=== PATIENT | female | born 1965 | race African-American/Black ===

== ENCOUNTER 2016-10-25 22:16 | Inpatient (IN) | payer MEDICARE, OTHER ==
[2016-10-25] MEDS ORDERED: ASPIRIN 81 MG TABLET, CHEWABLE PO ONE (23:22)
[2016-10-26 01:11] LABS: ABSOLUTE EOSINOPHILS # (AUTO) 0.3 10^3/uL (0.0-0.6); ABSOLUTE LYMPHOCYTES (AUTO) 0.7 10^3/uL (0.5-4.7); ABSOLUTE MONOCYTES (AUTO) 0.3 10^3/uL (0.1-1.4); ABSOLUTE NEUT (AUTO) 3.9 10^3/uL (1.7-8.2); BASOPHILS % (AUTO) 0.9 % (0-2); EOSINOPHILS % (AUTO) 5.1 % (0-6); HEMATOCRIT 27.2 % (36.0-47.0); HEMOGLOBIN 8.3 g/dL (12.0-15.5); HGB HCT DIFFERENCE -2.3; LYMPHOCYTES % (AUTO) 13.1 % (13-45); MEAN CORPUSCULAR HEMOGLOBIN 26.4 pg (27.0-33.4); MEAN CORPUSCULAR HGB CONC 30.6 g/dL (32.0-36.0); MEAN CORPUSCULAR VOLUME 86 fl (80-97); MONOCYTES % (AUTO) 6.3 % (3-13); RED BLOOD COUNT 3.15 10^6/uL (3.72-5.28); RED CELL DISTRIBUTION WIDTH 17.5 % (11.5-14.0); SEGMENTED NEUTROPHILS % (AUTO) 74.6 % (42-78); WHITE BLOOD COUNT 5.2 10^3/uL (4.0-10.5)
[2016-10-26 01:25] LABS: ALANINE AMINOTRANSFERASE 37 U/L (9-52); ALBUMIN 4.2 g/dL (3.5-5.0); ALKALINE PHOSPHATASE 204 U/L (38-126); ASPARTATE AMINO TRANSFERASE 33 U/L (14-36); BILIRUBIN,TOTAL 1.7 mg/dL (0.2-1.3); BLOOD UREA NITROGEN 118 mg/dL (7-20); CALCIUM 7.1 mg/dL (8.4-10.2); CHLORIDE 109 mmol/L (98-107); CREATINE KINASE 107 U/L (30-135); CREATININE RESULT 12.55 mg/dL (0.52-1.25); GLUCOSE 102 mg/dL (75-110); TOTAL PROTEIN 7.5 g/dL (6.3-8.2)
[2016-10-26 01:34] LABS: CARBON DIOXIDE 16 mmol/L (22-30); SODIUM 147.1 mmol/L (137-145)
[2016-10-26 01:38] LABS: ANION GAP 22 (5-19); POTASSIUM 7.2 mmol/L (3.6-5.0)
[2016-10-26] MEDS ORDERED: HEPARIN SOD (PORCINE) 1,000 UNIT/ML 10 ML VIAL IV ONE (03:20)
[2016-10-26] MEDS ORDERED: HEPARIN SODIUM,PORCINE/D5W 250 ML IV PRN (03:20)
[2016-10-26] MEDS ORDERED: SODIUM BICARBONATE 8.4% INJ 50 MEQ/50 ML DISP.SYRIN IV ONE (03:22)
[2016-10-26] MEDS ORDERED: DEXTROSE 50%-WATER 25 GM/50 ML DISP.SYRIN IV ONE (03:23)
[2016-10-26] MEDS ORDERED: INSULIN REG, HUMAN 100 UNIT/ML 3 ML VIAL (PYX) IV ONE (03:23)
[2016-10-26] MEDS ORDERED: HYDROMORPHONE HCL INJ/PF 2 MG/ML AMPULE IV ONE (03:24)
--- NOTE | 2016-10-26 03:25 | ER Document Report ---
ED General - General Chief Complaint: Leg Swelling Stated Complaint: LEFT LEG SWELLING Notes: Patient is 50-year-old female presents with complaint of left leg swelling and need for dialysis. Patient has been to ER several times with complaints of needing dialysis. [facility] She will just show up on Monday and hope to get dialysis. She does not actually go to dialysis clinic. She does not have an actual maintenance craftsman. She is been here several times as well for similar requests. She does have family in this area and therefore does visit this very frequently. She came down today because her [id number] had surgery. Patient also complains that her left leg has become swollen over last 2 days. She's never had this problem before. No history of DVT or PE. No chest pain. No shortness of breath. No fevers. No other complaints at this time. TRAVEL OUTSIDE OF THE [place] IN LAST 30 DAYS: No - Related Data Allergies/Adverse Reactions: acetaminophen [From Percocet] Allergy (Verified 04/16/15 02:18) oxycodone HCl [From Percocet] Allergy (Verified 04/16/15 02:18) alprazolam [From Xanax] Adverse Reaction (Verified 10/25/16 23:16) Hallucinations Past Medical History - Social History Smoking Status: Unknown if Ever Smoked Frequency of alcohol use: None Drug Abuse: Other Family History: Reviewed & Not Pertinent - Past Medical History Cardiac Medical History: Reports: Hx Coronary Artery Disease, Hx Hypertension Endocrine Medical History: Reports: Hx Diabetes Mellitus Type 1 Renal/ Medical History: Reports: Hx End Stage Renal Disease, Hx Peritoneal Dialysis - MWF Past Surgical History: Reports: Hx Coronary Stent, Hx Hysterectomy - Immunizations Immunizations up to date: No Hx Diphtheria, Pertussis, Tetanus Vaccination: No Review of Systems - Review of Systems Notes: My Normal Review Basic REVIEW OF SYSTEMS: CONSTITUTIONAL : Denies fever, chills, or sweats. Denies recent illness. EENT: Denies eye, ear, throat, or mouth pain or symptoms. Denies nasal or sinus congestion. CARDIOVASCULAR: Denies chest pain. RESPIRATORY: Some shortness of breath GASTROINTESTINAL: Denies abdominal pain. Denies nausea, vomiting, or diarrhea. Denies constipation. Last BM: MUSCULOSKELETAL: Body aches. left leg pain and swelling. SKIN: Denies rash or skin lesions. NEUROLOGICAL: Denies altered mental status or loss of consciousness. Denies headache. Denies weakness or paralysis or loss of use of either side. Denies problems with gait or speech. Denies sensory or motor loss. ALL OTHER SYSTEMS REVIEWED AND NEGATIVE. Physical Exam - Vital signs Vitals: Temp Pulse Resp BP Pulse Ox 98.1 F 90 17 184/86 H 99 10/25/16 22:57 10/25/16 22:57 10/25/16 22:57 10/25/16 22:57 10/25/16 22:57 - Notes Notes: General Appearance: Well nourished, alert, cooperative, no acute distress, mild obvious discomfort. Vitals: reviewed, See vital signs table. Head: no swelling or tenderness to the head Eyes: PERRL, EOMI, Conjuctiva clear Mouth: No decreasd moisture Neck: Supple, no neck tenderness, No thyromegaly Chest: Port in right anterior chest wall. Lungs: No wheezing, mild rales, No rhonci, No accessory muscle use, good air exchange bilaterally. Heart: Normal rate, Regular rythm, No murmur, no rub Abdomen: Normal BS, soft, No rigidity, No abdominal tenderness, No guarding, no rebound, no abdominal masses, no organomegaly Extremities: strength 5/5 in all extremities, good pulses in all extremities, left lower leg is extremely swollen. Very edematous. Bedside ultrasound shows that the proximal left femoral vein is noncompressible. Skin: warm, dry, appropriate color, no rash Neuro: speech clear, oriented x 3, normal affect, responds appropriately to questions. Course - Vital Signs Vital signs: Temp Pulse Resp BP Pulse Ox 98.1 F 90 17 184/89 H 99 10/25/16 23:18 10/25/16 23:18 10/25/16 23:18 10/25/16 23:18 10/25/16 23:18 - Laboratory Result Diagrams: 10/26/16 00:56 10/26/16 00:56 Laboratory results interpreted by me: 10/26/16 10/26/16 10/26/16 00:56 00:56 00:56 RBC 3.15 L Hgb 8.3 L Hct 27.2 L MCH 26.4 L MCHC 30.6 L RDW 17.5 H Plt Count 112 L PT 15.9 H APTT 38.8 H Sodium 147.1 H Potassium 7.2 H* Chloride 109 H Carbon Dioxide 16 L Anion Gap 22 H BUN 118 H Creatinine 12.55 H Est GFR ( Amer) 4 L Est GFR (Non-Af Amer) 3 L Calcium 7.1 L Total Bilirubin 1.7 H Alkaline Phosphatase 204 H - EKG Interpretation by Me Additional EKG results interpreted by me: 10/26/16 03:24 EKG is reviewed and interpreted by me. EKG shows normal sinus rhythm with rate of [address] segment elevation or depression. No ischemic T wave inversions. WV interval, QRS duration are within normal range. QTc interval is slightly prolonged. - Transfer of Care Notes: 10/26/16 03:43 I did perform a bedside ultrasound the patient's left leg being that we do not have venous ultrasound at night at this facility. Her left proximal femoral vein was completely noncompressible suggesting that she does have a DVT in the left leg. I will place her on a heparin drip. I did treat her for potassium. We'll do a recheck BMP in 2 hours. Her EKG shows no concerning changes for hyperkalemia. I did speak with the nursing supervisor stone and we do have availability for dialysis today. I did speak with the hospitalist who agrees to admit the patient for dialysis and treatment of what I suspect will be DVT of the left lower extremity. Patient clinically looks well. She is not working hard to breathe. Her lung charles just show mild rales. She does have some fluid on the lungs on chest x-ray. She has no fever no leukocytosis. I do not suspect pneumonia. Dictation of this chart was performed using voice recognition software; therefore, there may be some unintended grammatical errors. Discharge - Discharge Clinical Impression: leg swelling, Hyperkalemia, End stage renal disease Condition: Stable Disposition: ADMITTED INPATIENT Admitting Provider: Hospitalist Unit Admitted: [facility]
[2016-10-26 03:34] LABS: PROTHROMBIN TIME 15.9 SEC (11.4-15.4)
[2016-10-26 03:35] LABS: PARTIAL THROMBOPLASTIN TIME 38.8 SEC (23.5-35.8)
[2016-10-26 04:27] LABS: ABSOLUTE EOSINOPHILS # (AUTO) 0.2 10^3/uL (0.0-0.6); ABSOLUTE LYMPHOCYTES (AUTO) 0.6 10^3/uL (0.5-4.7); ABSOLUTE MONOCYTES (AUTO) 0.1 10^3/uL (0.1-1.4); ABSOLUTE NEUT (AUTO) 3.5 10^3/uL (1.7-8.2); BASOPHILS % (AUTO) 0.8 % (0-2); EOSINOPHILS % (AUTO) 4.5 % (0-6); HGB HCT DIFFERENCE -1.3; LYMPHOCYTES % (AUTO) 13.2 % (13-45); MEAN CORPUSCULAR HEMOGLOBIN 26.7 pg (27.0-33.4); MEAN CORPUSCULAR HGB CONC 31.5 g/dL (32.0-36.0); MEAN CORPUSCULAR VOLUME 85 fl (80-97); MONOCYTES % (AUTO) 1.5 % (3-13); RED BLOOD COUNT 2.95 10^6/uL (3.72-5.28); RED CELL DISTRIBUTION WIDTH 17.3 % (11.5-14.0); WHITE BLOOD COUNT 4.3 10^3/uL (4.0-10.5)
[2016-10-26 04:29] LABS: HEMOGLOBIN 7.9 g/dL (12.0-15.5)
[2016-10-26 04:40] LABS: CHLORIDE 107 mmol/L (98-107); GLUCOSE 313 mg/dL (75-110)
[2016-10-26 04:52] LABS: BLOOD UREA NITROGEN 122 mg/dL (7-20)
[2016-10-26 05:03] LABS: CARBON DIOXIDE 16 mmol/L (22-30)
[2016-10-26 05:06] LABS: ANION GAP 24 (5-19)
[2016-10-26 05:07] LABS: CALCIUM 6.6 mg/dL (8.4-10.2)
[2016-10-26] MEDS ORDERED: IPRATROPIUM/ALBUTEROL 0.5-2.5 MG/3 ML AMPUL NEB PRN (08:33)
[2016-10-26] MEDS ORDERED: CALCIUM GLUCONATE 1000 MG/10 ML INJ IV ONE ×2 (08:57→09:02)
--- NOTE | 2016-10-26 08:58 | PDOC H&P ---
History of Present Illness Admission Date/PCP: 10/26/16 03:51 None Nephro [place], [place] Patient complains of: LLE swelling History of Present Illness: HARVINDER LUZ is a 50 year old female with known end-stage renal disease, by her account on every Monday hemodialysis, but with her last hemodialysis session Monday of last week. According to emergency room physician, with whom I discussed the patient, patient has a known history of noncompliance with her hemodialysis. She lives in [place] , and goes to a dialysis clinic there but is currently in our area visiting family. Please refer to emergency room physician's notes for further discussion of same. Presents to the emergency room for evaluation of a 2 day history of slowly progressive left lower extremity swelling. No prior such episodes. Denies any history of DVT or pulmonary embolus. Mild associated shortness of breath and nausea but no vomiting fever or chills. No chest pain. Occasional dry cough, but nothing out of the ordinary, according to the patient. With formal Doppler study not available in the redrying machine operator hours at our facility, the emergency room physician performed a bedside ultrasound, which revealed a completely noncompressible proximal left femoral vein, suggesting DVT. He has since started her on heparin drip for same. Systemic anticoagulation discussed with patient. Patient understands the risks of systemic anti-coagulation to include but not be limited to internal bleeding , which can take the form of GI tract and/or intracranial hemorrhage, the latter of which can result in or stroke with permanent paralysis. Patient has no absolute contraindication to systemic anticoagulation. Above discussed in lay person's terms. Patient agrees to undergo systemic anticoagulation. Patient has been discussed with emergency room physician who evaluated the patient. . Laboratory results are listed in [facility] and are reviewed. X-ray summary results are listed below, with full report(s) reviewed. . EKG reviewed. And compared to prior tracing from 02/24/2016. Social history/personal habits: . 3 children. On disability. No use of alcohol tobacco or illicit drugs. Allergies/adverse reactions are listed in [facility] and are reviewed. Home medications Home medications initially autopopulated into [facility] may not accurately reflect patient's true medications, dosages, and/or frequencies. Unfortunately, patient uncertain of medications/dosages/frequencies. Order has been entered for staff to contact family, outpatient physician, and/or pharmacy to more accurately determine medications, dosages, and frequencies and to contact physician when that has been accomplished. REVIEW OF SYSTEMS: Constitutional: No fever or chills. Eyes: No current vision complaints. ENT: No swallowing problems or complaints. Partial hearing loss. Pulmonary: See history and present illness. Cardiovascular: No current complaints, including chest pain. Gastrointestinal: See history and present illness. Skin: No current complaints, including rashes. Hematologic: No unusual easy bruising or bleeding. Neurologic: Difficulty ambulating, due to prior stroke; patient currently undergoing rehabilitation for same. Currently uses a walker. Musculoskeletal: See history and present illness. Psychiatric: Mild Anxiety Endocrine: No current complaints, including polyuria. Genitourinary: No current complaints, including dysuria. PHYSICAL EXAMINATION: Feet 1 inches tall. 65.5 kg. KATIE 27.3 kg/m. Blood pressure 147/84. Pulse 79 and regular. 100% saturation on room air. Respirations are 18 and unlabored. Temperature 98.1. Slightly overweight otherwise well nourished though somewhat chronically ill- appearing -[place] female, initially asleep. Awakens relatively easily. Pleasant alert and cooperative. No obvious distress other than perhaps mildly anxious. Female steward/stewardess lounge Gemini is present. Skin is warm and dry. No grossly obvious evidence of rash in areas of skin examined. No subcutaneous nodules palpated. ENT: Hearing grossly normal to normal conversation. Tongue midline on protrusion pink and slightly moist. Eyes: No scleral icterus. Pupils equal and reactive to light at 4 mm. [place] conjunctivae. Neck is supple and nontender to gentle active range of motion and palpation. Midline trachea. No palpable thyroid nodule mass enlargement or tenderness. Lymphatic: No palpable cervical or clavicular nodes. Neck and lymphatic exams limited by patient body habitus. Psychiatric: Fair to reasonable insight into acute and chronic medical issues. Oriented to time location and why here. Lungs: Auscultation reveals clear and equal breath sounds bilaterally. No use of accessory respiratory muscles. Cardiovascular: Heart regular rate and rhythm, without murmur or rub. Possible subtle gallop auscultated. No carotid or abdominal aortic bruits. Bilateral slightly pitting calf ankle and pedal edema, more prominent on the left. Faintly palpable dorsalis pedis pulses. Abdomen: soft, somewhat obese, nontender with positive bowel sounds. Unable to adequately evaluate abdomen for masses or organomegaly due to body habitus. Extremities: Feet are warm and dry. No right calf tenderness to compression; mild left calf tenderness to compression. Gentle manipulation of lower extremities fails to reveal any obvious evidence of injury or instability to knees hips or ankles. There is slightly restricted range of motion of left knee due to calf swelling. Neurologic: Moves upper extremities grossly normally. Patellar reflexes absent. Absent Babinski. Light touch is intact at feet. Dorsiflexion and plantarflexion of feet 5 / 5 and symmetric. Past Medical History Cardiac Medical History: Reports: Coronary Artery Disease, Myocardial Infarction , Hypertension Denies: DVT, Hyperlipidema, Pulmonary Embolism Pulmonary Medical History: Reports: Asthma EENT Medical History: Reports: Ears - Partial hearing loss Denies: Eyes, Throat Neurological Medical History: Reports: Ischemic CVA - Subsequent ambulatory difficulty, currently undergoing rehabilitation for same., Seizures - Last episode in 2014. Endocrine Medical History: Denies: Diabetes Mellitus Type 1, Diabetes Mellitus Type 2, Hyperthyroidism, Hypothyroidism Renal/ Medical History: Reports: End Stage Renal Disease GI Medical History: Reports: Gastroesophageal Reflux Disease Denies: Cirrhosis, Hepatitis, Peptic Ulcer Disease Musculoskeltal Medical History: Denies: Arthritis Skin Medical History: Denies: Eczema, Psoriasis, Other Psychiatric Medical History: Reports: General Anxiety Disorder Denies: Alcohol Dependency, Depression, Substance Abuse, Tobacco Dependency Hematology: Reports: Anemia - Chronic Infectious Medical History: Denies: Hepatitis B, Hepatitis C Past Surgical History Past Surgical History: Reports: Coronary Stent, Hysterectomy, Other - Hemodialysis catheter insertion. Social History Information Source: Patient, Emergency Med Personnel, [facility] Records Lives with: Spouse/Significant other Smoking Status: Unknown if Ever Smoked Frequency of Alcohol Use: None Hx Recreational Drug Use: No Drugs: None Hx Prescription Drug Abuse: No - Advance Directive Resuscitation Status: Full Code Surrogate healthcare decision maker:: Family History Family History: Reviewed & Not Pertinent Parental Family History Reviewed: Yes Children Family History Reviewed: Yes Sibling(s) Family History Reviewed.: Yes Medication/Allergy Home Medications: B Complex & C No.20/Folic Acid [Triphrocaps Softgel] 1 mg PO DAILY 10/26/16 Calcitriol [Rocaltrol 0.5 mcg Capsule] 0.5 mcg PO DAILY 10/26/16 Clonazepam [Klonopin 2 mg Tablet] 2 mg PO BID 10/26/16 Efavirenz [Sustiva 600 mg Tablet] 600 mg PO DAILY 10/26/16 Furosemide [Lasix 80 mg Tablet] 80 mg PO DAILY 10/26/16 Gabapentin [Neurontin 300 mg Capsule] 300 mg PO Q8 10/26/16 Hydromorphone HCl [Dilaudid 2 mg Tablet] 2 mg PO BID 10/26/16 Ipratropium/Albuterol Sulfate [Iprat-Albut 0.5-3(2.5) mg/3 ml] 3 ml IH Q6HP PRN 10/26/16 Labetalol HCl [Trandate] 200 mg PO Q8 10/26/16 Lamivudine [Epivir Hbv] 25 mg PO DAILY 10/26/16 Levetiracetam [Keppra] 500 mg PO Q12 10/26/16 Minoxidil [Loniten 2.5 Mg Tablet] 2.5 mg PO BID PRN 10/26/16 Allergies/Adverse Reactions: acetaminophen [From Percocet] Allergy (Verified 10/26/16 08:46) rash oxycodone HCl [From Percocet] Allergy (Verified 04/16/15 02:18) sulfamethoxazole [From Bactrim] Allergy (Verified 10/26/16 09:59) trimethoprim [From Bactrim] Allergy (Verified 10/26/16 09:59) alprazolam [From Xanax] Adverse Reaction (Verified 10/26/16 08:46) Hallucinations Physical Exam Vital Signs: Temp Pulse Resp BP Pulse Ox 98.1 F 90 13 128/78 H 100 10/25/16 23:18 10/25/16 23:18 10/26/16 08:01 10/26/16 08:01 10/26/16 08:01 Results Laboratory Results: 10/26/16 04:15 10/26/16 10/26/16 10/26/16 04:15 04:15 07:12 WBC 4.3 RBC 2.95 L Hgb 7.9 L Hct 25.0 L MCV 85 MCH 26.7 L MCHC 31.5 L RDW 17.3 H Plt Count 108 L Seg Neutrophils % 80.0 H Lymphocytes % 13.2 Monocytes % 1.5 L Eosinophils % 4.5 Basophils % 0.8 Absolute Neutrophils 3.5 Absolute Lymphocytes 0.6 Absolute Monocytes 0.1 Absolute Eosinophils 0.2 Absolute Basophils 0.0 Sodium 147.0 H Cancelled Potassium 7.0 H* Cancelled Chloride 107 Cancelled Carbon Dioxide 16 L Cancelled Anion Gap 24 H Cancelled BUN 122 H Cancelled Creatinine 12.40 H Cancelled Est GFR ( Amer) 4 L Cancelled Est GFR (Non-Af Amer) 3 L Cancelled Glucose 313 H Cancelled Calcium 6.6 L* Cancelled Total Bilirubin Cancelled AST Cancelled ALT Cancelled Alkaline Phosphatase Cancelled Total Protein Cancelled Albumin Cancelled 10/26/16 07:12 WBC RBC Hgb Hct MCV MCH MCHC RDW Plt Count Seg Neutrophils % Lymphocytes % Monocytes % Eosinophils % Basophils % Absolute Neutrophils Absolute Lymphocytes Absolute Monocytes Absolute Eosinophils Absolute Basophils Sodium Potassium Cancelled Chloride Carbon Dioxide Anion Gap BUN Creatinine Est GFR ( Amer) Est GFR (Non-Af Amer) Glucose Calcium Total Bilirubin AST ALT Alkaline Phosphatase Total Protein Albumin Impressions: Chest X-Ray 10/25/16 23:22 IMPRESSION: Moderate airspace opacities of both lung charles ; differential diagnosis includes pulmonary edema, CHF, and/ or pneumonia. Assessment & Plan - Diagnosis (1) Abnormal CXR Plan: Report reviewed. Consultation with Dr. Gorge Salomon for possible adjustment of the dialysis catheter. (2) Anticoagulated Is this a current diagnosis for this admission?: Yes (3) Hyperkalemia Is this a current diagnosis for this admission?: YesPlan: Discussed with Dr. Moody, instructional design consultant nephrology. Patient currently being dialyzed. (4) Swelling of left lower extremity Is this a current diagnosis for this admission?: Yes (5) End stage renal disease Is this a current diagnosis for this admission?: YesPlan: Nephrology consult. (6) Deep vein thrombosis (DVT) of left lower extremity Qualifiers: Affected thrombotic vein of extremity: unspecified vein of extremity Chronicity: acute Qualified Code(s): I82.402 - Acute embolism and thrombosis of unspecified deep veins of left lower extremity Is this a current diagnosis for this admission?: YesPlan: Formal Bilateral lower extremity venous Doppler study. I have strongly encouraged patient not to get out of bed without notifying staff , to avoid a fall with injury. Knee high SCDs for DVT prophylaxis. Impression and plans were discussed with patient, who concurs. Time spent in evaluation and management of patient: 55 minutes. - Inpatient Certification Based on my medical assessment, after consideration of the patient's comorbidities, presenting symptoms, or acuity I expect that the services needed warrant INPATIENT care.: Yes I certify that my determination is in accordance with my understanding of Medicare's requirements for reasonable and necessary INPATIENT services [42 CFR 412.3e].: Yes Medical Necessity: Significant Comorbidiites Make Outpatient Treatment Too Risky , Need Close Monitoring Due to Risk of Patient Decompensation, Need For Continuous Telemetry Monitoring, Risk of Complication if Not Cared For in Hospital Post Hospital Care: D/C or Transfer Summary
[2016-10-26 09:38] LABS: ALANINE AMINOTRANSFERASE 32 U/L (9-52); ALBUMIN 3.7 g/dL (3.5-5.0); ALKALINE PHOSPHATASE 191 U/L (38-126); ASPARTATE AMINO TRANSFERASE 32 U/L (14-36); BILIRUBIN,TOTAL 1.6 mg/dL (0.2-1.3); CARBON DIOXIDE 17 mmol/L (22-30); CHLORIDE 107 mmol/L (98-107); CREATININE RESULT 12.89 mg/dL (0.52-1.25); GLUCOSE 84 mg/dL (75-110); SODIUM 147.3 mmol/L (137-145); TOTAL PROTEIN 7.1 g/dL (6.3-8.2)
[2016-10-26 09:46] LABS: BLOOD UREA NITROGEN 126 mg/dL (7-20)
--- NOTE | 2016-10-26 09:51 | PDOC CONSULTATION ---
Consultation Consult Date: 10/26/16 Consult reason:: Congestive heart failure and severe hyperkalemia in the setting of ESRD on hemodialysis with noncompliance. History of Present Illness Admission Date/PCP: 10/26/16 08:33 History of Present Illness: Mrs. García is a 50 years old -[place] lady with a past medical history of ESRD on hemodialysis for many years through a right IJ catheter from [place] who is here visiting family and comes in to the ER with complaints of pain and swelling of left leg and some shortness of breath. She is ESRD patient on dialysis in [place] and is unsure of dump grader. She has had a history of severe noncompliance on many fronts. He states her last dialysis was Monday. She had a similar presentation with severe hyperkalemia early of last year and was dialyzed here. Besides that she has had presentations to the ER for various issues down the road. Patient denies any worsening of her shortness of breath no estimate chest pain no history of any coughing spells fever chills. She has had no clotting disorders in the past. During evaluations in the ER by the ER doctor she was found to have left DVT on initial Doppler study. A confirmatory Doppler studies pending but she has been begun on IV heparin. The notes that the swelling is somewhat better since she has been on the IV heparin. Other studies revealed that she had a potassium of 7.2. She has been administered D50/insulin and IV bicarbonate. Incidentally I also noted that her calcium was also low.. Unfortunately that has not been addressed. Presently the patient is undergoing dialysis as per orders placed by me and discussed with the treating nurse. She has no issues on dialysis. Vital signs show that her blood pressures is in the high 180 systolic. Past Medical History Cardiac Medical History: Reports: Coronary Artery Disease, Hypertension-primary Renal/ Medical History: Reports: End Stage Renal Disease Hematology Medical History: Reports Anemia of Chronic Kidney Disease Past Surgical History Past Surgical History: Reports: Coronary Stent, Hysterectomy Social History Smoking Status: Unknown if Ever Smoked Frequency of Alcohol Use: None Hx Recreational Drug Use: No Drugs: None Hx Prescription Drug Abuse: No Family History Parental Family History Reviewed: No Children Family History Reviewed: No Sibling(s) Family History Reviewed.: No Medication/Allergy Home Medications: Calcitriol 1 cap PO DAILY 10/26/16 Clonazepam 2 tab PO BID 10/26/16 Ergocalciferol (Vitamin D2) [Vitamin D] 2.5 tab PO BID 10/26/16 Gabapentin 1 cap PO BID 10/26/16 Lactobacillus Combination No.4 [Probiotic] 1 cap PO DAILY 10/26/16 Levetiracetam [Keppra 500 mg Tablet] 1 tab PO BID 10/26/16 Allergies/Adverse Reactions: acetaminophen [From Percocet] Allergy (Verified 10/26/16 08:46) rash oxycodone HCl [From Percocet] Allergy (Verified 04/16/15 02:18) alprazolam [From Xanax] Adverse Reaction (Verified 10/26/16 08:46) Hallucinations Review of Systems Review of Systems: Constitutional: [PRESENT: as per HPI. ABSENT: chills, fever(s), headache(s), weight gain, weight loss] Eyes: [ABSENT: visual disturbances] Ears: [ABSENT: hearing changes] Cardiovascular: [ABSENT: chest pain, edema, orthropnea, palpitations] Respiratory: [ABSENT: cough, hemoptysis] Gastrointestinal: [ABSENT: abdominal pain, constipation, diarrhea, hematemesis, hematochezia, nausea, vomiting] Genitourinary: [ABSENT: dysuria, hematuria] Musculoskeletal: [ABSENT: joint swelling] Integumentary: [ABSENT: rash, wounds] Neurological: [ABSENT: abnormal gait, abnormal speech, confusion, dizziness, focal weakness, syncope] Psychiatric: [ABSENT: anxiety, depression, homicidal ideation, suicidal ideation ] Endocrine: [ABSENT: cold intolerance, heat intolerance, menstrual abnormalities , polydipsia, polyuria] Hematologic/Lymphatic: [ABSENT: easy bleeding, easy bruising, lymphadenopathy] Constitutional: ABSENT: headache(s) Physical Exam Vital Signs: Temp Pulse Resp BP Pulse Ox 98.1 F 90 13 128/78 H 100 10/25/16 23:18 10/25/16 23:18 10/26/16 08:01 10/26/16 08:01 10/26/16 08:01 General appearance: PRESENT: no acute distress Eye exam: PRESENT: conjunctiva pink, EOMI, PERRLA. ABSENT: nystagmus, periorbital swelling Mouth exam: PRESENT: moist. ABSENT: neck supple Neck exam: ABSENT: lymphadenopathy, meningismus, tenderness, thyromegaly, tracheal deviation Respiratory exam: PRESENT: clear to auscultation dee, decreased breath sounds. ABSENT: crackles, rhonchi Cardiovascular exam: PRESENT: +S1, +S2, systolic murmur GI/Abdominal exam: PRESENT: soft. ABSENT: ascites, distended, firm, guarding, tenderness Extremities exam: PRESENT: +1 edema - However her left leg has got 1-2+ edema with tenderness around the cuff muscles. Neurological exam: PRESENT: alert, awake, oriented to person, oriented to place , oriented to time Psychiatric exam: PRESENT: flat affect Skin exam: PRESENT: pallor. ABSENT: dry, erythema, mottled, rash, vesicles Results Impressions: Chest X-Ray 10/25/16 23:22 IMPRESSION: Moderate airspace opacities of both lung charles ; differential diagnosis includes pulmonary edema, CHF, and/ or pneumonia. Assessment & Plan - Diagnosis (1) Hypocalcemia Plan: Her corrected calcium is low. Will place orders for stat IV calcium which has been discussed with the treating nurse in the ED. Especially so because of her hyperkalemia. We will also follow this with p.o. calcium and calcitriol which I doubt she has been taking because of issues with noncompliance. Discuss issues with the patient and her . (2) Hyperkalemia Is this a current diagnosis for this admission?: YesPlan: Severe. However no EKG changes. She is on dialysis now which should rectify her problems. Orders placed for 1 K into 2 hours followed by 2 k for 1 hour. We will also give her IV calcium for stabilizing myocardium. (3) End stage renal disease Is this a current diagnosis for this admission?: YesPlan: Patient undergoing dialysis at the moment. No issues seen on dialysis. Vital signs shows high blood pressure in the 180s systolics. See how she responds to ultrafiltration. Aim to remove at least 3 L of fluid. Patient's is electing to not do more than that of the moment because apparently she goes into hypotensive episodes. Discussed with the patient about the fact that she is in heart failure and she would tolerate more fluid removal but patient's is adamant of the moment. Continue to monitor. Discuss issues at length with the treating nurse. (4) Deep vein thrombosis (DVT) of left lower extremity Qualifiers: Affected thrombotic vein of extremity: unspecified vein of extremity Chronicity: acute Qualified Code(s): I82.402 - Acute embolism and thrombosis of unspecified deep veins of left lower extremity Is this a current diagnosis for this admission?: YesPlan: As per hospitalist/ED physician. Patient on IV heparin. (5) Anemia Qualifiers: Other causes of anemia: chronic disease, kidney Qualified Code(s): D64.9 - Anemia, unspecified Plan: Was planning to give erythropoietin but because of his severe hypertension we will hold off. We will check iron studies and see if she needs iron replacements in the meanwhile. (6) CHF (congestive heart failure) Plan: See how she responds to dialysis and ultrafiltration. Advised on compliance with diet and dialysis.
[2016-10-26 09:59] LABS: ANION GAP 23 (5-19)
[2016-10-26 10:01] LABS: CALCIUM 6.4 mg/dL (8.4-10.2)
[2016-10-26 10:02] LABS: POTASSIUM 6.8 mmol/L (3.6-5.0)
[2016-10-26] MEDS: CALCIUM CARBONATE 500 MG TAB.CHEW PO SCH ×2 (10:45→17:22)
[2016-10-26] MEDS: DOCUSATE SODIUM 100 MG CAPSULE PO SCH ×2 (10:45→17:23)
[2016-10-26] MEDS: CALCITRIOL 0.25 MCG CAPSULE PO SCH ×2 (10:45→17:22)
[2016-10-26] MEDS ORDERED: HEPARIN SOD (PORCINE) 1,000 UNIT/ML 10 ML VIAL IV PRN (11:07)
--- NOTE | 2016-10-26 12:14 | XCELERA REPORT ---
[address] [address] Lower Extremity Venous Evaluation Name: HARVINDER LUZ Age: 50 yrs Gender: Female : 1965 Patient Status: Inpatient Patient Location: \S\[id number]\S\A Study Date: 10/26/2016 10:10 AM Procedure: Color flow and duplex imaging of the veins of the left lower extremity as well as the right Common Femoral vein. Reason For Study: LLE swelling; DVT on ER MD U/S Ordering Physician: JOLENE LUX Performed By: Saud Browning Right Sided Venous Evaluation The right common femoral vein is fully compressible. Spontaneous and phasic flow is present in the right common femoral vein. Left Sided Venous Evaluation Normal vessel filling wall to wall, compression and augmentation as well as Colour flow down to the infrageniculate veins. Interpretation Summary No duplex evidence of DVT or obstruction in the left lower extremity nor in the right Common Femoral vein. : JOLENE LUX [place]
--- NOTE | 2016-10-26 14:56 | EKG REPORT ---
SEVERITY:- ABNORMAL ECG - SINUS RHYTHM ABNRM R PROG, CONSIDER ASMI OR LEAD PLACEMENT : Confirmed by: Lizzy Santana MD 26-Oct-2016 14:55:24
--- NOTE | 2016-10-26 16:08 | PDOC PROGRESS REPORT ---
Subjective Progress Note for:: 10/26/16 Subjective:: The patient was seen earlier today on rounds. The patient complains of left leg pain. Doppler is negative. The patient denies any nausea, vomiting, diarrhea, shortness of breath, dizziness, chest pain, heart palpitations, fevers , or chills. The patient has remained afebrile. Blood pressures have been in a good range. When prompted the patient voices no other concerns at this time. Review of systems: The rest of the review of systems is negative. Physical Exam Vital Signs: Temp Pulse Resp BP Pulse Ox 97.5 F 85 20 107/61 100 10/26/16 14:01 10/26/16 14:01 10/26/16 14:01 10/26/16 14:01 10/26/16 14:01 Intake & Output 10/24/16 10/25/16 10/26/16 23:59 23:59 23:59 Output Total 3200 Balance -3200 General appearance: PRESENT: no acute distress, well-developed, well-nourished Head exam: PRESENT: atraumatic, normocephalic Eye exam: PRESENT: conjunctiva pink, EOMI, PERRLA. ABSENT: scleral icterus Ear exam: PRESENT: normal external ear exam Mouth exam: PRESENT: moist, tongue midline Neck exam: ABSENT: carotid bruit, JVD, lymphadenopathy, thyromegaly Respiratory exam: PRESENT: clear to auscultation dee. ABSENT: rales, rhonchi, wheezes Cardiovascular exam: PRESENT: RRR. ABSENT: diastolic murmur, rubs, systolic murmur Pulses: PRESENT: normal dorsalis pedis pul Vascular exam: PRESENT: normal capillary refill GI/Abdominal exam: PRESENT: normal bowel sounds, soft. ABSENT: distended, guarding, mass, organolmegaly, rebound, tenderness Rectal exam: PRESENT: deferred Extremities exam: PRESENT: full ROM, other - Feet are warm and dry. No right calf tenderness to compression; mild left calf tenderness to compression. Gentle manipulation of lower extremities fails to reveal any obvious evidence of injury or instability to knees hips or ankles.. ABSENT: calf tenderness, clubbing, pedal edema Neurological exam: PRESENT: alert, awake, oriented to person, oriented to place , oriented to time, oriented to situation, CN II-XII grossly intact. ABSENT: motor sensory deficit Psychiatric exam: PRESENT: appropriate affect, normal mood. ABSENT: homicidal ideation, suicidal ideation Skin exam: PRESENT: dry, intact, warm. ABSENT: cyanosis, rash Results Laboratory Results: Labs- Last Values WBC 4.3 10^3/uL (4.0-10.5) 10/26/16 04:15 RBC 2.95 10^6/uL (3.72-5.28) L 10/26/16 04:15 Hgb 7.9 g/dL (12.0-15.5) L 10/26/16 04:15 Hct 25.0 % (36.0-47.0) L 10/26/16 04:15 MCV 85 fl (80-97) 10/26/16 04:15 MCH 26.7 pg (27.0-33.4) L 10/26/16 04:15 MCHC 31.5 g/dL (32.0-36.0) L 10/26/16 04:15 RDW 17.3 % (11.5-14.0) H 10/26/16 04:15 Plt Count 108 10^3/uL (150-450) L 10/26/16 04:15 Seg Neutrophils % 80.0 % (42-78) H 10/26/16 04:15 Lymphocytes % 13.2 % (13-45) 10/26/16 04:15 Monocytes % 1.5 % (3-13) L 10/26/16 04:15 Eosinophils % 4.5 % (0-6) 10/26/16 04:15 Basophils % 0.8 % (0-2) 10/26/16 04:15 Absolute Neutrophils 3.5 10^3/uL (1.7-8.2) 10/26/16 04:15 Absolute Lymphocytes 0.6 10^3/uL (0.5-4.7) 10/26/16 04:15 Absolute Monocytes 0.1 10^3/uL (0.1-1.4) 10/26/16 04:15 Absolute Eosinophils 0.2 10^3/uL (0.0-0.6) 10/26/16 04:15 Absolute Basophils 0.0 10^3/uL (0.0-0.2) 10/26/16 04:15 PT 15.9 SEC (11.4-15.4) H 10/26/16 00:56 INR 1.23 10/26/16 00:56 APTT 40.6 SEC (23.5-35.8) H 10/26/16 11:43 Sodium 147.3 mmol/L (137-145) H 10/26/16 08:26 Potassium 6.8 mmol/L (3.6-5.0) H* 10/26/16 08:26 Chloride 107 mmol/L (98-107) 10/26/16 08:26 Carbon Dioxide 17 mmol/L (22-30) L 10/26/16 08:26 Anion Gap 23 (5-19) H 10/26/16 08:26 BUN 126 mg/dL (7-20) H 10/26/16 08:26 Creatinine 12.89 mg/dL (0.52-1.25) H 10/26/16 08:26 Est GFR ( Amer) 4 (>60) L 10/26/16 08:26 Est GFR (Non-Af Amer) 3 (>60) L 10/26/16 08:26 Glucose 84 mg/dL (75-110) 10/26/16 08:26 Calcium 6.4 mg/dL (8.4-10.2) L* 10/26/16 08:26 Total Bilirubin 1.6 mg/dL (0.2-1.3) H 10/26/16 08:26 Direct Bilirubin 0.0 mg/dL (0.0-0.3) 10/26/16 08:26 AST 32 U/L (14-36) 10/26/16 08:26 ALT 32 U/L (9-52) 10/26/16 08:26 Alkaline Phosphatase 191 U/L (38-126) H 10/26/16 08:26 Creatine Kinase 107 U/L (30-135) 10/26/16 00:56 CK-MB (CK-2) 1.44 ng/mL (<4.55) 10/26/16 00:56 Total Protein 7.1 g/dL (6.3-8.2) 10/26/16 08:26 Albumin 3.7 g/dL (3.5-5.0) 10/26/16 08:26 Impressions: Chest X-Ray 10/25/16 23:22 IMPRESSION: Moderate airspace opacities of both lung charles ; differential diagnosis includes pulmonary edema, CHF, and/ or pneumonia. Assessment & Plan - Diagnosis (1) Hyperkalemia Is this a current diagnosis for this admission?: YesPlan: Secondary to noncompliance. The patient has been dialyzed will repeat potassium and follow. (2) Hypocalcemia Is this a current diagnosis for this admission?: YesPlan: Management as per nephrology will repeat and follow. (3) End stage renal disease Is this a current diagnosis for this admission?: YesPlan: Patient has been dialyzed. (4) Anemia in chronic kidney disease Is this a current diagnosis for this admission?: YesPlan: Will repeat CBC in the a.m. and follow. (5) Benzodiazepine dependence, continuous Is this a current diagnosis for this admission?: YesPlan: Resume home medications when necessary (6) Opiate dependence, continuous Is this a current diagnosis for this admission?: YesPlan: Resume home medications. - Time Time Spent with patient: on this visit including assessment, plan, physical examination, family meeting, and specialty collaboration, and patient education is 35 minutes. Time Spent with patient: 35 or more minutes Medications reviewed and adjusted accordingly: Yes Anticipated discharge: Home Within: within 48 hours Disposition: The patient is a full code. Pending patient's symptomatology and diagnostic findings will reevaluate in the a.m.
[2016-10-26] MEDS ORDERED: EFAVIRENZ 600 MG TABLET PO ONE (17:00)
[2016-10-26] MEDS: HYDROMORPHONE HCL 2 MG TABLET PO PRN (17:22)
[2016-10-26 17:29] LABS: CALCIUM 7.3 mg/dL (8.4-10.2); CHLORIDE 98 mmol/L (98-107); CREATININE RESULT 7.53 mg/dL (0.52-1.25); GLUCOSE 119 mg/dL (75-110); SODIUM 141.5 mmol/L (137-145)
[2016-10-26 17:39] LABS: ANION GAP 17 (5-19)
[2016-10-26 17:40] LABS: BLOOD UREA NITROGEN 63 mg/dL (7-20); CARBON DIOXIDE 27 mmol/L (22-30); POTASSIUM 4.8 mmol/L (3.6-5.0)
[2016-10-26] MEDS: CLONAZEPAM 1 MG TABLET PO PRN (17:48)
[2016-10-26] MEDS: GABAPENTIN 300 MG CAPSULE PO SCH (21:34)
[2016-10-26] MEDS: LEVETIRACETAM 500 MG TABLET PO SCH (21:35)
[2016-10-26] MEDS ORDERED: LABETALOL HCL 200 MG PO SCH (22:00)
[2016-10-26] MEDS: LABETALOL HCL 200 MG TABLET PO SCH (22:54)
[2016-10-27] MEDS: GABAPENTIN 300 MG CAPSULE PO SCH ×3 (05:21→21:28)
[2016-10-27] MEDS: LABETALOL HCL 200 MG TABLET PO SCH ×3 (05:21→21:28)
[2016-10-27 05:56] LABS: HEMATOCRIT 26.3 % (36.0-47.0); HEMOGLOBIN 8.3 g/dL (12.0-15.5); HGB HCT DIFFERENCE -1.4; MEAN CORPUSCULAR HEMOGLOBIN 26.7 pg (27.0-33.4); MEAN CORPUSCULAR HGB CONC 31.7 g/dL (32.0-36.0); MEAN CORPUSCULAR VOLUME 84 fl (80-97); RED BLOOD COUNT 3.12 10^6/uL (3.72-5.28); RED CELL DISTRIBUTION WIDTH 17.4 % (11.5-14.0); WHITE BLOOD COUNT 5.3 10^3/uL (4.0-10.5)
[2016-10-27] MEDS: CLONAZEPAM 1 MG TABLET PO PRN ×2 (06:06→18:26)
[2016-10-27] MEDS: HYDROMORPHONE HCL 2 MG TABLET PO PRN ×2 (06:11→18:26)
[2016-10-27 06:21] LABS: ANION GAP 17 (5-19); BLOOD UREA NITROGEN 78 mg/dL (7-20); CARBON DIOXIDE 25 mmol/L (22-30); CHLORIDE 100 mmol/L (98-107); CREATININE RESULT 8.64 mg/dL (0.52-1.25); GLUCOSE 91 mg/dL (75-110); PHOSPHORUS 8.5 mg/dL (2.5-4.5); SODIUM 142.4 mmol/L (137-145)
[2016-10-27 06:44] LABS: POTASSIUM 5.8 mmol/L (3.6-5.0)
[2016-10-27 06:58] LABS: ADD ON TESTING BLD IN LAB ACKNOWLEDGE
[2016-10-27 07:10] LABS: ALBUMIN 3.3 g/dL (3.5-5.0)
[2016-10-27] MEDS: CALCIUM CARBONATE 500 MG TAB.CHEW PO SCH ×2 (09:17→17:54)
[2016-10-27] MEDS: FOLIC ACID/VITAMIN B COMP W-C CAPSULE PO SCH (09:18)
[2016-10-27] MEDS: DOCUSATE SODIUM 100 MG CAPSULE PO SCH ×2 (09:18→17:58)
[2016-10-27] MEDS: CALCITRIOL 0.25 MCG CAPSULE PO SCH ×2 (09:18→17:58)
[2016-10-27] MEDS: LEVETIRACETAM 500 MG TABLET PO SCH ×2 (09:19→21:28)
[2016-10-27] MEDS: EFAVIRENZ 600 MG TABLET PO SCH (09:21)
[2016-10-27] MEDS ORDERED: LAMIVUDINE PO SCH (10:00)
[2016-10-27] MEDS ORDERED: CALCITRIOL 0.25 MCG CAPSULE PO SCH (10:00)
[2016-10-27] MEDS ORDERED: (PENDING PHARMACY ID) (Calcitriol [Rocaltrol 0.5 Mcg Capsule] 0.5 MCG) PO SCH (10:00)
[2016-10-27] MEDS ORDERED: CALCIUM GLUCONATE 1,000 MG in DEXTROSE 5%-WATER 50 ML IV ONE (10:07)
[2016-10-27] MEDS ORDERED: CALCIUM GLUCONATE 1000 MG/10 ML INJ IV ONE (11:00)
[2016-10-27] MEDS ORDERED: MINOXIDIL 2.5 MG TABLET PO ONE (13:30)
--- NOTE | 2016-10-27 15:54 | PDOC PROGRESS REPORT ---
Subjective Progress Note for:: 10/27/16 Subjective:: The patient was seen earlier today on rounds. The patient states that her symptoms overall have improved but she still feels very weak. Edema in her legs has improved. The patient denies any nausea, vomiting, diarrhea, shortness of breath, dizziness, chest pain, heart palpitations, fevers, or chills. The patient has remained afebrile. Blood pressures have been in a good range. When prompted the patient voices no other concerns at this time. Review of systems: The rest of the review of systems is negative. Physical Exam Vital Signs: Temp Pulse Resp BP Pulse Ox 98.2 F 82 16 159/77 H 100 10/27/16 15:11 10/27/16 15:11 10/27/16 15:11 10/27/16 15:11 10/27/16 15:11 Intake & Output 10/25/16 10/26/16 10/27/16 23:59 23:59 23:59 Intake Total 5 1349 Output Total 3200 Balance -3195 1349 Weight 66.5 kg General appearance: PRESENT: no acute distress, well-developed, well-nourished Head exam: PRESENT: atraumatic, normocephalic Eye exam: PRESENT: conjunctiva pink, EOMI, PERRLA. ABSENT: scleral icterus Ear exam: PRESENT: normal external ear exam Mouth exam: PRESENT: moist, tongue midline Neck exam: ABSENT: carotid bruit, JVD, lymphadenopathy, thyromegaly Respiratory exam: PRESENT: clear to auscultation dee. ABSENT: rales, rhonchi, wheezes Cardiovascular exam: PRESENT: RRR. ABSENT: diastolic murmur, rubs, systolic murmur Pulses: PRESENT: normal dorsalis pedis pul Vascular exam: PRESENT: normal capillary refill GI/Abdominal exam: PRESENT: normal bowel sounds, soft. ABSENT: distended, guarding, mass, organolmegaly, rebound, tenderness Rectal exam: PRESENT: deferred Extremities exam: PRESENT: full ROM, other - Feet are warm and dry. No right calf tenderness to compression; mild left calf tenderness to compression. Gentle manipulation of lower extremities fails to reveal any obvious evidence of injury or instability to knees hips or ankles.. ABSENT: calf tenderness, clubbing, pedal edema Neurological exam: PRESENT: alert, awake, oriented to person, oriented to place , oriented to time, oriented to situation, CN II-XII grossly intact. ABSENT: motor sensory deficit Psychiatric exam: PRESENT: appropriate affect, normal mood. ABSENT: homicidal ideation, suicidal ideation Skin exam: PRESENT: dry, intact, warm. ABSENT: cyanosis, rash Results Laboratory Results: 10/27/16 05:39 10/27/16 05:39 10/26/16 10/27/16 10/27/16 16:50 05:39 05:39 WBC 5.3 RBC 3.12 L Hgb 8.3 L Hct 26.3 L MCV 84 MCH 26.7 L MCHC 31.7 L RDW 17.4 H Plt Count 133 L Sodium 141.5 142.4 Potassium 4.8 D 5.8 H D Chloride 98 100 Carbon Dioxide 27 D 25 Anion Gap 17 17 BUN 63 H D 78 H Creatinine 7.53 H 8.64 H Est GFR ( Amer) 7 L 6 L Est GFR (Non-Af Amer) 6 L 5 L Glucose 119 H 91 Calcium 7.3 L 7.0 L* Phosphorus 8.5 H Albumin Stool Occult Blood 10/27/16 10/27/16 05:39 10:52 WBC RBC Hgb Hct MCV MCH MCHC RDW Plt Count Sodium Potassium Chloride Carbon Dioxide Anion Gap BUN Creatinine Est GFR ( Amer) Est GFR (Non-Af Amer) Glucose Calcium Phosphorus Albumin 3.3 L Stool Occult Blood NEGATIVE Impressions: Chest X-Ray 10/25/16 23:22 IMPRESSION: Moderate airspace opacities of both lung charles ; differential diagnosis includes pulmonary edema, CHF, and/ or pneumonia. Assessment & Plan - Diagnosis (1) Hyperkalemia Is this a current diagnosis for this admission?: YesPlan: Secondary to noncompliance. The patient has been dialyzed. Repeat labs in the a.m. and follow. (2) Hypocalcemia Is this a current diagnosis for this admission?: YesPlan: Have given a dose of calcium gluconate today. Discussed the case with nephrology and will transition to every 12 hours 48 hours. (3) End stage renal disease Is this a current diagnosis for this admission?: YesPlan: Patient has been dialyzed. Will dialyze in the a.m. (4) Anemia in chronic kidney disease Is this a current diagnosis for this admission?: YesPlan: Will repeat CBC in the a.m. and follow. (5) Benzodiazepine dependence, continuous Is this a current diagnosis for this admission?: YesPlan: Resume home medications when necessary (6) Opiate dependence, continuous Is this a current diagnosis for this admission?: YesPlan: Resume home medications. (7) HIV (human immunodeficiency virus infection) Is this a current diagnosis for this admission?: YesPlan: The patient is treated by Dr. Godfrey at [facility]. The patient was diagnosed in 2015. According to the patient she is compliant with her medications and follow-up. - Time Time Spent with patient: on this visit including assessment, plan, physical examination, family meeting, and specialty collaboration, and patient education is 35 minutes. Time Spent with patient: 35 or more minutes Medications reviewed and adjusted accordingly: Yes Anticipated discharge: Home Within: within 48 hours
[2016-10-27] MEDS: TRAMADOL HCL 50 MG TABLET PO PRN (16:05)
[2016-10-27] MEDS: SEVELAMER HCL 400 MG TABLET PO SCH (16:05)
[2016-10-27] MEDS: MINOXIDIL 2.5 MG TABLET PO SCH (17:54)
[2016-10-27] MEDS: CALCIUM GLUCONATE 1000 MG/10 ML INJ IV SCH (21:28)
[2016-10-28] MEDS: GABAPENTIN 300 MG CAPSULE PO SCH ×3 (05:36→21:09)
[2016-10-28] MEDS: LABETALOL HCL 200 MG TABLET PO SCH ×3 (05:36→21:09)
[2016-10-28] MEDS: TRAMADOL HCL 50 MG TABLET PO PRN (05:38)
[2016-10-28] MEDS: CLONAZEPAM 1 MG TABLET PO PRN ×2 (06:30→18:03)
[2016-10-28 06:42] LABS: HEMATOCRIT 25.7 % (36.0-47.0); HEMOGLOBIN 8.1 g/dL (12.0-15.5); HGB HCT DIFFERENCE -1.4; MEAN CORPUSCULAR HEMOGLOBIN 26.7 pg (27.0-33.4); MEAN CORPUSCULAR HGB CONC 31.6 g/dL (32.0-36.0); MEAN CORPUSCULAR VOLUME 85 fl (80-97); RED BLOOD COUNT 3.03 10^6/uL (3.72-5.28); RED CELL DISTRIBUTION WIDTH 17.5 % (11.5-14.0); WHITE BLOOD COUNT 4.1 10^3/uL (4.0-10.5)
[2016-10-28 06:57] LABS: ANION GAP 18 (5-19); BLOOD UREA NITROGEN 97 mg/dL (7-20); CALCIUM 7.2 mg/dL (8.4-10.2); CARBON DIOXIDE 22 mmol/L (22-30); CHLORIDE 101 mmol/L (98-107); CREATININE RESULT 10.58 mg/dL (0.52-1.25); GLUCOSE 88 mg/dL (75-110); PHOSPHORUS 10.1 mg/dL (2.5-4.5); SODIUM 141.4 mmol/L (137-145)
[2016-10-28 07:15] LABS: POTASSIUM 6.6 mmol/L (3.6-5.0)
[2016-10-28] MEDS ORDERED: HEPARIN SOD (PORCINE) 1,000 UNIT/ML 10 ML VIAL IV PRN (09:49)
[2016-10-28 09:53] LABS: RBC FOR MANUAL RETICS 3.09 10^6/uL (3.72-5.28); RETICULOCYTE COUNT MANUAL 2.29 % (0.66-2.85)
[2016-10-28] MEDS ORDERED: EPOETIN ALFA INJ 20000 UNIT/1 ML VIAL (RENAL) IV PRN (09:54)
[2016-10-28 11:46] LABS: FOLATE > 20.00 ng/mL (>2.76)
[2016-10-28] MEDS: SEVELAMER HCL 400 MG TABLET PO SCH ×2 (12:25→18:03)
[2016-10-28] MEDS: EFAVIRENZ 600 MG TABLET PO SCH (12:28)
[2016-10-28] MEDS: MINOXIDIL 2.5 MG TABLET PO SCH ×2 (12:28→18:04)
[2016-10-28] MEDS: CALCITRIOL 0.25 MCG CAPSULE PO SCH ×2 (12:31→18:01)
[2016-10-28] MEDS: LEVETIRACETAM 500 MG TABLET PO SCH ×2 (12:31→21:09)
[2016-10-28] MEDS: CALCIUM CARBONATE 500 MG TAB.CHEW PO SCH ×2 (12:31→18:05)
[2016-10-28] MEDS: FOLIC ACID/VITAMIN B COMP W-C CAPSULE PO SCH (12:32)
[2016-10-28] MEDS: DOCUSATE SODIUM 100 MG CAPSULE PO SCH ×2 (12:32→18:06)
[2016-10-28] MEDS: CALCIUM GLUCONATE 1000 MG/10 ML INJ IV SCH ×2 (12:32→21:07)
--- NOTE | 2016-10-28 13:48 | PDOC PROGRESS REPORT ---
Subjective Progress Note for:: 10/28/16 Subjective:: The patient was seen earlier today on rounds while in hemodialysis. Overall the patient states that her symptoms have improved. The patient denies any nausea, vomiting, diarrhea, shortness of breath, dizziness, chest pain, heart palpitations, fevers, or chills. The patient has remained afebrile. Blood pressures have been in a good range. When prompted the patient voices no other concerns at this time. Patient's calcium remains depleted as well as her potassium is elevated. Review of systems: The rest of the review of systems is negative. Physical Exam Vital Signs: Temp Pulse Resp BP Pulse Ox 97.8 F 77 16 157/75 H 100 10/28/16 07:00 10/28/16 07:00 10/28/16 07:00 10/28/16 07:00 10/28/16 07:00 Intake & Output 10/26/16 10/27/16 10/28/16 23:59 23:59 23:59 Intake Total 5 1793 465 Output Total 3200 Balance -3195 1793 465 Weight 66.5 kg 70.1 kg General appearance: PRESENT: no acute distress, well-developed, well-nourished Head exam: PRESENT: atraumatic, normocephalic Eye exam: PRESENT: conjunctiva pink, EOMI, PERRLA. ABSENT: scleral icterus Ear exam: PRESENT: normal external ear exam Mouth exam: PRESENT: moist, tongue midline Neck exam: ABSENT: carotid bruit, JVD, lymphadenopathy, thyromegaly Respiratory exam: PRESENT: clear to auscultation dee. ABSENT: rales, rhonchi, wheezes Cardiovascular exam: PRESENT: RRR. ABSENT: diastolic murmur, rubs, systolic murmur Pulses: PRESENT: normal dorsalis pedis pul Vascular exam: PRESENT: normal capillary refill GI/Abdominal exam: PRESENT: normal bowel sounds, soft. ABSENT: distended, guarding, mass, organolmegaly, rebound, tenderness Rectal exam: PRESENT: deferred Extremities exam: PRESENT: full ROM, other - Feet are warm and dry. No right calf tenderness to compression; mild left calf tenderness to compression. Gentle manipulation of lower extremities fails to reveal any obvious evidence of injury or instability to knees hips or ankles.. ABSENT: calf tenderness, clubbing, pedal edema Neurological exam: PRESENT: alert, awake, oriented to person, oriented to place , oriented to time, oriented to situation, CN II-XII grossly intact. ABSENT: motor sensory deficit Psychiatric exam: PRESENT: appropriate affect, normal mood. ABSENT: homicidal ideation, suicidal ideation Skin exam: PRESENT: dry, intact, warm. ABSENT: cyanosis, rash Results Laboratory Results: 10/28/16 06:06 10/28/16 06:06 10/28/16 10/28/16 10/28/16 06:06 06:06 06:06 WBC 4.1 RBC 3.03 L Hgb 8.1 L Hct 25.7 L MCV 85 MCH 26.7 L MCHC 31.6 L RDW 17.5 H Plt Count 115 L Retic Count (auto) 2.29 Absolute Retic 0.071 Sodium 141.4 Potassium 6.6 H* Chloride 101 Carbon Dioxide 22 Anion Gap 18 BUN 97 H Creatinine 10.58 H Est GFR ( Amer) 5 L Est GFR (Non-Af Amer) 4 L Glucose 88 Calcium 7.2 L Phosphorus 10.1 H Magnesium 2.0 Iron TIBC % Saturation Ferritin Vitamin B12 Folate 10/28/16 06:06 WBC RBC Hgb Hct MCV MCH MCHC RDW Plt Count Retic Count (auto) Absolute Retic Sodium Potassium Chloride Carbon Dioxide Anion Gap BUN Creatinine Est GFR ( Amer) Est GFR (Non-Af Amer) Glucose Calcium Phosphorus Magnesium Iron 116 TIBC 147 L % Saturation 79 Ferritin 962.00 H Vitamin B12 520.0 Folate > 20.00 Impressions: Chest X-Ray 10/25/16 23:22 IMPRESSION: Moderate airspace opacities of both lung charles ; differential diagnosis includes pulmonary edema, CHF, and/ or pneumonia. Assessment & Plan - Diagnosis (1) Hyperkalemia Is this a current diagnosis for this admission?: YesPlan: This trended up again overnight. Adjustment has been made to the patient's potassium bath and dialysis. Will repeat chemistries after dialysis and follow. (2) Hypocalcemia Is this a current diagnosis for this admission?: YesPlan: Patient has been receiving 1 gram every 12 hours but still remains low but has made some improvement. Once again repeat chemistries after dialysis. (3) End stage renal disease Is this a current diagnosis for this admission?: YesPlan: The patient was dialyzed today. Do appreciate Dr. Moody is input with this. (4) Anemia in chronic kidney disease Is this a current diagnosis for this admission?: YesPlan: The patient's hemoglobin overall stable. (5) Benzodiazepine dependence, continuous Is this a current diagnosis for this admission?: YesPlan: Will continue home medications (6) Opiate dependence, continuous Is this a current diagnosis for this admission?: YesPlan: Resume home medications. (7) HIV (human immunodeficiency virus infection) Is this a current diagnosis for this admission?: YesPlan: The patient is treated by Dr. Godfrey at [facility]. The patient was diagnosed in 2016. According to the patient she is compliant with her medications and follow-up. Continue current medications. (8) Hypertension Qualifiers: Hypertension type: essential hypertension Qualified Code(s): I10 - Essential (primary) hypertension Is this a current diagnosis for this admission?: YesPlan: Will continue the patient's current medications. - Time Time Spent with patient: on this visit including assessment, plan, physical examination, and patient education is 25 minutes. Time Spent with patient: 25-34 minutes Medications reviewed and adjusted accordingly: Yes Anticipated discharge: Home Within: within 24 hours Disposition: The patient is a full code. Pending patient's symptomatology and diagnostic findings will reevaluate in the a.m.
[2016-10-28 14:22] LABS: ALBUMIN 3.7 g/dL (3.5-5.0); ANION GAP 14 (5-19); CALCIUM 7.9 mg/dL (8.4-10.2); CARBON DIOXIDE 29 mmol/L (22-30); CHLORIDE 97 mmol/L (98-107); CREATININE RESULT 5.88 mg/dL (0.52-1.25); GLUCOSE 129 mg/dL (75-110); SODIUM 140.4 mmol/L (137-145)
[2016-10-28 14:39] LABS: BLOOD UREA NITROGEN 45 mg/dL (7-20); POTASSIUM 4.4 mmol/L (3.6-5.0)
[2016-10-28] MEDS: HYDRALAZINE HCL 50 MG TABLET PO SCH (18:01)
[2016-10-28] MEDS: HYDROMORPHONE HCL 2 MG TABLET PO PRN (18:55)
--- NOTE | 2016-10-28 19:59 | EKG REPORT ---
SEVERITY:- BORDERLINE ECG - SINUS RHYTHM BORDERLINE PROLONGED QT INTERVAL : Confirmed by: Lizzy Santana MD 28-Oct-2016 19:58:58
[2016-10-29] MEDS: GABAPENTIN 300 MG CAPSULE PO SCH (06:15)
[2016-10-29] MEDS: CLONAZEPAM 1 MG TABLET PO PRN (06:16)
[2016-10-29 06:35] LABS: ANION GAP 15 (5-19); BLOOD UREA NITROGEN 61 mg/dL (7-20); CARBON DIOXIDE 29 mmol/L (22-30); CHLORIDE 97 mmol/L (98-107); CREATINE KINASE 52 U/L (30-135); CREATININE RESULT 7.19 mg/dL (0.52-1.25); GLUCOSE 120 mg/dL (75-110); LDH 570 U/L (313-618); POTASSIUM 5.2 mmol/L (3.6-5.0); SODIUM 140.9 mmol/L (137-145)
[2016-10-29] MEDS: HYDROMORPHONE HCL 2 MG TABLET PO PRN (07:00)
[2016-10-29] MEDS: HYDRALAZINE HCL 50 MG TABLET PO SCH (09:15)
[2016-10-29] MEDS: CALCITRIOL 0.25 MCG CAPSULE PO SCH (09:15)
[2016-10-29] MEDS: MINOXIDIL 2.5 MG TABLET PO SCH (09:16)
[2016-10-29] MEDS: LABETALOL HCL 200 MG TABLET PO SCH (09:16)
[2016-10-29] MEDS: FOLIC ACID/VITAMIN B COMP W-C CAPSULE PO SCH (09:16)
[2016-10-29] MEDS: SEVELAMER HCL 400 MG TABLET PO SCH (09:16)
[2016-10-29] MEDS: CALCIUM CARBONATE 500 MG TAB.CHEW PO SCH (09:18)
[2016-10-29] MEDS: EFAVIRENZ 600 MG TABLET PO SCH (09:18)
[2016-10-29] MEDS: LEVETIRACETAM 500 MG TABLET PO SCH (09:18)
[2016-10-29] MEDS: DOCUSATE SODIUM 100 MG CAPSULE PO SCH (09:19)
[2016-10-29] MEDS: CALCIUM GLUCONATE 1000 MG/10 ML INJ IV SCH (09:19)
[2016-10-29] MEDS ORDERED: [UNRECOGNIZED DRUG - OTHER] PO SCH (10:00)
[2016-10-29] MEDS ORDERED: LAMIVUDINE PO SCH (10:00)
[2016-10-29 10:11] VITALS: BP 133/68
[2016-10-29] MEDS ORDERED: EPIVIR 10 MG/ML PO SCH (22:00)
--- NOTE | 2016-10-30 16:49 | PDOC DISCHARGE SUMMARY ---
General - Admit/Disc Date/PCP Admission Date/Primary Care Provider: 10/26/16 08:33 Discharge Date: 10/29/16 - Discharge Diagnosis (1) Hyperkalemia Is this a current diagnosis for this admission?: Yes (2) Hypocalcemia Is this a current diagnosis for this admission?: Yes (3) End stage renal disease Is this a current diagnosis for this admission?: Yes (4) Anemia in chronic kidney disease Is this a current diagnosis for this admission?: Yes (5) Benzodiazepine dependence, continuous Is this a current diagnosis for this admission?: Yes (6) Opiate dependence, continuous Is this a current diagnosis for this admission?: Yes (7) HIV (human immunodeficiency virus infection) Is this a current diagnosis for this admission?: Yes (8) Hypertension Is this a current diagnosis for this admission?: Yes - Additional Information Resuscitation Status: Full Code Discharge Diet: Other (Comments) - Low potassium Discharge Activity: Activity As Tolerated Home Medications: B Complex & C No.20/Folic Acid [Triphrocaps Softgel] 1 mg PO DAILY 10/26/16 Clonazepam [Klonopin 2 mg Tablet] 2 mg PO BID 10/26/16 Efavirenz [Sustiva 600 mg Tablet] 600 mg PO DAILY 10/26/16 Furosemide [Lasix 80 mg Tablet] 80 mg PO DAILY 10/26/16 Hydromorphone HCl [Dilaudid 2 mg Tablet] 2 mg PO BID 10/26/16 Ipratropium/Albuterol Sulfate [Iprat-Albut 0.5-3(2.5) mg/3 ml] 3 ml IH Q6HP PRN 10/26/16 Labetalol HCl [Trandate] 300 mg PO BID 10/26/16 Lamivudine [Epivir Hbv] 25 mg PO DAILY 10/26/16 Levetiracetam [Keppra] 500 mg PO Q12 10/26/16 Minoxidil [Loniten 2.5 mg Tablet] 2.5 mg PO BID PRN 10/26/16 Hydralazine HCl 100 mg PO BID 10/28/16 Calcitriol [Rocaltrol 0.25 mcg Capsule] 0.5 mcg PO BID #60 capsule 10/29/16 Calcium Carbonate [Tums Chewable 500 mg Tab.chew] 1,000 mg PO BID #40 tab.chew 10/29/16 Gabapentin [Neurontin 300 mg Capsule] 300 mg PO Q8H #90 capsule 10/29/16 Pantoprazole Sodium [Protonix] 40 mg PO DAILY #30 tablet. 10/29/16 Sevelamer HCl [Renagel 400 mg Tablet] 800 mg PO MEALS #90 tablet 10/29/16 History of Present Illness Patient complains of: Left lower extremity edema History of Present Illness: HARVINDER LUZ is a 50 year old female with known end-stage renal disease, by her account on every Monday hemodialysis, but with her last hemodialysis session Monday of last week. The patient goes to hemodialysis at [facility] as she does not have an outpatient dialysis unit that has accepted her for routine hemodialysis. The patient is uncertain if it is the dialysis unit stay will not accept her or if there is not a brakes inspector that will accept her. The patient has a clinical social worker associated with the Hospital in [place] to help with displacement however the patient states that she has not heard from him in about a month. According to emergency room physician patient has a known history of noncompliance with her hemodialysis. Presents to the emergency room for evaluation of a 2 day history of slowly progressive left lower extremity swelling. No prior such episodes. Denies any history of DVT or pulmonary embolus. Mild associated shortness of breath and nausea but no vomiting fever or chills. No chest pain. Occasional dry cough, but nothing out of the ordinary, according to the patient. With formal Doppler study not available in the bi data modeler hours at our facility, the emergency room physician performed a bedside ultrasound, which revealed a completely noncompressible proximal left femoral vein, suggesting DVT and therefore the patient was started on heparin drip. The patient was referred the hospitalist remission and management. Hospital Course Hospital Course: The patient was admitted to [facility]. Dr. Moody with nephrology was consult and the patient underwent hemodialysis on Monday and Monday. The first day the patient had 3.3 liters removed and the patient's lower extremity edema did improve significantly after dialysis treatment. According to the patient she presents to [facility] on Monday and Monday to be evaluated for dialysis. The patient states on each of these days her labs were drawn and she is dialyzed accordingly. At times the patient is only dialyzed twice a week. According to the patient she has been unable to have successful placement in outpatient dialysis center. The patient stated that she did have a bed at [facility] however it was a hourly shift manager treatment and she was not interested in it. The patient states that her clinical social worker at the hospital has been working on getting her bed placement at a dialysis unit there however she is concerned that she has not heard from the clinical social worker and about a month. The patient agreed to return to [facility] for dialysis on Monday. A formal Doppler of bilateral lower extremities was unremarkable for evidence of DVT or SVT. The patient's anticoagulation was stopped. During the patient's stay was significant trouble with electrolyte derangement. The patient had significant hyperkalemia and dialysis past were adjusted accordingly. Patient also had persistent hypocalcemia which required multiple IV infusions. The patient's HIV medication was resumed during her stay. The patient is treated by Dr. Godfrey at [facility]. The patient was diagnosed in 2016. According to the patient she is compliant with her medications and follow-up. The patient and family are quite eager for discharge. Addendum: I was notified the day after discharge that the patient had not received her medications. I retrieve the information from right a bit indeed the patient's medications have been electronically sent to the pharmacy and the patient requested. Patient further went on to state that she did not have her Keppra and that should have been sent over. I still have the sheet of paper in which the patient's wrote the only medications that she needed refills on were protonix and gabapentin. Physical Exam Vital Signs: Temp Pulse Resp BP Pulse Ox 98.4 F 88 18 133/68 H 97 10/29/16 10:08 10/29/16 10:08 10/29/16 10:08 10/29/16 10:08 10/29/16 10:08 Intake & Output 10/28/16 10/29/16 10/30/16 23:59 23:59 23:59 Intake Total 1441 543 Output Total 3600 Balance -2159 543 Weight 70.1 kg 68.3 kg General appearance: PRESENT: no acute distress, well-developed, well-nourished Head exam: PRESENT: atraumatic, normocephalic Eye exam: PRESENT: conjunctiva pink, EOMI, PERRLA. ABSENT: scleral icterus Ear exam: PRESENT: normal external ear exam Mouth exam: PRESENT: moist, tongue midline Neck exam: ABSENT: carotid bruit, JVD, lymphadenopathy, thyromegaly Respiratory exam: PRESENT: clear to auscultation dee. ABSENT: rales, rhonchi, wheezes Cardiovascular exam: PRESENT: RRR. ABSENT: diastolic murmur, rubs, systolic murmur Pulses: PRESENT: normal dorsalis pedis pul Vascular exam: PRESENT: normal capillary refill GI/Abdominal exam: PRESENT: normal bowel sounds, soft. ABSENT: distended, guarding, mass, organolmegaly, rebound, tenderness Rectal exam: PRESENT: deferred Extremities exam: PRESENT: full ROM, other - Feet are warm and dry. No right calf tenderness to compression; mild left calf tenderness to compression. Gentle manipulation of lower extremities fails to reveal any obvious evidence of injury or instability to knees hips or ankles.. ABSENT: calf tenderness, clubbing, pedal edema Neurological exam: PRESENT: alert, awake, oriented to person, oriented to place , oriented to time, oriented to situation, CN II-XII grossly intact. ABSENT: motor sensory deficit Psychiatric exam: PRESENT: appropriate affect, normal mood. ABSENT: homicidal ideation, suicidal ideation Skin exam: PRESENT: dry, intact, warm. ABSENT: cyanosis, rash Results Laboratory Results: Labs- Last Values WBC 4.1 10^3/uL (4.0-10.5) 10/28/16 06:06 RBC 3.03 10^6/uL (3.72-5.28) L 10/28/16 06:06 Hgb 8.1 g/dL (12.0-15.5) L 10/28/16 06:06 Hct 25.7 % (36.0-47.0) L 10/28/16 06:06 MCV 85 fl (80-97) 10/28/16 06:06 MCH 26.7 pg (27.0-33.4) L 10/28/16 06:06 MCHC 31.6 g/dL (32.0-36.0) L 10/28/16 06:06 RDW 17.5 % (11.5-14.0) H 10/28/16 06:06 Plt Count 115 10^3/uL (150-450) L 10/28/16 06:06 Seg Neutrophils % 80.0 % (42-78) H 10/26/16 04:15 Lymphocytes % 13.2 % (13-45) 10/26/16 04:15 Monocytes % 1.5 % (3-13) L 10/26/16 04:15 Eosinophils % 4.5 % (0-6) 10/26/16 04:15 Basophils % 0.8 % (0-2) 10/26/16 04:15 Absolute Neutrophils 3.5 10^3/uL (1.7-8.2) 10/26/16 04:15 Absolute Lymphocytes 0.6 10^3/uL (0.5-4.7) 10/26/16 04:15 Absolute Monocytes 0.1 10^3/uL (0.1-1.4) 10/26/16 04:15 Absolute Eosinophils 0.2 10^3/uL (0.0-0.6) 10/26/16 04:15 Absolute Basophils 0.0 10^3/uL (0.0-0.2) 10/26/16 04:15 Retic Count (manual) 2.29 % (0.66-2.85) 10/28/16 06:06 Retic Count (auto) 2.29 % (0.66-2.85) 10/28/16 06:06 Absolute Retic 0.071 10^6/uL (0.028-0.122) 10/28/16 06:06 PT 15.9 SEC (11.4-15.4) H 10/26/16 00:56 INR 1.23 10/26/16 00:56 APTT 40.6 SEC (23.5-35.8) H 10/26/16 11:43 Sodium 140.9 mmol/L (137-145) 10/29/16 06:00 Potassium 5.2 mmol/L (3.6-5.0) H 10/29/16 06:00 Chloride 97 mmol/L (98-107) L 10/29/16 06:00 Carbon Dioxide 29 mmol/L (22-30) 10/29/16 06:00 Anion Gap 15 (5-19) 10/29/16 06:00 BUN 61 mg/dL (7-20) H 10/29/16 06:00 Creatinine 7.19 mg/dL (0.52-1.25) H 10/29/16 06:00 Est GFR ( Amer) 7 (>60) L 10/29/16 06:00 Est GFR (Non-Af Amer) 6 (>60) L 10/29/16 06:00 Glucose 120 mg/dL (75-110) H 10/29/16 06:00 Calcium 8.0 mg/dL (8.4-10.2) L 10/29/16 06:00 Phosphorus 10.1 mg/dL (2.5-4.5) H 10/28/16 06:06 Magnesium 2.0 mg/dL (1.6-2.3) 10/28/16 06:06 Iron 116 ug/dL (37-170) 10/28/16 06:06 TIBC 147 ug/dL (250-450) L 10/28/16 06:06 % Saturation 79 % 10/28/16 06:06 Transferrin 98 mg/dL (200-370) L 10/28/16 06:06 Ferritin 962.00 ng/mL (11.1-264.0) H 10/28/16 06:06 Total Bilirubin 1.6 mg/dL (0.2-1.3) H 10/26/16 08:26 Direct Bilirubin 0.0 mg/dL (0.0-0.3) 10/26/16 08:26 AST 32 U/L (14-36) 10/26/16 08:26 ALT 32 U/L (9-52) 10/26/16 08:26 Alkaline Phosphatase 191 U/L (38-126) H 10/26/16 08:26 Lactate Dehydrogenase 570 U/L (313-618) 10/29/16 06:00 Creatine Kinase 52 U/L (30-135) 10/29/16 06:00 CK-MB (CK-2) 1.44 ng/mL (<4.55) 10/26/16 00:56 Total Protein 7.1 g/dL (6.3-8.2) 10/26/16 08:26 Albumin 3.7 g/dL (3.5-5.0) 10/28/16 13:56 Vitamin B12 520.0 pg/mL (239-931) 10/28/16 06:06 Folate > 20.00 ng/mL (>2.76) 10/28/16 06:06 Stool Occult Blood NEGATIVE (NEGATIVE) 10/27/16 10:52 Hepatitis A IgM Ab Negative (Negative) 10/26/16 08:26 Hep Bs Antigen Negative (Negative) 10/26/16 08:26 Hep B Core IgM Ab Negative (Negative) 10/26/16 08:26 Hepatitis C Antibody <0.1 s/co ratio (0.0-0.9) 10/26/16 08:26 Impressions: Chest X-Ray 10/25/16 23:22 IMPRESSION: Moderate airspace opacities of both lung charles ; differential diagnosis includes pulmonary edema, CHF, and/ or pneumonia. Qualifiers PATEINT BEING DISCHARGED WITH ANY OF THE FOLLOWING DIAGNOSIS?: No Plan Discharge Plan: Patient will follow-up with dialysis at [facility] Monday morning. I expressed the patient that she needs repeat BMP, mag, phosphorus. I have placed an order for social work to help navigate this process. Time Spent: Greater than 30 Minutes
== END 2016-10-29 10:28 | disposition home or self-care (01) | DRG 699 ==
LOC: ER 22:16 → EH 10-26 03:51 → UNDOADMIN 10-26 03:51 → EH 10-26 08:33 → 3S 10-26 14:58
PROVIDERS: ADMIT Family Medicine; ATTEND Family Medicine
PROC: 5A1D60Z (ICD-10-PCS; principal; 2016-10-26)
PROC: 3E0F73Z Introduction of Anti-inflammatory into Respiratory Tract, Via Natural or Artificial Opening (ICD-10-PCS; 2016-10-26)
DX: E10.22 Type 1 diabetes mellitus with diabetic chronic kidney disease (principal); I12.0 Hypertensive chronic kidney disease with stage 5 chronic kidney disease or end stage renal disease; F11.20 Opioid dependence, uncomplicated; F13.20 Sedative, hypnotic or anxiolytic dependence, uncomplicated; E87.5 Hyperkalemia; N18.6 End stage renal disease; E83.51 Hypocalcemia; D63.1 Anemia in chronic kidney disease; I25.10 Atherosclerotic heart disease of native coronary artery without angina pectoris; F41.1 Generalized anxiety disorder; I25.2 Old myocardial infarction; I69.398 Other sequelae of cerebral infarction; J45.909 Unspecified asthma, uncomplicated; K21.9 Gastro-esophageal reflux disease without esophagitis; Z99.2 Dependence on renal dialysis; Z21 Asymptomatic human immunodeficiency virus [HIV] infection status; Z91.15 Patient's noncompliance with renal dialysis; Z95.5 Presence of coronary angioplasty implant and graft; Z90.710 Acquired absence of both cervix and uterus; Z88.6 Allergy status to analgesic agent; Z88.8 Allergy status to other drugs, medicaments and biological substances
CPT/HCPCS: 36415; 71010; 80048; 80053; 80074; 82040; 82272; 82550; 82553; 82607; 82728; 82746; 83540; 83550; 83615; 83735; 84100; 84466; 85025; 85027; 85045; 85610; 85730; 87340; 93005; 93010; 93971; 99285; G0257; J0610; J1170; J1644; J1815; J3490; Q4081

== ENCOUNTER 2016-11-07 08:30 | Emergency (ER) | payer MEDICARE, OTHER ==
--- NOTE | 2016-11-07 09:43 | ER Document Report ---
ED General - General Mode of Arrival: Ambulatory Information source: Patient TRAVEL OUTSIDE OF THE [place] IN LAST 30 DAYS: No - HPI Patient complains to provider of: Bilateral arm and leg pain Onset: This morning Associated symptoms: Other - see above <AURELIA COOK - Last Filed: 11/07/16 09:37> <LORRAINE STALEY - Last Filed: 11/07/16 16:09> - General Chief Complaint: Other Stated Complaint: WEAKNESS Notes: 50 year old female with history of renal failure presents to the ED complaining of bilateral arm and leg pain that started earlier this morning. Patient states that she is dialyzed on MWF in [place], but has been in [place] since Monday to visit her father. Patient was last dialyzed on Monday and states that she sometimes produces urine. Patient states that she is here to get her potassium checked. Patient denies being on any diuretics, but had some shortness of breath this morning. Patient was last seen in the ED on 10/26/2016 for lower extremity edema secondary to fluid accumulation. Patient was dialyzed and discharged during this visit. Currently, the patient states that her lower extremity swelling has significantly been reduced. (AURELIA COOK) - Related Data Allergies/Adverse Reactions: acetaminophen [From Percocet] Allergy (Verified 11/07/16 08:43) rash oxycodone HCl [From Percocet] Allergy (Verified 11/07/16 08:43) sulfamethoxazole [From Bactrim] Allergy (Verified 11/07/16 08:43) trimethoprim [From Bactrim] Allergy (Verified 11/07/16 08:43) alprazolam [From Xanax] Adverse Reaction (Verified 11/07/16 08:43) Hallucinations Past Medical History - General Information source: Patient - Social History Smoking Status: Never Smoker Chew tobacco use (# tins/day): No Frequency of alcohol use: None Drug Abuse: None Family History: Reviewed & Not Pertinent Patient has suicidal ideation: No Patient has homicidal ideation: No - Past Medical History Cardiac Medical History: Reports: Hx Coronary Artery Disease, Hx Heart Attack, Hx Hypertension Pulmonary Medical History: Reports: Hx Asthma Neurological Medical History: Reports: Hx Seizures - Last episode in 2014. Renal/ Medical History: Reports: Hx End Stage Renal Disease. Denies: Hx Peritoneal Dialysis GI Medical History: Reports: Hx Gastroesophageal Reflux Disease Infectious Medical History: Reports: Hx HIV Past Surgical History: Reports: Hx Coronary Stent, Hx Hysterectomy, Other - Hemodialysis catheter insertion. - Immunizations Immunizations up to date: No Hx Diphtheria, Pertussis, Tetanus Vaccination: No <AURELIA COOK - Last Filed: 11/07/16 09:37> Review of Systems - Review of Systems Constitutional: See HPI, Malaise EENT: No symptoms reported Cardiovascular: No symptoms reported Respiratory: See HPI, Short of breath Gastrointestinal: No symptoms reported Genitourinary: No symptoms reported Female Genitourinary: No symptoms reported Musculoskeletal: See HPI, Other - bilateral arm and leg pain Skin: No symptoms reported Hematologic/Lymphatic: No symptoms reported Neurological/Psychological: No symptoms reported -: Yes All other systems reviewed and negative <AURELIA COOK - Last Filed: 11/07/16 09:37> Physical Exam - General General appearance: Alert In distress: None - HEENT Head: Normocephalic, Atraumatic Eyes: Normal Extraocular movements intact: Yes Pupils: PERRL - Respiratory Respiratory status: No respiratory distress Breath sounds: Normal - Cardiovascular Rhythm: Regular Murmur: Yes - loud systolic murmur - Abdominal Inspection: Normal - Back Back: Normal - Extremities General upper extremity: Normal inspection, Normal ROM General lower extremity: Normal inspection, Edema - bilateral trace edema, Normal ROM - Neurological Neuro grossly intact: Yes - Psychological Associated symptoms: Normal affect, Normal mood - Skin Skin Temperature: Warm Skin Moisture: Dry Skin Color: Normal <AURELIA COOK - Last Filed: 11/07/16 09:37> <LORRAINE STALEY - Last Filed: 11/07/16 16:09> - Vital signs Vitals: Temp Pulse Resp BP Pulse Ox 97.8 F 87 20 145/59 H 98 11/07/16 08:37 11/07/16 08:37 11/07/16 08:37 11/07/16 08:37 11/07/16 08:37 (AURELIA COOK) (LORRAINE STALEY) Course - Laboratory Result Diagrams: 11/07/16 09:58 11/07/16 09:58 - EKG Interpretation by Nm EKG shows normal: Sinus rhythm, [place], Intervals, QRS Complexes. abnormal: ST-T Waves - T waves are little tall and peaked compared to 10/28/2016 Rate: Normal - 77 Rhythm: NSR P Waves: LAE <LORRAINE STALEY - Last Filed: 11/07/16 16:09> - Vital Signs Vital signs: Temp Pulse Resp BP Pulse Ox 97.8 F 87 20 145/59 H 98 11/07/16 08:37 11/07/16 08:37 11/07/16 08:37 11/07/16 08:37 11/07/16 08:37 (AURELIA COOK) (LORRAINE STALEY) - Laboratory Laboratory results interpreted by me: 11/07/16 11/07/16 09:58 09:58 WBC 3.2 L RBC 3.13 L Hgb 8.4 L Hct 26.7 L MCH 26.7 L MCHC 31.4 L RDW 18.4 H Plt Count 129 L Eosinophils % 7.7 H Potassium 7.1 H* Carbon Dioxide 19 L BUN 85 H Creatinine 12.80 H Est GFR ( Amer) 4 L Est GFR (Non-Af Amer) 3 L Calcium 7.2 L Phosphorus 11.3 H Alkaline Phosphatase 149 H (LORRAINE STALEY) Critical Care Note - Critical Care Note Total time excluding time spent on procedures (mins): 30 <LORRAINE STALEY - Last Filed: 11/07/16 16:09> Discharge <AURELIA COOK - Last Filed: 11/07/16 09:37> <LORRAINE STALEY - Last Filed: 11/07/16 16:09> - Discharge Clinical Impression: Hyperkalemia, Chronic renal failure, stage 5, Non-compliance Condition: Stable Disposition: HOME, SELF-CARE Additional Instructions: PLEASE RETURN TO YOUR HOME TOWN SO YOU DO NOT MISS DIALYSIS AGAIN. RETURN TO THE EMERGENCY ROOM IF ANY NEW OR WORSENING SYMPTOMS. Scribe Attestation: 11/07/16 12:46 I personally performed the services described in the documentation, reviewed and edited the documentation which was dictated to the scribe in my presence, and it accurately records my words and actions. (LORRAINE STALEY) Scribe Documentation - Scribe Written by [place]:: Dakota Farfan, 11/07/2016 0946 acting as scribe for :: Bakari <AURELIA COOK - Last Filed: 11/07/16 09:37>
[2016-11-07 10:14] LABS: ABSOLUTE EOSINOPHILS # (AUTO) 0.2 10^3/uL (0.0-0.6); ABSOLUTE LYMPHOCYTES (AUTO) 0.5 10^3/uL (0.5-4.7); ABSOLUTE MONOCYTES (AUTO) 0.3 10^3/uL (0.1-1.4); ABSOLUTE NEUT (AUTO) 2.1 10^3/uL (1.7-8.2); BASOPHILS % (AUTO) 1.6 % (0-2); EOSINOPHILS % (AUTO) 7.7 % (0-6); HEMATOCRIT 26.7 % (36.0-47.0); HEMOGLOBIN 8.4 g/dL (12.0-15.5); HGB HCT DIFFERENCE -1.5; LYMPHOCYTES % (AUTO) 15.8 % (13-45); MEAN CORPUSCULAR HEMOGLOBIN 26.7 pg (27.0-33.4); MEAN CORPUSCULAR HGB CONC 31.4 g/dL (32.0-36.0); MEAN CORPUSCULAR VOLUME 85 fl (80-97); MONOCYTES % (AUTO) 8.2 % (3-13); RED BLOOD COUNT 3.13 10^6/uL (3.72-5.28); RED CELL DISTRIBUTION WIDTH 18.4 % (11.5-14.0); SEGMENTED NEUTROPHILS % (AUTO) 66.7 % (42-78); WHITE BLOOD COUNT 3.2 10^3/uL (4.0-10.5)
[2016-11-07 10:33] LABS: ALANINE AMINOTRANSFERASE 21 U/L (9-52); ALBUMIN 3.7 g/dL (3.5-5.0); ALKALINE PHOSPHATASE 149 U/L (38-126); ANION GAP 19 (5-19); ASPARTATE AMINO TRANSFERASE 20 U/L (14-36); BILIRUBIN,TOTAL 0.5 mg/dL (0.2-1.3); BLOOD UREA NITROGEN 85 mg/dL (7-20); CALCIUM 7.2 mg/dL (8.4-10.2); CARBON DIOXIDE 19 mmol/L (22-30); CHLORIDE 105 mmol/L (98-107); GLUCOSE 98 mg/dL (75-110); MAGNESIUM 2.3 mg/dL (1.6-2.3); PHOSPHORUS 11.3 mg/dL (2.5-4.5); SODIUM 143.4 mmol/L (137-145); TOTAL PROTEIN 7.4 g/dL (6.3-8.2)
[2016-11-07 10:48] LABS: POTASSIUM 7.1 mmol/L (3.6-5.0)
[2016-11-07] MEDS ORDERED: CALCIUM GLUCONATE 1000 MG/10 ML INJ IV ONE (10:51)
[2016-11-07] MEDS ORDERED: ALBUTEROL SULFATE 0.083% NEB 2.5 MG/3 ML AMPUL NEB ONE (10:51)
[2016-11-07] MEDS ORDERED: SODIUM POLYSTYRENE SULFONATE 15 GM/60 ML PO ONE (10:52)
[2016-11-07] MEDS ORDERED: FUROSEMIDE INJ/PF 100 MG/10 ML SDV IV ONE (10:52)
[2016-11-07] MEDS ORDERED: HYDROMORPHONE HCL INJ/PF 2 MG/ML AMPULE IV ONE ×2 (12:47→18:35)
[2016-11-07] MEDS ORDERED: EPOETIN ALFA INJ 20000 UNIT/1 ML VIAL (RENAL) IV PRN (15:20)
[2016-11-07] MEDS ORDERED: HEPARIN SOD (PORCINE) 1,000 UNIT/ML 1 ML VIAL IV PRN (15:56)
[2016-11-07] MEDS ORDERED: HEPARIN SOD (PORCINE) 1,000 UNIT/ML 10 ML VIAL IV PRN (17:11)
--- NOTE | 2016-11-07 18:13 | EKG REPORT ---
SEVERITY:- ABNORMAL ECG - SINUS RHYTHM PROBABLE LEFT ATRIAL ABNORMALITY CONSIDER ANTEROSEPTAL INFARCT : Confirmed by: Ney Mireles MD 07-Nov-2016 18:12:38
[2016-11-07 18:56] VITALS: BP 127/88
--- NOTE | 2016-11-07 20:25 | PDOC CONSULTATION ---
Consultation Consult Date: 11/07/16 Attending physician:: LORRAINE VILLEGAS Consult reason:: I was asked by Dr. Cherry from the emergency room to see this patient for emergency dialysis due to severe hyperkalemia. History of Present Illness Patient complains of: Not feeling well and achy legs, arms and lower back. History of Present Illness: HARVINDER LUZ is a 50 year old female with history of end-stage renal disease on maintenance hemodialysis, coronary artery disease, hypertension, and anemia who presented to the emergency room with complaint of weakness. Patient said that she is having pain on her legs and bilateral arms as well as her lower back area. She said she is just not feeling well, has some short of breath and with slight chest pains. She has some nausea but no vomiting. She denies any fever nor chills. Patient tells us that she dialyzes at [facility] but could not tell as the dialysis center name. We could not get any records from her home dialysis unit. She said she dialyzes at [facility] on Mondays, Wednesdays and Fridays and her last dialysis was last Monday. She said she is here in [place] to visit her father. However when I talked to her she tells me that her is from here that's why she is here. She seems to be giving different stories to different staff including the nurses when I talked to them. She's been coming here for emergency dialysis periodically recently. When she came in today initial evaluation showed hyperkalemia with potassium of 7.1. Does I was called to supervise emergency dialysis treatment for this patient. I saw this patient earlier at around 12:50 PM during initiation of hemodialysis treatment. She has a PermCath for hemodialysis. She seems to be comfortable and tolerating dialysis at the start of the treatment. Past Medical History Cardiac Medical History: Reports: Coronary Artery Disease, Hypertension-primary , Myocardial Infarction Pulmonary Medical History: Reports: Asthma Neurological Medical History: Reports: Seizures - Last episode in 2014. Renal/ Medical History: Reports: End Stage Renal Disease GI Medical History: Reports: Gastroesophageal Reflux Disease Infectious Medical History: Reports: HIV Past Surgical History Past Surgical History: Reports: Coronary Stent, Hysterectomy, Other - Hemodialysis catheter insertion. Social History Information Source: Patient Lives with: Family Smoking Status: Never Smoker Frequency of Alcohol Use: None Hx Recreational Drug Use: No Drugs: None Hx Prescription Drug Abuse: No Family History Family History: Reviewed & Not Pertinent Parental Family History Reviewed: Yes Children Family History Reviewed: NA Sibling(s) Family History Reviewed.: NA Medication/Allergy Home Medications: B Complex & C No.20/Folic Acid [Triphrocaps Softgel] 1 mg PO DAILY 10/26/16 Clonazepam [Klonopin 2 mg Tablet] 2 mg PO BID 10/26/16 Efavirenz [Sustiva 600 mg Tablet] 600 mg PO DAILY 10/26/16 Furosemide [Lasix 80 mg Tablet] 80 mg PO DAILY 10/26/16 Hydromorphone HCl [Dilaudid 2 mg Tablet] 2 mg PO BID 10/26/16 Ipratropium/Albuterol Sulfate [Iprat-Albut 0.5-3(2.5) mg/3 ml] 3 ml IH Q6HP PRN 10/26/16 Labetalol HCl [Trandate] 300 mg PO BID 10/26/16 Lamivudine [Epivir Hbv] 25 mg PO DAILY 10/26/16 Minoxidil [Loniten 2.5 mg Tablet] 2.5 mg PO BID PRN 10/26/16 Hydralazine HCl 100 mg PO BID 10/28/16 Calcitriol [Rocaltrol 0.25 mcg Capsule] 0.5 mcg PO BID #60 capsule 10/29/16 Calcium Carbonate [Tums Chewable 500 mg Tab.chew] 1,000 mg PO BID #40 tab.chew 10/29/16 Gabapentin [Neurontin 300 mg Capsule] 300 mg PO Q8H #90 capsule 10/29/16 Pantoprazole Sodium [Protonix] 40 mg PO DAILY #30 tablet. 10/29/16 Sevelamer HCl [Renagel 400 mg Tablet] 800 mg PO MEALS #90 tablet 10/29/16 Levetiracetam [Keppra] 500 mg PO Q12 #60 tablet 10/30/16 Allergies/Adverse Reactions: acetaminophen [From Percocet] Allergy (Verified 11/07/16 08:43) rash oxycodone HCl [From Percocet] Allergy (Verified 11/07/16 08:43) sulfamethoxazole [From Bactrim] Allergy (Verified 11/07/16 08:43) trimethoprim [From Bactrim] Allergy (Verified 11/07/16 08:43) alprazolam [From Xanax] Adverse Reaction (Verified 11/07/16 08:43) Hallucinations Review of Systems All systems: reviewed and no additional remarkable complaints except as stated Review of Systems: Constitutional: ABSENT: chills, fatigue, fever(s), headache(s), weight gain, weight loss Eyes: ABSENT: visual disturbances Ears: ABSENT: hearing changes Cardiovascular: ABSENT: chest pain, edema, orthropnea, palpitations, admits shortness of breath Respiratory: ABSENT: cough, dyspnea, hemoptysis Gastrointestinal: ABSENT: abdominal pain, constipation, diarrhea, hematemesis, hematochezia; admits nausea, but no vomiting Genitourinary: ABSENT: dysuria, hematuria Musculoskeletal: ABSENT: joint swelling; admits pain over her legs, lower back and arms Integumentary: ABSENT: rash, wounds Neurological: ABSENT: abnormal gait, abnormal speech, confusion, dizziness, focal weakness, numbness, syncope Psychiatric: ABSENT: anxiety, depression Endocrine: ABSENT: cold intolerance, heat intolerance, polydipsia, polyuria Hematologic/Lymphatic: ABSENT: easy bleeding, easy bruising, lymphadenopathy Physical Exam Vital Signs: Temp Pulse Resp BP Pulse Ox 98.1 F 87 11 L 127/88 H 92 11/07/16 18:34 11/07/16 08:37 11/07/16 18:34 11/07/16 18:34 11/07/16 18:00 Intake & Output 11/06/16 11/07/16 11/08/16 06:59 06:59 06:59 Weight 61.5 kg Exam: General appearance: no acute distress, cooperative, well-developed, well- nourished Head exam: PRESENT: atraumatic, normocephalic Eye exam: PRESENT: Conjunctiva [place], EOMI, PERRLA. ABSENT: conjunctival injection, scleral icterus Mouth exam: PRESENT: moist, neck supple, tongue midline Neck exam: PRESENT: full ROM. ABSENT: carotid bruit, JVD, lymphadenopathy, thyromegaly Respiratory exam: PRESENT: clear to auscultation bilaterally. ABSENT: rales, rhonchi, stridor, wheezes Cardiovascular exam: PRESENT: RRR, +S1, +S2. Grade 2/6 systolic murmur Pulses: PRESENT: normal radial pulses, normal dorsalis pedis pulses GI/Abdominal exam: PRESENT: normal bowel sounds, soft. ABSENT: guarding, mass, tenderness Rectal exam: deferred Extremities exam: PRESENT: full ROM. She has mild bilateral PPD edema ABSENT: calf tenderness Musculoskeletal: PRESENT: full ROM. ABSENT: deformity Neurological exam: PRESENT: alert, Awake, Oriented to person, Oriented to place , Oriented to time, reflexes normal, CN II-XII grossly intact. ABSENT: motor sensory deficit Psychiatric exam: PRESENT: appropriate affect, normal mood. ABSENT: homicidal ideation, suicidal ideation Skin exam: PRESENT: intact, dry, warm. ABSENT: rash Results Laboratory Results: 11/07/16 09:58 11/07/16 09:58 11/07/16 11/07/16 09:58 09:58 WBC 3.2 L RBC 3.13 L Hgb 8.4 L Hct 26.7 L MCV 85 MCH 26.7 L MCHC 31.4 L RDW 18.4 H Plt Count 129 L Seg Neutrophils % 66.7 Lymphocytes % 15.8 Monocytes % 8.2 Eosinophils % 7.7 H Basophils % 1.6 Absolute Neutrophils 2.1 Absolute Lymphocytes 0.5 Absolute Monocytes 0.3 Absolute Eosinophils 0.2 Absolute Basophils 0.0 Sodium 143.4 Potassium 7.1 H* Chloride 105 Carbon Dioxide 19 L Anion Gap 19 BUN 85 H Creatinine 12.80 H Est GFR ( Amer) 4 L Est GFR (Non-Af Amer) 3 L Glucose 98 Calcium 7.2 L Phosphorus 11.3 H Magnesium 2.3 Total Bilirubin 0.5 AST 20 ALT 21 Alkaline Phosphatase 149 H Total Protein 7.4 Albumin 3.7 Assessment & Plan - Diagnosis (1) End stage renal disease Is this a current diagnosis for this admission?: YesPlan: We dialyzed the patient today in the emergency room on an emergency basis.We did dialysis today for 3 hours, using the patient's PermCath, with 0 potassium bath during the first hour followed by 1 potassium bath and the second hour and finally 2 potassium bath for the last hour, blood flow rate of 350 mL per minute , dialysate flow rate of 600 mL per minute, ultrafiltration at least 3 L or more as tolerated, no heparin and Procrit with 20,000 units during dialysis intravenously. Patient tolerated dialysis well without any problems or complications. The patient gets discharge, patient needs to go to her home dialysis unit to continue maintenance hemodialysis. (2) Anemia in chronic kidney disease Is this a current diagnosis for this admission?: YesPlan: Procrit given today. (3) Hyperkalemia Is this a current diagnosis for this admission?: YesPlan: Dialysis today as above. (4) Hypertension Qualifiers: Hypertension type: essential hypertension Qualified Code(s): I10 - Essential (primary) hypertension Is this a current diagnosis for this admission?: Yes - Notes Notes: Thank you for this consultation. Plan was discussed with Dr. Villegas earlier - Time Time Spent: Greater than 70 Minutes
== END 2016-11-07 18:53 | disposition home or self-care (01) ==
LOC: ER 08:30
DX: I12.0 Hypertensive chronic kidney disease with stage 5 chronic kidney disease or end stage renal disease (principal); N18.6 End stage renal disease; Z99.2 Dependence on renal dialysis; E87.5 Hyperkalemia; Z91.14 Patient's other noncompliance with medication regimen; R53.1 Weakness; M79.602 Pain in left arm; M79.601 Pain in right arm; M79.604 Pain in right leg; M79.605 Pain in left leg; R06.02 Shortness of breath; Z79.899 Other long term (current) drug therapy
CPT/HCPCS: 93005; 94640; 99291; 96374; 96375; 36415; 83735; 84100; 85025; 80053; 93010; G0257; J0610; J1940; J1644; Q4081; A9270

== ENCOUNTER 2017-02-01 19:54 | Emergency (ER) | payer MEDICARE, OTHER ==
[2017-02-01 20:15] VITALS: BP 193/95
--- NOTE | 2017-02-01 20:45 | ER Document Report ---
ED Fall - General Chief Complaint: Fall Injury Stated Complaint: FALL/RIGHT KNEE PAIN Time seen by provider: 20:44 Mode of Arrival: Wheelchair Information source: Patient Notes: 51-year-old female presents to ED for pain in her right knee. 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 She states she also fell on Monday and has been the abrasion that is on her right knee occurred. She is a dialysis patient and has dialysis tomorrow. TRAVEL OUTSIDE OF THE [place] IN LAST 30 DAYS: No - HPI Occurred: Other - Monday and today Where: Indoors Context: Tripped, Fell from standing Associated symptoms: None Location of injury/pain: Knee - Right knee Quality of pain: Sharp Severity: Severe Pain Level: 5 - Related data Allergies/Adverse Reactions: acetaminophen [From Percocet] Allergy (Verified 11/07/16 08:43) rash oxycodone HCl [From Percocet] Allergy (Verified 11/07/16 08:43) sulfamethoxazole [From Bactrim] Allergy (Verified 11/07/16 08:43) trimethoprim [From Bactrim] Allergy (Verified 11/07/16 08:43) alprazolam [From Xanax] Adverse Reaction (Verified 11/07/16 08:43) Hallucinations Past Medical History - General Information source: Patient - Social History Smoking Status: Never Smoker Cigarette use (# per day): No Chew tobacco use (# tins/day): No Smoking Education Provided: No Frequency of alcohol use: None Drug Abuse: None Lives with: Family Family History: Reviewed & Not Pertinent Patient has suicidal ideation: No Patient has homicidal ideation: No - Past Medical History Cardiac Medical History: Reports: Hx Hypertension Pulmonary Medical History: Reports: Hx Asthma Neurological Medical History: Reports: Hx Cerebrovascular Accident, Hx Seizures - Last episode in 2014. Endocrine Medical History: Reports: None Renal/ Medical History: Reports: Hx End Stage Renal Disease Malignancy Medical History: Reports: None GI Medical History: Reports: Hx Gastroesophageal Reflux Disease Musculoskeltal Medical History: Reports Hx Arthritis, Reports Hx Musculoskeletal Deformity Skin Medical History: Reports None Psychiatric Medical History: Reports: None Traumatic Medical History: Reports: None Infectious Medical History: Reports: Hx HIV Past Surgical History: Reports: Hx Cardiac Catheterization, Hx Hysterectomy, Hx Valve Replacement - Dialysis catheter - Immunizations Immunizations up to date: No Hx Diphtheria, Pertussis, Tetanus Vaccination: No Review of Systems - Review of Systems Constitutional: No symptoms reported EENT: No symptoms reported Cardiovascular: No symptoms reported Respiratory: No symptoms reported Gastrointestinal: No symptoms reported Genitourinary: No symptoms reported Female Genitourinary: No symptoms reported Musculoskeletal: Other - Right knee pain and swelling Skin: Other - Abrasion to the right knee Hematologic/Lymphatic: No symptoms reported Neurological/Psychological: No symptoms reported -: Yes All other systems reviewed and negative Physical Exam - Vital signs Vitals: Temp Pulse Resp BP Pulse Ox 98.4 F 81 18 193/95 H 95 02/01/17 20:10 02/01/17 20:10 02/01/17 20:10 02/01/17 20:10 02/01/17 20:10 Interpretation: Normal - General General appearance: Appears well, Alert - HEENT Head: Normocephalic, Atraumatic Eyes: Normal Pupils: PERRL - Respiratory Respiratory status: No respiratory distress Chest status: Nontender Breath sounds: Normal Chest palpation: Normal - Cardiovascular Rhythm: Regular Heart sounds: Normal auscultation Murmur: No - Abdominal Inspection: Normal Distension: No distension Bowel sounds: Normal Tenderness: Nontender Organomegaly: No organomegaly - Back Back: Normal, Nontender - Extremities General upper extremity: Normal inspection, Nontender, Normal color, Normal ROM , Normal temperature General lower extremity: Normal inspection, Nontender, Normal color, Normal ROM , Normal temperature, Normal weight bearing. No: Philomena's sign Knee: Tender, Abrasion - Right knee, Ecchymosis, Pain with ROM, Other - Soft tissue swelling to the right knee. No: Deformity, Dislocation, Drawer's test instability, Instability, Joint effusion, Laceration, Laxity with valgus stress , Laxity with varus stress, Patellar tendon intact, Popliteal fossa tender - Neurological Neuro grossly intact: Yes Cognition: Normal Orientation: AAOx4 Celestino Coma Scale Eye Opening: Spontaneous Celestino Coma Scale Verbal: Oriented Celestino Coma Scale Motor: Obeys Commands Celestino Coma Scale Total: 15 Speech: Normal Motor strength normal: LUE, RUE, LLE, RLE Sensory: Normal - Psychological Associated symptoms: Normal affect, Normal mood - Skin Skin Temperature: Warm Skin Moisture: Dry Skin Color: Normal Location of irregularity: Extremities - Abrasion to the right knee Course - Re-evaluation Re-evalutation: 02/01/17 22:05 X-rays and CD of x-ray to the right knee given to patient to follow-up with her doctor in [place]. Ice and Tulio wrap applied to the right knee and a knee immobilizer and patient instructed in use of crutches. Patient to follow-up with her primary doctor when she goes home tomorrow. She lives in [place] she states. - Vital Signs Vital signs: Temp Pulse Resp BP Pulse Ox 98.4 F 81 18 193/95 H 95 02/01/17 20:10 02/01/17 20:10 02/01/17 20:10 02/01/17 20:10 02/01/17 20:10 - Diagnostic Test Radiology reviewed: Image reviewed, Reports reviewed Procedures - Immobilization Right Knee Time completed: 22:06 Pre-Proc Neuro Vasc Exam: Normal Immobilizer type: Tulio wrap, Crutches, Knee immobilizer Performed by: PCT Post-Proc Neuro Vasc Exam: Normal Alignment checked and good: Yes Discharge - Discharge Clinical Impression: Abrasion, right knee, initial encounter Qualifiers: Encounter type: initial encounter Qualified Code(s): S80.211A - Abrasion, right knee, initial encounter Right knee injury Qualifiers: Encounter type: initial encounter Qualified Code(s): S89.91XA - Unspecified injury of right lower leg, initial encounter Condition: Good Disposition: HOME, SELF-CARE Additional Instructions: SUSPECTED INTERNAL KNEE INJURY: The examiner of your injured knee suspects an internal injury to the cartilage or internal ligaments. This must be further investigated by an orthopedic nurse. The knee should be protected, ice packed, and elevated while awaiting your follow-up exam by the orthopedist. If there is severe swelling, severe pain, or any new symptoms while awaiting your exam, you should call the orthopedist. (If he/she is unavailable, call us or return for re-examination.) KNEE IMMOBILIZING SPLINT: The knee immobilizing splint will protect the injury while healing begins. This type of splint does not allow the knee to bend at all. No running or sports will be possible. If the splint allows painfree walking, it's giving adequate protection. If there is still significant pain, crutches may be needed as well. Don't do anything that hurts. Adjusted the splint, if necessary. The stiffeners on the sides are attached with Velcro, so they can be easily moved to adjust for thigh and calf size. If you need help with these adjustments, come back. You will lose muscle strength in the thigh while using this splint. The doctor will advise you if it's safe to do isometric knee exercises while you use it. TULIO WRAP: A compression dressing (tulio wrap) has been placed. This helps hold the area still. It limits swelling and internal bleeding. The wrap should be comfortably snug -- not tight. You should feel a sense of pressure, but not severe pain under the wrap. Unless the physician tells you otherwise, you can adjust the wrap for comfort. If the wrap causes symptoms suggesting it's too tight -- uncomfortable pressure, swelling or discoloration beyond the wrap, numbness, or severe pain - - you must loosen the wrap. If these symptoms don't resolve promptly, return for re-evaluation. USE OF CRUTCHES: The doctor has recommended that you not bear weight at this time. You will need to use crutches. Adjust the crutches so the tops come to about two inches under the armpit while you are standing upright. Use your hands -- not your armpits -- to support your weight. To get into a chair, support yourself with one crutch on the injured side. Hold the chair with the other hand, then lower yourself while putting all your weight on the good leg. Going up stairs is `good leg up, step up, then bring up crutches and bad leg.' Down stairs is `bad leg and crutches down, then bring good leg down.' If you develop numbness or swelling in an arm or hand, you are using the crutches incorrectly. Return if you are having any problems with the crutches. ICE & ELEVATION: Apply ice packs frequently against the painful area. Many different schedules are recommended, such as "20 minutes on, 20 minutes off" or "one hour ice, two hours rest." If you need to work, you may need to go longer between ice treatments. You should plan to have the area ice packed AT LEAST one- fourth of the time. The ice should be applied over the wrap, tape, or splint, or over a layer of cloth -- not directly against the skin. Some ice bags have a built-in cloth and can be put directly on the skin. Your injured part should be elevated as much as possible over the next 48 hours. Try to keep the injury above the level of the heart. Avoid use of the injured area. Elevation and rest will decrease the swelling. Oral Narcotic Medication You have been given a dilaudid for pain control. This medication is a narcotic. It's best taken with food, as nausea can result if taken on an empty stomach. Don't operate machinery or drive within six hours of taking this medication. Do not combine this medicine with alcohol, or with any medication which can cause sedation (such as cold tablets or sleeping pills) unless you get permission from the physician. Narcotics tend to cause constipation. If possible, drink plenty of fluids and eat a diet high in fiber and fruits. FOLLOW-UP CARE: If you have been referred to a physician for follow-up care, call the physician s office for an appointment as you were instructed or within the next two days. If you experience worsening or a significant change in your symptoms, notify the physician immediately or return to the Emergency Department at any time for re-evaluation. Please call your pain control doctor in the morning to schedule a follow-up appointment as you state you're out of your Dilaudid. I will give you one Dilaudid while you're here in the emergency room but you need to follow up with your pain management to get more. Forms: Elevated Blood Pressure
[2017-02-01] MEDS ORDERED: HYDROMORPHONE HCL 2 MG TABLET PO ONE (22:10)
== END 2017-02-01 22:20 | disposition home or self-care (01) ==
LOC: ER 19:54
DX: S80.01XA Contusion of right knee, initial encounter (principal); W01.0XXA Fall on same level from slipping, tripping and stumbling without subsequent striking against object, initial encounter; J45.909 Unspecified asthma, uncomplicated; I12.0 Hypertensive chronic kidney disease with stage 5 chronic kidney disease or end stage renal disease; N18.6 End stage renal disease; Z99.2 Dependence on renal dialysis; Z88.5 Allergy status to narcotic agent; Z88.1 Allergy status to other antibiotic agents; Z86.73 Personal history of transient ischemic attack (TIA), and cerebral infarction without residual deficits; Z21 Asymptomatic human immunodeficiency virus [HIV] infection status
CPT/HCPCS: 99283; 73564; L1830

== ENCOUNTER 2017-06-11 14:57 | Emergency (ER) | payer MEDICARE, OTHER ==
--- NOTE | 2017-06-11 15:20 | ER Document Report ---
ED Medical Screen (RME) - General Chief Complaint: Fall Stated Complaint: HEAD INJURY Time Seen by Provider: 06/11/17 15:07 Notes: 51-year-old female dialysis patient who lives in [place] but visits [place] regularly so she is a patient in this ER regularly. She dialyzed on Monday. She reports being in the kitchen this morning when she lost her balance and fell backwards striking the back of her head. She complains of pain to the back of her head, her upper back and lower back, and her legs. There was no loss of consciousness. She has significant amount of we have added to her hair so there is a lot of padding over her occipital area. She also reports she thinks she is anemic because she has been shaking for 4 days and feels like her hemoglobin is low. She states they do not check her blood levels at dialysis very often. She is requesting Dilaudid which is what she states she usually gets when she has pain. I have greeted and performed a rapid initial assessment of this patient. A comprehensive ED assessment and evaluation of the patient, analysis of test results and completion of the medical decision making process will be conducted by additional ED providers. TRAVEL OUTSIDE OF THE [place] IN LAST 30 DAYS: No - Related Data Allergies/Adverse Reactions: acetaminophen [From Percocet] Allergy (Verified 06/11/17 15:04) rash oxycodone HCl [From Percocet] Allergy (Verified 06/11/17 15:04) sulfamethoxazole [From Bactrim] Allergy (Verified 06/11/17 15:04) trimethoprim [From Bactrim] Allergy (Verified 06/11/17 15:04) alprazolam [From Xanax] Adverse Reaction (Verified 06/11/17 15:04) Hallucinations Past Medical History - Social History Chew tobacco use (# tins/day): Yes Frequency of alcohol use: None Drug Abuse: None - Past Medical History Cardiac Medical History: Reports: Hx Coronary Artery Disease, Hx Heart Attack, Hx Hypertension Denies: Hx DVT, Hx Hypercholesterolemia, Hx Pulmonary Embolism Pulmonary Medical History: Reports: Hx Asthma Neurological Medical History: Reports: Hx Cerebrovascular Accident, Hx Seizures - Last episode in 2014. Endocrine Medical History: Denies: Hx Diabetes Mellitus Type 1, Hx Diabetes Mellitus Type 2, Hx Hyperthyroidism, Hx Hypothyroidism Renal/ Medical History: Reports: Hx End Stage Renal Disease. Denies: Hx Peritoneal Dialysis GI Medical History: Reports: Hx Gastroesophageal Reflux Disease. Denies: Hx Cirrhosis, Hx Hepatitis Musculoskeltal Medical History: Reports Hx Arthritis, Reports Hx Musculoskeletal Deformity Skin Medical History: Denies Hx Eczema, Denies Hx Psoriasis Psychiatric Medical History: Denies: Hx Depression Infectious Medical History: Reports: Hx HIV. Denies: Hx Hepatitis Past Surgical History: Reports: Hx Cardiac Catheterization, Hx Coronary Stent, Hx Hysterectomy, Hx Valve Replacement - Dialysis catheter, Other - Hemodialysis catheter insertion. - Immunizations Immunizations up to date: No Hx Diphtheria, Pertussis, Tetanus Vaccination: Yes Physical Exam - Vital signs Vitals: Temp Pulse Resp BP Pulse Ox 98.4 F 83 20 168/83 H 97 06/11/17 15:05 06/11/17 15:05 06/11/17 15:05 06/11/17 15:05 06/11/17 15:05 Course - Vital Signs Vital signs: Temp Pulse Resp BP Pulse Ox 98.4 F 83 20 168/83 H 97 06/11/17 15:05 06/11/17 15:05 06/11/17 15:05 06/11/17 15:05 06/11/17 15:05
--- NOTE | 2017-06-11 15:46 | ER Document Report ---
ED General - General Chief Complaint: Fall Stated Complaint: HEAD INJURY Time Seen by Provider: 06/11/17 15:07 Mode of Arrival: Wheelchair Information source: Patient Notes: This is a 51-year-old female with a history of end-stage renal disease (on hemodialysis: Tuesdays, , Saturdays), last dialyzed yesterday. Patient has a history of falls and does have any unsteady gait and ambulates with a Rollator. Patient is brought in to the emergency room by family today because of pain to the back after falling. The patient's family member states that patient was at the sink washing dishes and grabbed for a towel and lost her footing fell back. Patient does state she hit her head. She denies loss of consciousness. TRAVEL OUTSIDE OF THE [place] IN LAST 30 DAYS: No - HPI Onset: Just prior to arrival Onset/Duration: Sudden Quality of pain: Dull Severity: Moderate Pain Level: 2 Associated symptoms: denies: Chest pain, Fever, Shortness of breath Exacerbated by: Movement Relieved by: Denies Similar symptoms previously: Yes Recently seen / treated by doctor: Yes - Related Data Allergies/Adverse Reactions: acetaminophen [From Percocet] Allergy (Verified 06/11/17 15:04) rash oxycodone HCl [From Percocet] Allergy (Verified 06/11/17 15:04) sulfamethoxazole [From Bactrim] Allergy (Verified 06/11/17 15:04) trimethoprim [From Bactrim] Allergy (Verified 06/11/17 15:04) alprazolam [From Xanax] Adverse Reaction (Verified 06/11/17 15:04) Hallucinations Past Medical History - General Information source: Patient - Social History Smoking Status: Never Smoker Cigarette use (# per day): No Chew tobacco use (# tins/day): Yes Frequency of alcohol use: None Drug Abuse: None Lives with: Family Family History: Reviewed & Not Pertinent Patient has suicidal ideation: No Patient has homicidal ideation: No - Past Medical History Cardiac Medical History: Reports: Hx Coronary Artery Disease, Hx Heart Attack, Hx Hypertension Denies: Hx DVT, Hx Hypercholesterolemia, Hx Pulmonary Embolism Pulmonary Medical History: Reports: Hx Asthma Neurological Medical History: Reports: Hx Cerebrovascular Accident, Hx Seizures - Last episode in 2014. Endocrine Medical History: Denies: Hx Diabetes Mellitus Type 1, Hx Diabetes Mellitus Type 2, Hx Hyperthyroidism, Hx Hypothyroidism Renal/ Medical History: Reports: Hx End Stage Renal Disease. Denies: Hx Peritoneal Dialysis GI Medical History: Reports: Hx Gastroesophageal Reflux Disease. Denies: Hx Cirrhosis, Hx Hepatitis Musculoskeltal Medical History: Reports Hx Arthritis, Reports Hx Musculoskeletal Deformity Skin Medical History: Denies Hx Eczema, Denies Hx Psoriasis Psychiatric Medical History: Denies: Hx Depression Infectious Medical History: Reports: Hx HIV. Denies: Hx Hepatitis Past Surgical History: Reports: Hx Cardiac Catheterization, Hx Coronary Stent, Hx Hysterectomy, Hx Valve Replacement - Dialysis catheter, Other - Hemodialysis catheter insertion. - Immunizations Immunizations up to date: No Hx Diphtheria, Pertussis, Tetanus Vaccination: Yes Review of Systems - Review of Systems Constitutional: denies: Chills, Fever EENT: No symptoms reported Cardiovascular: No symptoms reported Respiratory: No symptoms reported Gastrointestinal: No symptoms reported Genitourinary: No symptoms reported Female Genitourinary: No symptoms reported Musculoskeletal: See HPI Skin: No symptoms reported Hematologic/Lymphatic: No symptoms reported Neurological/Psychological: See HPI Physical Exam - Vital signs Vitals: Temp Pulse Resp BP Pulse Ox 98.4 F 83 20 168/83 H 97 06/11/17 15:05 06/11/17 15:05 06/11/17 15:05 06/11/17 15:05 06/11/17 15:05 Notes: Physical exam: GENERAL: 51-year-old female, alert and oriented 3, no acute distress HEAD: Atraumatic, normocephalic. EYES: Pupils equal round and reactive to light, extraocular movements intact, sclera anicteric, conjunctiva are normal. ENT: nares patent, oropharynx clear without exudates. Moist mucous membranes. NECK: Normal range of motion, supple without obvious mass LUNGS: Breath sounds clear to auscultation bilaterally and equal. No wheezes rales or rhonchi. HEART: Regular rate and rhythm . Patient does have a 2/6 systolic murmur at the left lateral sternal border. ABDOMEN: Soft, normoactive bowel sounds. No tenderness to palpation. No guarding, no rebound. No masses appreciated. EXTREMITIES: Normal range of motion, no pitting or edema. No clubbing or cyanosis. NEUROLOGICAL: Cranial nerves II through XII grossly intact. She does answer questions, moving all extremities. PSYCH: Normal mood, normal affect. SKIN: Warm, Dry, normal turgor, no rashes or lesions noted. Course - Vital Signs Vital signs: Temp Pulse Resp BP Pulse Ox 97.9 F 86 16 180/88 H 100 06/11/17 17:45 06/11/17 17:45 06/11/17 17:45 06/11/17 17:45 06/11/17 17:45 - Laboratory Result Diagrams: 06/11/17 15:25 06/11/17 15:25 Laboratory results interpreted by me: 06/11/17 06/11/17 15:25 15:25 WBC 3.0 L Hgb 11.9 L MCV 79 L MCH 25.6 L RDW 23.6 H Plt Count 129 L Monocytes % (Manual) 14 H Eosinophils % (Manual) 11 H Abs Neuts (Manual) 1.5 L Chloride 97 L BUN 40 H Creatinine 6.09 H Est GFR ( Amer) 9 L Est GFR (Non-Af Amer) 7 L Glucose 111 H Calcium 10.4 H Direct Bilirubin 0.5 H - Diagnostic Test Radiology reviewed: Image reviewed, Reports reviewed - CT of the head shows no acute intracranial bleed or fracture. T-spine series shows no acute fracture Discharge - Discharge Clinical Impression: Contusion head status post fall, Back pain status post fall Condition: Stable Disposition: HOME, SELF-CARE Additional Instructions: [facility]. The examination and treatment you have received in the Emergency Department today has been rendered on an emergency basis only and is not intended to be a substitute for complete medical care. You should contact your follow-up physician as it is important that he or she examine you for any new or remaining problems. If given a copy of any lab tests or radiology reports, please bring them with you when you see your physician. If your problem worsens or new symptoms appear and you are unable to arrange prompt follow-up care, return to the Emergency Department. Specific signs to look out for: Worsening pain, worsening confusion Any other instructions: Take the pain medicine as prescribed. Take Zofran for nausea. Follow-up with your doctor in [place]: I recommend you get a referral for physical therapy evaluation. The pain medicine you're taking prescribed as a narcotic. There are several important things you should know about this medicine: 1. Taking narcotics for too long can lead to physical and mental dependence. Take this medicine only if really needed and in the lowest quantity to achieve pain relief. 2. Do not drink alcohol while on this medicine. Alcohol interacts with narcotics and the combination can be dangerous. 3. Do not drive or operate machinery while on this medicine. 4. Narcotics do cause constipation, so drink plenty of fluids and daily stool softeners. Prescriptions: Hydromorphone HCl [Dilaudid 2 Mg Tablet] 2 mg PO Q6H PRN #20 tablet PRN Reason: for pain Ondansetron HCl [Zofran 4 mg Tablet] 1 - 2 tab PO Q4H PRN #10 tablet PRN Reason:
[2017-06-11 16:08] LABS: ALANINE AMINOTRANSFERASE 19 U/L (9-52); ALKALINE PHOSPHATASE 88 U/L (38-126); ANION GAP 14 (5-19); ASPARTATE AMINO TRANSFERASE 24 U/L (14-36); BILIRUBIN,DIRECT 0.5 mg/dL (0.0-0.4); BILIRUBIN,TOTAL 0.5 mg/dL (0.2-1.3); BLOOD UREA NITROGEN 40 mg/dL (7-20); CALCIUM 10.4 mg/dL (8.4-10.2); CARBON DIOXIDE 26 mmol/L (22-30); CHLORIDE 97 mmol/L (98-107); CREATININE RESULT 6.09 mg/dL (0.52-1.25); GLUCOSE 111 mg/dL (75-110); POTASSIUM 4.4 mmol/L (3.6-5.0); TOTAL PROTEIN 7.4 g/dL (6.3-8.2)
[2017-06-11 16:10] LABS: HEMATOCRIT 36.6 % (36.0-47.0); HEMOGLOBIN 11.9 g/dL (12.0-15.5); HGB HCT DIFFERENCE -0.9; MEAN CORPUSCULAR HEMOGLOBIN 25.6 pg (27.0-33.4); MEAN CORPUSCULAR HGB CONC 32.5 g/dL (32.0-36.0); MEAN CORPUSCULAR VOLUME 79 fl (80-97); RED BLOOD COUNT 4.65 10^6/uL (3.72-5.28); RED CELL DISTRIBUTION WIDTH 23.6 % (11.5-14.0)
[2017-06-11 16:14] LABS: BASOPHILS % (MANUAL) 1 % (0-2); EOSINOPHILS % (MANUAL) 11 % (0-6); LYMPHOCYTES % (MANUAL) 24 % (13-45); NUCLEATED RED BLOOD CELLS 2 /100 WBC (0); TOTAL CELLS COUNTED 100
--- NOTE | 2017-06-11 16:15 | RADIOLOGY REPORT (SQ) ---
EXAM DESCRIPTION: CT HEAD WITHOUT COMPLETED DATE/TIME: 06/11/2017 4:01 pm REASON FOR STUDY: fall COMPARISON: 11/24/2015 TECHNIQUE: Axial images acquired through the brain without intravenous contrast. Images reviewed wi th bone, brain and subdural windows. Images stored on PACS. All CT scanners at this facility use dose modulation, iterative reconstruction, and/or weight based d osing when appropriate to reduce radiation dose to as low as reasonably achievable (ALARA). [facility]: Dose Right [facility]: CareDose [facility]: Dose Right [facility]: Teradose 4D [facility]: [employer] RADIATION DOSE: Up-to-date CT equipment and radiation dose reduction techniques were employed. CTDIv ol: 64.6 mGy. DLP: 1292 mGy-cm. mGy. LIMITATIONS: None. FINDINGS: VENTRICLES: Normal size and contour. CEREBRUM: No masses. No hemorrhage. No midline shift. No evidence for acute infarction. Normal gra y/white matter differentiation. No areas of low density in the white matter. CEREBELLUM: No masses. No hemorrhage. No alteration of density. No evidence for acute infarction. EXTRAAXIAL SPACES: No fluid collections. No masses. ORBITS AND GLOBE: No intra- or extraconal masses. Normal contour of globe without masses. CALVARIUM: No fracture. PARANASAL SINUSES: No fluid or mucosal thickening. SOFT TISSUES: Mild left parietal soft tissue swelling. OTHER: No other significant finding. IMPRESSION: No acute intracranial findings. Mild left parietal soft tissue swelling. COMMENT: Quality ID # [id number]: Final reports with documentation of one or more dose reduction techniques (e.g., Automated exposure control, adjustment of the mA and/or kV according to patient size, use of iterative reconstruction technique) TECHNICAL DOCUMENTATION: JOB ID: [id number]- All Rights Reserved
[2017-06-11 16:16] LABS: ANISOCYTOSIS 2+; HYPOCHROMASIA 1+; MICROCYTOSIS 1+; OVALOCYTES SLIGHT; POIKILOCYTOSIS 1+; POLYCHROMASIA SLIGHT; TARGET CELLS SLIGHT; TEAR DROP CELLS SLIGHT
--- NOTE | 2017-06-11 16:29 | RADIOLOGY REPORT (SQ) ---
EXAM DESCRIPTION: T SPINE AP/LAT COMPLETED DATE/TIME: 06/11/2017 4:17 pm REASON FOR STUDY: mid back pain after fall COMPARISON: None. NUMBER OF VIEWS: Two views. TECHNIQUE: AP and lateral radiographic images acquired of the thoracic spine. LIMITATIONS: None. FINDINGS: MINERALIZATION: Normal. ALIGNMENT: Normal. No scoliosis. VERTEBRAE: No fracture or bone lesion. Maintained height, normal segmentation. DISCS: No significant loss of height or significant narrowing. No large osteophytes. Small degenera tive osteophytes noted. HARDWARE: None in the spine. MEDIASTINUM AND SOFT TISSUES: Normal heart size and aortic contour. No soft tissue abnormality. VISUALIZED LUNG ZAMAN: Clear. OTHER: Right IJ tunneled hemodialysis catheter noted. IMPRESSION: No acute fracture or traumatic subluxation of the thoracic spine. TECHNICAL DOCUMENTATION: JOB ID: [id number]- All Rights Reserved
[2017-06-11] MEDS ORDERED: HYDROMORPHONE HCL INJ/PF 2 MG/ML AMPULE IM ONE (17:05)
[2017-06-11 17:53] VITALS: BP 180/88
== END 2017-06-11 17:45 | disposition home or self-care (01) ==
LOC: ER 14:57
DX: S00.93XA Contusion of unspecified part of head, initial encounter (principal); M54.9 Dorsalgia, unspecified; W01.0XXA Fall on same level from slipping, tripping and stumbling without subsequent striking against object, initial encounter; Y93.G1 Activity, food preparation and clean up; I12.0 Hypertensive chronic kidney disease with stage 5 chronic kidney disease or end stage renal disease; N18.6 End stage renal disease; I25.10 Atherosclerotic heart disease of native coronary artery without angina pectoris; K21.9 Gastro-esophageal reflux disease without esophagitis; Z99.2 Dependence on renal dialysis; Z88.6 Allergy status to analgesic agent; Z88.3 Allergy status to other anti-infective agents; I25.2 Old myocardial infarction; Z86.73 Personal history of transient ischemic attack (TIA), and cerebral infarction without residual deficits; Z21 Asymptomatic human immunodeficiency virus [HIV] infection status; Z90.710 Acquired absence of both cervix and uterus
CPT/HCPCS: 99284; 96372; 36415; 85025; 80053; 72070; 70450; J1170

== ENCOUNTER 2017-06-14 08:58 | Emergency (ER) | payer MEDICARE, OTHER ==
[2017-06-14 09:53] LABS: ABSOLUTE BASOPHILS # (AUTO) 0.1 10^3/uL (0.0-0.2); ABSOLUTE EOSINOPHILS # (AUTO) 0.2 10^3/uL (0.0-0.6); ABSOLUTE LYMPHOCYTES (AUTO) 0.5 10^3/uL (0.5-4.7); ABSOLUTE MONOCYTES (AUTO) 0.4 10^3/uL (0.1-1.4); ABSOLUTE NEUT (AUTO) 2.6 10^3/uL (1.7-8.2); BASOPHILS % (AUTO) 3.1 % (0-2); EOSINOPHILS % (AUTO) 5.7 % (0-6); HEMATOCRIT 34.4 % (36.0-47.0); HEMOGLOBIN 10.9 g/dL (12.0-15.5); HGB HCT DIFFERENCE -1.7; LYMPHOCYTES % (AUTO) 12.9 % (13-45); MEAN CORPUSCULAR HEMOGLOBIN 25.2 pg (27.0-33.4); MEAN CORPUSCULAR HGB CONC 31.7 g/dL (32.0-36.0); MEAN CORPUSCULAR VOLUME 80 fl (80-97); MONOCYTES % (AUTO) 9.5 % (3-13); RED BLOOD COUNT 4.33 10^6/uL (3.72-5.28); RED CELL DISTRIBUTION WIDTH 23.4 % (11.5-14.0); SEGMENTED NEUTROPHILS % (AUTO) 68.8 % (42-78); WHITE BLOOD COUNT 3.7 10^3/uL (4.0-10.5)
[2017-06-14 10:23] LABS: ALANINE AMINOTRANSFERASE 18 U/L (9-52); ALKALINE PHOSPHATASE 103 U/L (38-126); ASPARTATE AMINO TRANSFERASE 20 U/L (14-36); BILIRUBIN,DIRECT 0.6 mg/dL (0.0-0.4); BILIRUBIN,TOTAL 0.6 mg/dL (0.2-1.3); BLOOD UREA NITROGEN 84 mg/dL (7-20); CALCIUM 9.7 mg/dL (8.4-10.2); CARBON DIOXIDE 20 mmol/L (22-30); CREATININE RESULT 11.29 mg/dL (0.52-1.25); GLUCOSE 96 mg/dL (75-110); POTASSIUM 5.6 mmol/L (3.6-5.0)
[2017-06-14 10:36] LABS: CHLORIDE 98 mmol/L (98-107); SODIUM 139.2 mmol/L (137-145)
[2017-06-14 10:42] LABS: ANION GAP 21 (5-19)
[2017-06-14] MEDS ORDERED: ONDANSETRON 4 MG TAB.RAPDIS PO ONE (11:48)
--- NOTE | 2017-06-14 11:49 | ER Document Report ---
ED General - General Chief Complaint: Other Stated Complaint: WEAKNESS Time Seen by Provider: 06/14/17 09:20 Notes: Patient is a 51 year old female who presents to the ED complaining of need for dialysis. She has ESRD on dialysis monday, and monday. She states her last dialysis was monday at her home facility in [place]. She states she was supposed to have dialysis set up with [facility] but her facility did not organize the paperwork. She presented with a complaint of nausea but otherwise feels okay. PMH: ESRD on HD T/R/Sa, HTN TRAVEL OUTSIDE OF THE [place] IN LAST 30 DAYS: No - Related Data Allergies/Adverse Reactions: acetaminophen [From Percocet] Allergy (Verified 06/14/17 09:03) rash oxycodone HCl [From Percocet] Allergy (Verified 06/14/17 09:03) sulfamethoxazole [From Bactrim] Allergy (Verified 06/14/17 09:03) trimethoprim [From Bactrim] Allergy (Verified 06/14/17 09:03) alprazolam [From Xanax] Adverse Reaction (Verified 06/14/17 09:03) Hallucinations Past Medical History - Social History Smoking Status: Never Smoker Frequency of alcohol use: None Drug Abuse: None Family History: Reviewed & Not Pertinent - Past Medical History Cardiac Medical History: Reports: Hx Coronary Artery Disease, Hx Heart Attack, Hx Hypertension Denies: Hx DVT, Hx Hypercholesterolemia, Hx Pulmonary Embolism Pulmonary Medical History: Reports: Hx Asthma Neurological Medical History: Reports: Hx Cerebrovascular Accident, Hx Seizures - Last episode in 2014. Endocrine Medical History: Denies: Hx Diabetes Mellitus Type 1, Hx Diabetes Mellitus Type 2, Hx Hyperthyroidism, Hx Hypothyroidism Renal/ Medical History: Reports: Hx End Stage Renal Disease. Denies: Hx Peritoneal Dialysis GI Medical History: Reports: Hx Gastroesophageal Reflux Disease. Denies: Hx Cirrhosis, Hx Hepatitis Musculoskeltal Medical History: Reports Hx Arthritis, Reports Hx Musculoskeletal Deformity Skin Medical History: Denies Hx Eczema, Denies Hx Psoriasis Psychiatric Medical History: Denies: Hx Depression Infectious Medical History: Reports: Hx HIV. Denies: Hx Hepatitis Past Surgical History: Reports: Hx Cardiac Catheterization, Hx Coronary Stent, Hx Hysterectomy, Hx Valve Replacement - Dialysis catheter, Other - Hemodialysis catheter insertion. - Immunizations Immunizations up to date: No Hx Diphtheria, Pertussis, Tetanus Vaccination: Yes Review of Systems - Review of Systems Constitutional: No symptoms reported EENT: No symptoms reported Cardiovascular: No symptoms reported Respiratory: No symptoms reported Gastrointestinal: See HPI Genitourinary: No symptoms reported Female Genitourinary: No symptoms reported -: Yes All other systems reviewed and negative Physical Exam - Vital signs Vitals: Temp Pulse Resp BP Pulse Ox 98.7 F 77 18 137/77 H 92 06/14/17 09:05 06/14/17 09:05 06/14/17 09:05 06/14/17 09:05 06/14/17 09:05 - Notes Notes: PHYSICAL EXAM GENERAL: Alert, interacts well. HEAD: Normocephalic, atraumatic. EYES: Pupils equal, round, and reactive to light. Extraocular movements intact. ENT: Oral mucosa moist, tongue midline. NECK: Full range of motion. Supple. Trachea midline. LUNGS: Clear to auscultation bilaterally, no wheezes, rales, or rhonchi. No respiratory distress. HEART: Regular rate and rhythm. No murmurs, gallops, or rubs. ABDOMEN: Soft, nondistended, nontender. No guarding, rebound, or rigidity.. Bowel sounds present in all 4 quadrants. EXTREMITIES: Moves all 4 extremities spontaneously. No edema, radial and dorsalis pedis pulses 2/4 bilaterally. No cyanosis. NEUROLOGICAL: Alert and oriented x4. Normal speech. PSYCH: Normal affect, normal mood. SKIN: Warm, dry, normal turgor. No rashes or lesions noted. Course - Re-evaluation Re-evalutation: 06/14/17 12:39 Patient is a 51-year-old female who is hemodynamically stable, no acute distress afebrile. CBC is stable without any evidence of anemia. No evidence of hyperkalemia. Discussion of results with consulting narrow fabric loom fixer Dr. Moody he states that she does not meet requirements for emergency dialysis, that she can be given Kayexalate discharged and follow-up with her dialysis for her appointment at her home center tomorrow. Discussion with family are frustrated that they agree with plan. Patient was refusing Kayexalate. Stable for discharge home - Vital Signs Vital signs: Temp Pulse Resp BP Pulse Ox 98.8 F 81 18 142/73 H 100 06/14/17 12:57 06/14/17 12:55 06/14/17 09:10 06/14/17 12:55 06/14/17 12:55 - Laboratory Result Diagrams: 06/14/17 09:40 06/14/17 09:40 Laboratory results interpreted by me: 06/14/17 06/14/17 06/14/17 09:40 09:40 09:40 WBC 3.7 L Hgb 10.9 L Hct 34.4 L MCH 25.2 L MCHC 31.7 L RDW 23.4 H Plt Count 133 L Lymphocytes % 12.9 L Basophils % 3.1 H Potassium 5.6 H Carbon Dioxide 20 L Anion Gap 21 H BUN 84 H Creatinine 11.29 H Est GFR ( Amer) 4 L Est GFR (Non-Af Amer) 4 L Magnesium 2.7 H Direct Bilirubin 0.6 H - EKG Interpretation by Me EKG shows normal: Sinus rhythm Rate: Normal Rhythm: NSR - peaked t waves When compared to previous EKG there are: No significant change Discharge - Discharge Clinical Impression: End stage renal disease Condition: Stable Disposition: HOME, SELF-CARE Instructions: Kidney Failure ([facility]) Additional Instructions: Please follow-up with your narrow fabric loom fixer for dialysis tomorrow Our disease case manager will be in touch with you regarding if you decide to visit the area again your ability to go to [facility] outpatient clinic for dialysis.
[2017-06-14 12:57] VITALS: BP 142/73
--- NOTE | 2017-06-14 22:48 | EKG REPORT ---
SEVERITY:- ABNORMAL ECG - SINUS RHYTHM CONSIDER ANTEROSEPTAL INFARCT : Confirmed by: Alejandra Yang 14-Jun-2017 22:48:03
== END 2017-06-14 12:59 | disposition home or self-care (01) ==
LOC: ER 08:58
DX: N18.6 End stage renal disease (principal); R53.1 Weakness; R11.0 Nausea; Z99.2 Dependence on renal dialysis
CPT/HCPCS: 93005; 99285; 36415; 83735; 85025; 80053; 93010; A9270; S0119

== ENCOUNTER 2017-06-15 04:41 | Observation (INO) | payer MEDICARE, OTHER ==
[2017-06-15] MEDS ORDERED: ASPIRIN 81 MG TABLET, CHEWABLE PO ONE (04:50)
--- NOTE | 2017-06-15 05:08 | ER Document Report ---
Doctor's Note Notes: 06/15/17 05:05 I performed a quick triage evaluation of the patient. Patient is a 51-year-old female who presents with complaint of chest pain or shortness of breath. She is a end-stage renal disease patient. I have seen her a few times in the past. She actually lives in [place] but visits family here frequently. She has not had dialysis in almost a week. She does receive dialysis in [place]. Her family members at the bedside. He said that the outreach and education social worker at the dialysis clinic in [facility] was supposed to send paperwork to the dialysis clinic here so she had dialysis here however it was never sent and therefore she is gone without dialysis again. She was seen here in the ED yesterday. The ER physician assistant manager pt spoke with Dr. Nelson Moody, academic affairs specialist digestion operator. At that time was decided that she did not meet criteria for emergent dialysis because her potassium was only 5.6. She was therefore discharged and told to follow-up closely with her dialysis doctor for dialysis. Patient comes back today she still has not had dialysis and feels like she is worsening. Despite having chest pain she has no history of coronary disease. My experience with her in the past is that whenever she is due for dialysis she develops chest pain. Her family member confirms this. They deny any recent fevers or infections. On exam patient is complaining of pain but is in no distress. Her respirations appear normal. Her lung charles currently are clear. We will obtain a chest x-ray. Will obtain lab work and placed on a monitor. Initial EKG shows no evidence of TX. She has a normal sinus rhythm with 82 bpm. There are no acute concerning ST segment changes.
[2017-06-15 05:17] LABS: ABSOLUTE BASOPHILS # (AUTO) 0.1 10^3/uL (0.0-0.2); ABSOLUTE EOSINOPHILS # (AUTO) 0.3 10^3/uL (0.0-0.6); ABSOLUTE LYMPHOCYTES (AUTO) 0.8 10^3/uL (0.5-4.7); ABSOLUTE MONOCYTES (AUTO) 0.7 10^3/uL (0.1-1.4); ABSOLUTE NEUT (AUTO) 3.6 10^3/uL (1.7-8.2); BASOPHILS % (AUTO) 1.2 % (0-2); EOSINOPHILS % (AUTO) 5.9 % (0-6); HEMATOCRIT 34.9 % (36.0-47.0); HEMOGLOBIN 11.2 g/dL (12.0-15.5); HGB HCT DIFFERENCE -1.3; LYMPHOCYTES % (AUTO) 14.4 % (13-45); MEAN CORPUSCULAR HEMOGLOBIN 25.3 pg (27.0-33.4); MEAN CORPUSCULAR HGB CONC 32.2 g/dL (32.0-36.0); MEAN CORPUSCULAR VOLUME 79 fl (80-97); MONOCYTES % (AUTO) 12.6 % (3-13); RED BLOOD COUNT 4.44 10^6/uL (3.72-5.28); RED CELL DISTRIBUTION WIDTH 24.4 % (11.5-14.0); SEGMENTED NEUTROPHILS % (AUTO) 65.9 % (42-78); WHITE BLOOD COUNT 5.5 10^3/uL (4.0-10.5)
[2017-06-15 05:36] LABS: ALANINE AMINOTRANSFERASE 18 U/L (9-52); ALBUMIN 4.3 g/dL (3.5-5.0); ALKALINE PHOSPHATASE 97 U/L (38-126); ASPARTATE AMINO TRANSFERASE 20 U/L (14-36); BILIRUBIN,DIRECT 0.6 mg/dL (0.0-0.4); BILIRUBIN,TOTAL 0.6 mg/dL (0.2-1.3); BLOOD UREA NITROGEN 91 mg/dL (7-20); CALCIUM 9.4 mg/dL (8.4-10.2); CARBON DIOXIDE 19 mmol/L (22-30); CHLORIDE 98 mmol/L (98-107); CREATINE KINASE 67 U/L (30-135); CREATININE RESULT 12.61 mg/dL (0.52-1.25); GLUCOSE 103 mg/dL (75-110); TOTAL PROTEIN 7.5 g/dL (6.3-8.2)
[2017-06-15 05:39] LABS: POTASSIUM 6.3 mmol/L (3.6-5.0)
[2017-06-15 05:46] LABS: ACANTHOCYTES 1+; ANISOCYTOSIS 3+; BURR CELLS 2+; HELMET CELLS SLIGHT; HYPOCHROMASIA 1+; MICROCYTOSIS SLIGHT; OVALOCYTES 2+; POIKILOCYTOSIS 3+; POLYCHROMASIA 1+; TEAR DROP CELLS 1+
[2017-06-15 05:47] LABS: CREATINE KINASE MB 2.93 ng/mL (<4.55)
[2017-06-15 05:51] LABS: TROPONIN I < 0.012 ng/mL
[2017-06-15] MEDS ORDERED: CALCIUM GLUCONATE 1000 MG/10 ML INJ IV ONE (06:11)
[2017-06-15] MEDS ORDERED: ALBUTEROL SULFATE 0.083% NEB 2.5 MG/3 ML AMPUL NEB ONE (06:11)
[2017-06-15] MEDS ORDERED: INSULIN REG, HUMAN 100 UNIT/ML 3 ML VIAL (PYX) IV ONE (06:11)
[2017-06-15] MEDS ORDERED: SODIUM BICARBONATE 8.4% INJ 50 MEQ/50 ML DISP.SYRIN IV ONE (06:11)
[2017-06-15] MEDS ORDERED: DEXTROSE 50%-WATER 25 GM/50 ML DISP.SYRIN IV ONE (06:11)
--- NOTE | 2017-06-15 06:17 | RADIOLOGY REPORT (SQ) ---
EXAM DESCRIPTION: CHEST SINGLE VIEW COMPLETED DATE/TIME: 06/15/2017 5:58 am REASON FOR STUDY: chest pain COMPARISON: 10/26/2016. EXAM PARAMETERS: NUMBER OF VIEWS: One view. TECHNIQUE: Single frontal radiographic view of the chest acquired. RADIATION DOSE: NA LIMITATIONS: None. FINDINGS: LUNGS AND PLEURA: Mild mixed interstitial markings and airspace opacity. MEDIASTINUM AND HILAR STRUCTURES: No masses. Contour normal. HEART AND VASCULAR STRUCTURES: Moderate enlargement of the cardiac silhouette. BONES: No acute findings. HARDWARE: Right internal jugular dual-lumen catheter tip at the cavoatrial junction. OTHER: No other significant finding. IMPRESSION: Mild mixed interstitial and airspace opacity appears less severe compared with prior tej ilable radiographs from 10/26/2016. Differential diagnosis includes mild CHF, mild pulmonary edema, a nd/or chronic interstitial lung disease. TECHNICAL DOCUMENTATION: JOB ID: [id number]
[2017-06-15 06:25] LABS: ANION GAP 20 (5-19)
[2017-06-15] MEDS ORDERED: HEPARIN SOD (PORCINE) 1,000 UNIT/ML 10 ML VIAL IV PRN ×2 (06:45→13:23)
[2017-06-15] MEDS ORDERED: HEPARIN SOD (PORCINE) 1,000 UNIT/ML 10 ML VIAL IV ONE (06:45)
[2017-06-15] MEDS ORDERED: HEPARIN SODIUM,PORCINE/D5W 25,000 UNIT/250 ML RTUINJ IV PRN (06:45)
--- NOTE | 2017-06-15 07:05 | ER Document Report ---
ED General - General Chief Complaint: Chest Pain Stated Complaint: CHEST PAIN, VOMITING Time Seen by Provider: 06/15/17 05:05 Mode of Arrival: Ambulatory Information source: Patient Notes: 51-year-old female history of HIV who is on chronic dialysis who last had dialysis performed last was supposed to have it done on Monday presents for the third time in 4 days to the emergency department for evaluation. Patient was seen here prior noted that the potassium was not significantly elevated and was discharged home, she had refused Kayexalate at at that time. TRAVEL OUTSIDE OF THE [place] IN LAST 30 DAYS: No - HPI Onset: Last week Onset/Duration: Persistent Quality of pain: No pain Severity: Moderate Pain Level: Denies Associated symptoms: Nausea, Vomiting, Shortness of breath Exacerbated by: Denies Relieved by: Denies Similar symptoms previously: Yes Recently seen / treated by doctor: Yes - Related Data Allergies/Adverse Reactions: acetaminophen [From Percocet] Allergy (Verified 06/14/17 09:03) rash oxycodone HCl [From Percocet] Allergy (Verified 06/14/17 09:03) sulfamethoxazole [From Bactrim] Allergy (Verified 06/14/17 09:03) trimethoprim [From Bactrim] Allergy (Verified 06/14/17 09:03) alprazolam [From Xanax] Adverse Reaction (Verified 06/14/17 09:03) Hallucinations Home Medications: Current Home Medications Aa8/A-Carnit/Grap/[place]/[id number] [Gabadone Capsule] 1 cap PO Q8 06/15/17 [History] Calcitriol 1 cap PO BID 06/15/17 [History] Calcium Carbonate [Tums Chewable 500 mg Tab.chew] 1,000 mg PO BID 06/15/17 [ History] Clonazepam [Klonopin 2 mg Tablet] 2 mg PO BID 06/15/17 [History] Efavirenz [Sustiva 600 Mg Tablet] 600 mg PO DAILY 06/15/17 [History] Hydralazine HCl 100 mg PO Q12 06/15/17 [History] Hydromorphone HCl [Dilaudid 2 mg Tablet] 2 mg PO Q6HP PRN 06/15/17 [History] Labetalol HCl [Trandate] 300 mg PO Q12 06/15/17 [History] Levetiracetam [Keppra 500 mg Tablet] 500 mg PO Q12 06/15/17 [History] Minoxidil [Loniten 2.5 Mg Tablet] 2.5 mg PO Q12HP PRN 06/15/17 [History] Ondansetron HCl [Zofran 4 mg Tablet] 1 tab PO Q4HP PRN 06/15/17 [History] Pantoprazole Sodium [Protonix] 40 mg PO DAILY 06/15/17 [History] Sevelamer HCl [Renagel 400 Mg Tablet] 800 mg PO AC 06/15/17 [History] Past Medical History - Social History Smoking Status: Former Smoker Cigarette use (# per day): No Chew tobacco use (# tins/day): No Smoking Education Provided: No Frequency of alcohol use: None Drug Abuse: None Family History: Reviewed & Not Pertinent Patient has suicidal ideation: No Patient has homicidal ideation: No - Past Medical History Cardiac Medical History: Reports: Hx Coronary Artery Disease, Hx Heart Attack, Hx Hypertension Denies: Hx DVT, Hx Hypercholesterolemia, Hx Pulmonary Embolism Pulmonary Medical History: Reports: Hx Asthma Neurological Medical History: Reports: Hx Cerebrovascular Accident, Hx Seizures - Last episode in 2014. Endocrine Medical History: Denies: Hx Diabetes Mellitus Type 1, Hx Diabetes Mellitus Type 2, Hx Hyperthyroidism, Hx Hypothyroidism Renal/ Medical History: Reports: Hx End Stage Renal Disease. Denies: Hx Peritoneal Dialysis GI Medical History: Reports: Hx Gastroesophageal Reflux Disease. Denies: Hx Cirrhosis, Hx Hepatitis Musculoskeltal Medical History: Reports Hx Arthritis, Reports Hx Musculoskeletal Deformity Skin Medical History: Denies Hx Eczema, Denies Hx Psoriasis Psychiatric Medical History: Denies: Hx Depression Infectious Medical History: Reports: Hx HIV. Denies: Hx Hepatitis Past Surgical History: Reports: Hx Cardiac Catheterization, Hx Coronary Stent, Hx Hysterectomy, Hx Valve Replacement - Dialysis catheter, Other - Hemodialysis catheter insertion. - Immunizations Immunizations up to date: No Hx Diphtheria, Pertussis, Tetanus Vaccination: Yes Review of Systems - Review of Systems Notes: REVIEW OF SYSTEMS: CONSTITUTIONAL : Denies fever, chills, or sweats. Denies recent illness. EENT: Denies eye, ear, throat, or mouth pain or symptoms. Denies nasal or sinus congestion or discharge. Denies throat, tongue, or mouth swelling or difficulty swallowing. CARDIOVASCULAR: Denies chest pain. Denies palpitations or racing or irregular heart beat. Denies ankle edema. RESPIRATORY: Denies cough, cold, or chest congestion. Denies shortness of breath, difficulty breathing, or wheezing. GASTROINTESTINAL: admits to vomiting GENITOURINARY: Denies difficulty urinating, painful urination, burning, frequency, blood in urine, or discharge. FEMALE GENITOURINARY: Denies vaginal bleeding, heavy or abnormal periods, irregular periods. Denies vaginal discharge or odor. MUSCULOSKELETAL: Denies back or neck pain or stiffness. Denies joint pain or swelling. SKIN: Denies rash, lesions or sores. HEMATOLOGIC : Denies easy bruising or bleeding. LYMPHATIC: Denies swollen, enlarged glands. NEUROLOGICAL: Denies confusion or altered mental status. Denies passing out or loss of consciousness. Denies dizziness or lightheadedness. Denies headache. Denies weakness or paralysis or loss of use of either side. Denies problems with gait or speech. Denies sensory loss, numbness, or tingling. Denies seizures. PSYCHIATRIC: Denies anxiety or stress. Denies depression, suicidal ideation, or homicidal ideation. ALL OTHER SYSTEMS REVIEWED AND NEGATIVE. PHYSICAL EXAMINATION: GENERAL: Well-appearing, well-nourished and in no acute distress. HEAD: Atraumatic, normocephalic. EYES: Pupils equal round and reactive to light, extraocular movements intact, conjunctiva are normal. ENT: Nares patent, oropharynx clear without exudates. Moist mucous membranes. NECK: Normal range of motion, supple without lymphadenopathy LUNGS: Breath sounds clear to auscultation bilaterally and equal. No wheezes rales or rhonchi. HEART: Regular rate and rhythm without murmurs ABDOMEN: Soft, nontender, nondistended abdomen. No guarding, no rebound. No masses appreciated. Female : deferred Musculoskeletal: Normal range of motion, no pitting or edema. No cyanosis. NEUROLOGICAL: Cranial nerves grossly intact. Normal speech, normal gait. Normal sensory, motor exams PSYCH: Normal mood, normal affect. SKIN: Warm, Dry, normal turgor, no rashes or lesions noted. Dictation was performed using [employer] voice recognition software Physical Exam - Vital signs Vitals: Pulse Ox 86 L 06/15/17 04:55 Course - Re-evaluation Re-evalutation: 06/15/17 07:05 pts potassium is 6.3, meds started no ekg change noted dr anna harris 06/15/17 16:06 Patient was admitted to the ICU to have dialysis performed otherwise she looks quite well given her potassium level - Vital Signs Vital signs: Temp Pulse Resp BP Pulse Ox 82 19 121/73 96 06/15/17 14:00 06/15/17 11:00 06/15/17 10:01 06/15/17 11:00 - Laboratory Result Diagrams: 06/15/17 09:59 06/15/17 10:50 Laboratory results interpreted by me: 06/15/17 06/15/17 05:03 05:03 Hgb 11.2 L Hct 34.9 L MCV 79 L MCH 25.3 L RDW 24.4 H Potassium 6.3 H* Carbon Dioxide 19 L Anion Gap 20 H BUN 91 H Creatinine 12.61 H Est GFR ( Amer) 4 L Est GFR (Non-Af Amer) 3 L Direct Bilirubin 0.6 H - Diagnostic Test Radiology reviewed: Image reviewed, Reports reviewed - EKG Interpretation by Me EKG shows normal: Sinus rhythm, Vernal, Intervals, QRS Complexes When compared to previous EKG there are: No significant change Critical Care Note - Critical Care Note Total time excluding time spent on procedures (mins): 34 Comments: 34 minutes of critical care time spent in direct contact evaluating and reevaluating the patient, treating symptoms, reviewing labs and studies and speaking with family and consultants excluding any procedures Discharge - Discharge Clinical Impression: HIV (human immunodeficiency virus infection), Hyperkalemia, End stage renal disease Condition: Serious Disposition: ADMITTED OBSERVATION Admitting Provider: Hospitalist Unit Admitted: ICU
[2017-06-15 10:14] LABS: ABSOLUTE BASOPHILS # (AUTO) 0.1 10^3/uL (0.0-0.2); ABSOLUTE EOSINOPHILS # (AUTO) 0.3 10^3/uL (0.0-0.6); ABSOLUTE LYMPHOCYTES (AUTO) 0.7 10^3/uL (0.5-4.7); ABSOLUTE MONOCYTES (AUTO) 0.8 10^3/uL (0.1-1.4); ABSOLUTE NEUT (AUTO) 4.9 10^3/uL (1.7-8.2); EOSINOPHILS % (AUTO) 4.4 % (0-6); HEMATOCRIT 34.4 % (36.0-47.0); HEMOGLOBIN 11.1 g/dL (12.0-15.5); HGB HCT DIFFERENCE -1.1; LYMPHOCYTES % (AUTO) 10.6 % (13-45); MEAN CORPUSCULAR HEMOGLOBIN 25.1 pg (27.0-33.4); MEAN CORPUSCULAR HGB CONC 32.2 g/dL (32.0-36.0); MEAN CORPUSCULAR VOLUME 78 fl (80-97); MONOCYTES % (AUTO) 12.2 % (3-13); RED BLOOD COUNT 4.41 10^6/uL (3.72-5.28); SEGMENTED NEUTROPHILS % (AUTO) 71.8 % (42-78); WHITE BLOOD COUNT 6.9 10^3/uL (4.0-10.5)
--- NOTE | 2017-06-15 10:16 | EKG REPORT ---
SEVERITY:- ABNORMAL ECG - SINUS RHYTHM PROBABLE LEFT ATRIAL ABNORMALITY CONSIDER ANTEROSEPTAL INFARCT : Confirmed by: Alejandra Yang 15-Jun-2017 10:15:31
[2017-06-15 11:30] LABS: PARTIAL THROMBOPLASTIN TIME 34.7 SEC (23.5-35.8); PROTHROMBIN TIME 14.2 SEC (11.4-15.4)
[2017-06-15] MEDS ORDERED: HEPARIN SOD (PORCINE) 5,000 UNIT/ML 1 ML SYRINGE SUBCUT SCH (14:00)
--- NOTE | 2017-06-15 14:51 | PDOC CONSULTATION ---
Consultation Consult Date: 06/15/17 Consult reason:: ESRD and Hyperkalemia History of Present Illness Admission Date/PCP: 06/15/17 09:26 History of Present Illness: HARVINDER LUZ is a 51 year old female with a history of HIV and end-stage renal disease who presented to the emergency department today seeking dialysis. She and her are from [facility]. They have been in [place] for several days. They came to visit his () father. According to her , they attempted to arrange dialysis before they left the [facility]. She normally undergoes hemodialysis Monday, , and Monday. Her last treatment was 5 days ago. According to her , "the paperwork was not sent" from their dialysis Center in [place] to one in [place]. Therefore, she has missed at least one treatment session. She were seen in the emergency department 2 days ago for weakness. At that time, her potassium was 5.6. She was not offered hemodialysis. They were going to go back to [place] today in order to undergo hemodialysis, but since she was not feeling well, the came here. Her potassium was 6.3 today. She does not report chest pain or significant shortness of breath. She is not edematous. She has not experienced seizures. She did report nausea but not vomiting. There has been no change in her mental status. Patient seen on Dialysis which she is undergoing without any issues.VS stable. Past Medical History Cardiac Medical History: Reports: Coronary Artery Disease, Hypertension-primary , Myocardial Infarction Denies: DVT, Hyperlipidemia, Pulmonary Embolism Pulmonary Medical History: Reports: Asthma Neurological Medical History: Reports: Seizures Endocrine Medical History: Denies: Diabetes Mellitus Type 1, Diabetes Mellitus Type 2, Hyperthyroidism, Hypothyroidism Renal/ Medical History: Reports: End Stage Renal Disease, Renal Osteodystropy GI Medical History: Reports: Gastroesophageal Reflux Disease Denies: Cirrhosis, Hepatitis Musculoskeltal Medical History: Reports: Arthritis Skin Medical History: Denies: Eczema, Psoriasis Psychiatric Medical History: Denies: Depression Infectious Medical History: Reports: HIV Hematology Medical History: Reports Anemia of Chronic Kidney Disease Past Surgical History Past Surgical History: Reports: Cardiac Catheterization, Coronary Stent, Hysterectomy, Valve Replacement - Dialysis catheter, Other - Hemodialysis catheter insertion. Social History Smoking Status: Never Smoker Frequency of Alcohol Use: None Hx Recreational Drug Use: No Drugs: None Hx Prescription Drug Abuse: No - Advance Directive Resuscitation Status: Full Code Family History Parental Family History Reviewed: No Children Family History Reviewed: No Sibling(s) Family History Reviewed.: No Medication/Allergy Home Medications: Aa8/A-Carnit/Grap/[place]/Ftp866 [Gabadone Capsule] 1 cap PO Q8 06/15/17 Calcitriol 1 cap PO BID 06/15/17 Calcium Carbonate [Tums Chewable 500 mg Tab.chew] 1,000 mg PO BID 06/15/17 Clonazepam [Klonopin 2 mg Tablet] 2 mg PO BID 06/15/17 Efavirenz [Sustiva 600 Mg Tablet] 600 mg PO DAILY 06/15/17 Hydralazine HCl 100 mg PO Q12 06/15/17 Hydromorphone HCl [Dilaudid 2 mg Tablet] 2 mg PO Q6HP PRN 06/15/17 Labetalol HCl [Trandate] 300 mg PO Q12 06/15/17 Levetiracetam [Keppra 500 mg Tablet] 500 mg PO Q12 06/15/17 Minoxidil [Loniten 2.5 Mg Tablet] 2.5 mg PO Q12HP PRN 06/15/17 Ondansetron HCl [Zofran 4 mg Tablet] 1 tab PO Q4HP PRN 06/15/17 Pantoprazole Sodium [Protonix] 40 mg PO DAILY 06/15/17 Sevelamer HCl [Renagel 400 Mg Tablet] 800 mg PO AC 06/15/17 Allergies/Adverse Reactions: acetaminophen [From Percocet] Allergy (Verified 06/14/17 09:03) rash oxycodone HCl [From Percocet] Allergy (Verified 06/14/17 09:03) sulfamethoxazole [From Bactrim] Allergy (Verified 06/14/17 09:03) trimethoprim [From Bactrim] Allergy (Verified 06/14/17 09:03) alprazolam [From Xanax] Adverse Reaction (Verified 06/14/17 09:03) Hallucinations Review of Systems Constitutional: PRESENT: headache(s), weakness. ABSENT: fever(s), night sweats Cardiovascular: ABSENT: dyspnea on exertion, edema, orthropnea, palpitations Respiratory: ABSENT: dyspnea, hemoptysis Gastrointestinal: ABSENT: abdominal pain, diarrhea, dysphagia, heartburn, hematemesis, hematochezia Integumentary: ABSENT: pruritus, rash Neurological: ABSENT: abnormal speech, confusion, focal weakness Hematologic/Lymphatic: ABSENT: easy bruising, lymphadenopathy Physical Exam Vital Signs: Temp Pulse Resp BP Pulse Ox 82 19 121/73 96 06/15/17 14:00 06/15/17 11:00 06/15/17 10:01 06/15/17 11:00 Intake & Output 06/14/17 06/15/17 06/16/17 06:59 06:59 06:59 Weight 60.328 kg General appearance: PRESENT: no acute distress Eye exam: PRESENT: conjunctiva pink, EOMI, PERRLA Ear exam: PRESENT: normal external ear exam Mouth exam: PRESENT: moist, neck supple Neck exam: ABSENT: lymphadenopathy, meningismus, tenderness, thyromegaly, tracheal deviation Respiratory exam: PRESENT: clear to auscultation dee, symmetrical. ABSENT: crackles Cardiovascular exam: PRESENT: +S1, +S2, systolic murmur GI/Abdominal exam: PRESENT: soft. ABSENT: organomegaly, tenderness Extremities exam: PRESENT: pedal edema Neurological exam: PRESENT: alert, awake, oriented to person, oriented to place Results Laboratory Results: 06/15/17 09:59 06/15/17 10:50 06/15/17 06/15/17 06/15/17 09:59 09:59 10:50 WBC 6.9 RBC 4.41 Hgb 11.1 L Hct 34.4 L MCV 78 L MCH 25.1 L MCHC 32.2 RDW 24.0 H Plt Count 172 Seg Neutrophils % 71.8 Lymphocytes % 10.6 L Monocytes % 12.2 Eosinophils % 4.4 Basophils % 1.0 Absolute Neutrophils 4.9 Absolute Lymphocytes 0.7 Absolute Monocytes 0.8 Absolute Eosinophils 0.3 Absolute Basophils 0.1 Potassium Cancelled 6.7 H* Impressions: Chest X-Ray 06/15/17 05:41 IMPRESSION: Mild mixed interstitial and airspace opacity appears less severe compared with prior available radiographs from 10/26/2016. Differential diagnosis includes mild CHF, mild pulmonary edema, and/or chronic interstitial lung disease. Assessment & Plan - Diagnosis (1) Anemia in chronic kidney disease Qualifiers: Chronic kidney disease stage: on chronic dialysis Qualified Code(s): N18.6 - End stage renal disease; D63.1 - Anemia in chronic kidney disease; Z99.2 - Dependence on renal dialysis Is this a current diagnosis for this admission?: Yes Plan: stable.no need for EPO. (2) HIV (human immunodeficiency virus infection) Plan: On meds. (3) Hyperkalemia Plan: should respond to HD.Adv on diet . (4) Seizures Is this a current diagnosis for this admission?: Yes (5) End stage renal disease Plan: Patient seen on HD.No issues .VS stable.Orders discussed with treating SANDRINE Nieto.Plan UF x 3 l as tolerated. (6) Hypertension Qualifiers: Hypertension type: essential hypertension Qualified Code(s): I10 - Essential (primary) hypertension Is this a current diagnosis for this admission?: Yes Plan: relatively stable.Monitor HD response.
[2017-06-15] MEDS ORDERED: GABAPENTIN 300 MG CAPSULE PO ONE (15:32)
[2017-06-15] MEDS ORDERED: CLONAZEPAM 1 MG TABLET PO ONE (15:32)
[2017-06-15] MEDS ORDERED: LEVETIRACETAM 500 MG TABLET PO ONE (15:33)
[2017-06-15] MEDS ORDERED: HYDROMORPHONE HCL 2 MG TABLET PO PRN (15:45)
[2017-06-15] MEDS ORDERED: EFAVIRENZ 600 MG TABLET PO SCH (15:45)
[2017-06-15] MEDS ORDERED: MINOXIDIL 2.5 MG TABLET PO PRN (15:45)
--- NOTE | 2017-06-15 15:51 | PDOC H&P ---
History of Present Illness Admission Date/PCP: 06/15/17 08:03 Patient complains of: Missed dialysis History of Present Illness: HARVINDER LUZ is a 51 year old female with a history of HIV and end-stage renal disease who presented to the emergency department today seeking dialysis. She and her are from [facility]. They have been in [place] for several days. They came to visit his () father. According to her , they attempted to arrange dialysis before they left the [facility]. She normally undergoes hemodialysis Monday, , and Monday. Her last treatment was 5 days ago. According to her , "the paperwork was not sent" from their dialysis Center in [place] to one in [place]. Therefore, she has missed at least one treatment session. She were seen in the emergency department 2 days ago for weakness. At that time, her potassium was 5.6. She was not offered hemodialysis. They were going to go back to [place] today in order to undergo hemodialysis, but since she was not feeling well, the came here. Her potassium was 6.3 today. She does not report chest pain or significant shortness of breath. She is not edematous. She has not experienced seizures. She did report nausea but not vomiting. There has been no change in her mental status. Past Medical History Cardiac Medical History: Reports: Coronary Artery Disease, Myocardial Infarction , Hypertension Denies: DVT, Hyperlipidema, Pulmonary Embolism Pulmonary Medical History: Reports: Asthma Neurological Medical History: Reports: Seizures - Last episode in 2014. Endocrine Medical History: Denies: Diabetes Mellitus Type 1, Diabetes Mellitus Type 2, Hyperthyroidism, Hypothyroidism Renal/ Medical History: Reports: End Stage Renal Disease GI Medical History: Reports: Gastroesophageal Reflux Disease Denies: Cirrhosis, Hepatitis Musculoskeltal Medical History: Reports: Arthritis Skin Medical History: Denies: Eczema, Psoriasis Psychiatric Medical History: Denies: Depression Hematology: Reports: Anemia Infectious Medical History: Reports: HIV Past Surgical History Past Surgical History: Reports: Cardiac Catheterization, Coronary Stent, Hysterectomy, Valve Replacement - Dialysis catheter, Other - Hemodialysis catheter insertion. Social History Smoking Status: Former Smoker Frequency of Alcohol Use: None Hx Recreational Drug Use: No Drugs: None Hx Prescription Drug Abuse: No Family History Family History: Reviewed & Not Pertinent Parental Family History Reviewed: Yes Children Family History Reviewed: Yes Sibling(s) Family History Reviewed.: Yes Medication/Allergy Home Medications: Aa8/A-Carnit/Grap/[place]/Ndv954 [Gabadone Capsule] 1 cap PO Q8 06/15/17 Calcitriol 1 cap PO BID 06/15/17 Calcium Carbonate [Tums Chewable 500 mg Tab.chew] 1,000 mg PO BID 06/15/17 Clonazepam [Klonopin 2 mg Tablet] 2 mg PO BID 06/15/17 Efavirenz [Sustiva 600 Mg Tablet] 600 mg PO DAILY 06/15/17 Hydralazine HCl 100 mg PO Q12 06/15/17 Hydromorphone HCl [Dilaudid 2 mg Tablet] 2 mg PO Q6HP PRN 06/15/17 Labetalol HCl [Trandate] 300 mg PO Q12 06/15/17 Levetiracetam [Keppra 500 mg Tablet] 500 mg PO Q12 06/15/17 Minoxidil [Loniten 2.5 Mg Tablet] 2.5 mg PO Q12HP PRN 06/15/17 Ondansetron HCl [Zofran 4 mg Tablet] 1 tab PO Q4HP PRN 06/15/17 Pantoprazole Sodium [Protonix] 40 mg PO DAILY 06/15/17 Sevelamer HCl [Renagel 400 Mg Tablet] 800 mg PO AC 06/15/17 Allergies/Adverse Reactions: acetaminophen [From Percocet] Allergy (Verified 06/14/17 09:03) rash oxycodone HCl [From Percocet] Allergy (Verified 06/14/17 09:03) sulfamethoxazole [From Bactrim] Allergy (Verified 06/14/17 09:03) trimethoprim [From Bactrim] Allergy (Verified 06/14/17 09:03) alprazolam [From Xanax] Adverse Reaction (Verified 06/14/17 09:03) Hallucinations Review of Systems Cardiovascular: ABSENT: chest pain, dyspnea on exertion, edema, orthropnea, palpitations Respiratory: ABSENT: cough, dyspnea Gastrointestinal: PRESENT: nausea. ABSENT: abdominal pain, coffee ground emesis Physical Exam Vital Signs: Temp Pulse Resp BP Pulse Ox 14 133/80 H 99 06/15/17 08:01 06/15/17 08:01 06/15/17 08:01 General appearance: PRESENT: no acute distress, cooperative, well-developed, well-nourished Head exam: PRESENT: atraumatic, normocephalic Eye exam: PRESENT: conjunctiva pink, EOMI, PERRLA. ABSENT: scleral icterus Neck exam: ABSENT: carotid bruit, JVD, lymphadenopathy, thyromegaly Respiratory exam: PRESENT: crackles - mild bibasilar Cardiovascular exam: PRESENT: RRR. ABSENT: diastolic murmur, rubs, systolic murmur GI/Abdominal exam: PRESENT: normal bowel sounds, soft. ABSENT: distended, guarding, mass, organolmegaly, rebound, tenderness Neurological exam: PRESENT: alert, awake, oriented to time, oriented to situation, ataxia, CN II-XII grossly intact Psychiatric exam: PRESENT: appropriate affect, normal mood. ABSENT: homicidal ideation, suicidal ideation Skin exam: PRESENT: dry, intact, warm. ABSENT: cyanosis, rash Results Laboratory Results: Labs- All tests 24 hr 06/15/17 06/15/17 06/15/17 05:03 05:03 05:03 WBC 5.5 RBC 4.44 Hgb 11.2 L Hct 34.9 L MCV 79 L MCH 25.3 L MCHC 32.2 RDW 24.4 H Plt Count 152 Seg Neutrophils % 65.9 Lymphocytes % 14.4 Monocytes % 12.6 Eosinophils % 5.9 Basophils % 1.2 Absolute Neutrophils 3.6 Absolute Lymphocytes 0.8 Absolute Monocytes 0.7 Absolute Eosinophils 0.3 Absolute Basophils 0.1 Platelet Comment ADEQUATE Polychromasia 1+ Hypochromasia 1+ Poikilocytosis 3+ Anisocytosis 3+ Microcytosis SLIGHT Tear Drop Cells 1+ Ovalocytes 2+ Helmet Cells SLIGHT Clarissa Cells 2+ Acanthocytes (Spur) 1+ PT 14.0 INR 1.01 Sodium 137.0 Potassium 6.3 H* Chloride 98 Carbon Dioxide 19 L Anion Gap 20 H BUN 91 H Creatinine 12.61 H Est GFR ( Amer) 4 L Est GFR (Non-Af Amer) 3 L Glucose 103 Calcium 9.4 Total Bilirubin 0.6 Direct Bilirubin 0.6 H Indirect Bilirubin Not Reportable Neonat Total Bilirubin Not Reportable AST 20 ALT 18 Alkaline Phosphatase 97 Creatine Kinase 67 CK-MB (CK-2) Troponin I Total Protein 7.5 Albumin 4.3 06/15/17 05:03 WBC RBC Hgb Hct MCV MCH MCHC RDW Plt Count Seg Neutrophils % Lymphocytes % Monocytes % Eosinophils % Basophils % Absolute Neutrophils Absolute Lymphocytes Absolute Monocytes Absolute Eosinophils Absolute Basophils Platelet Comment Polychromasia Hypochromasia Poikilocytosis Anisocytosis Microcytosis Tear Drop Cells Ovalocytes Helmet Cells [place] Cells Acanthocytes (Spur) PT INR Sodium Potassium Chloride Carbon Dioxide Anion Gap BUN Creatinine Est GFR ( Amer) Est GFR (Non-Af Amer) Glucose Calcium Total Bilirubin Direct Bilirubin Indirect Bilirubin Neonat Total Bilirubin AST ALT Alkaline Phosphatase Creatine Kinase CK-MB (CK-2) 2.93 Troponin I < 0.012 Total Protein Albumin Impressions: Chest X-Ray 06/15/17 05:41 IMPRESSION: Mild mixed interstitial and airspace opacity appears less severe compared with prior available radiographs from 10/26/2016. Differential diagnosis includes mild CHF, mild pulmonary edema, and/or chronic interstitial lung disease. Assessment & Plan - Diagnosis (1) Hyperkalemia Plan: Hemodialysis planned for today. Anticipate discharge home in a.m. Recheck electrolytes. (2) End stage renal disease Plan: Continue HD Tues, Thurs, and Sat. (3) Anemia in chronic kidney disease Qualifiers: Chronic kidney disease stage: on chronic dialysis Qualified Code(s): N18.6 - End stage renal disease; D63.1 - Anemia in chronic kidney disease; Z99.2 - Dependence on renal dialysis Is this a current diagnosis for this admission?: Yes Plan: Epo vs transfuse as needed, per nephrology. (4) Hypertension Qualifiers: Hypertension type: essential hypertension Qualified Code(s): I10 - Essential (primary) hypertension Is this a current diagnosis for this admission?: Yes Plan: Continue antihypertensives. (5) HIV (human immunodeficiency virus infection) Plan: Continue anti-retrovirals. (6) Seizures Is this a current diagnosis for this admission?: Yes Plan: Continue AEDs - Time Time Spent: 50 to 70 Minutes Medications reviewed and adjusted accordingly: Yes Anticipated discharge: Home Within: within 24 hours - Inpatient Certification Based on my medical assessment, after consideration of the patient's comorbidities, presenting symptoms, or acuity I expect that the services needed warrant INPATIENT care.: No I certify that my determination is in accordance with my understanding of Medicare's requirements for reasonable and necessary INPATIENT services [42 CFR 412.3e].: No Medical Necessity: Failure to Improve With Outpatient Therapy, Significant Comorbidiites Make Outpatient Treatment Too Risky
[2017-06-15] MEDS ORDERED: SEVELAMER HCL 400 MG TABLET PO SCH (16:00)
--- NOTE | 2017-06-15 16:26 | PDOC DISCHARGE SUMMARY ---
General - Admit/Disc Date/PCP Admission Date/Primary Care Provider: 06/15/17 09:26 Discharge Date: 06/15/17 - Discharge Diagnosis (1) Hyperkalemia Is this a current diagnosis for this admission?: Yes (2) End stage renal disease Is this a current diagnosis for this admission?: Yes (3) Anemia in chronic kidney disease Is this a current diagnosis for this admission?: Yes (4) Hypertension Is this a current diagnosis for this admission?: Yes (5) HIV (human immunodeficiency virus infection) Is this a current diagnosis for this admission?: Yes (6) Seizures Is this a current diagnosis for this admission?: Yes - Additional Information Resuscitation Status: Full Code Discharge Diet: Regular - Renal Discharge Activity: Activity As Tolerated Home Medications: Aa8/A-Carnit/Grap/[place]/[id number] [Gabadone Capsule] 1 cap PO Q8 06/15/17 Calcitriol 1 cap PO BID 06/15/17 Calcium Carbonate [Tums Chewable 500 mg Tab.chew] 1,000 mg PO BID 06/15/17 Clonazepam [Klonopin 2 mg Tablet] 2 mg PO BID 06/15/17 Efavirenz [Sustiva 600 mg Tablet] 600 mg PO DAILY 06/15/17 Hydralazine HCl 100 mg PO Q12 06/15/17 Hydromorphone HCl [Dilaudid 2 mg Tablet] 2 mg PO Q6HP PRN 06/15/17 Labetalol HCl [Trandate] 300 mg PO Q12 06/15/17 Levetiracetam [Keppra 500 mg Tablet] 500 mg PO Q12 06/15/17 Minoxidil [Loniten 2.5 mg Tablet] 2.5 mg PO Q12HP PRN 06/15/17 Ondansetron HCl [Zofran 4 mg Tablet] 1 tab PO Q4HP PRN 06/15/17 Pantoprazole Sodium [Protonix] 40 mg PO DAILY 06/15/17 Sevelamer HCl [Renagel 400 mg Tablet] 800 mg PO AC 06/15/17 History of Present Illness History of Present Illness: HARVINDER GARCÍA is a 51 year old female with a history of HIV and end-stage renal disease who presented to the emergency department today seeking dialysis. She and her are from [facility]. They have been in [place] for several days. They came to visit his () father. According to her , they attempted to arrange dialysis before they left the [facility]. She normally undergoes hemodialysis Monday, , and Monday. Her last treatment was 5 days ago. According to her , "the paperwork was not sent" from their dialysis Center in [place] to one in [place]. Therefore, she has missed at least one treatment session. She were seen in the emergency department 2 days ago for weakness. At that time, her potassium was 5.6. She was not offered hemodialysis. They were going to go back to [place] today in order to undergo hemodialysis, but since she was not feeling well, the came here. Her potassium was 6.3 today. She does not report chest pain or significant shortness of breath. She is not edematous. She has not experienced seizures. She did report nausea but not vomiting. There has been no change in her mental status. Hospital Course Hospital Course: Ms. García was admitted mainly to undergo hemodialysis today. Dr Moody was consulted. She underwent hemodialysis. Hospital stay was uneventful. Physical Exam Vital Signs: Temp Pulse Resp BP Pulse Ox 82 19 121/73 96 06/15/17 14:00 06/15/17 11:00 06/15/17 10:01 06/15/17 11:00 Intake & Output 06/14/17 06/15/17 06/16/17 06:59 06:59 06:59 Weight 60.328 kg General appearance: PRESENT: no acute distress, cooperative, well-developed, well-nourished Head exam: PRESENT: atraumatic, normocephalic Eye exam: PRESENT: conjunctiva pink, EOMI, PERRLA. ABSENT: scleral icterus Respiratory exam: PRESENT: clear to auscultation dee, crackles - Mild bibasilar. ABSENT: rales, rhonchi, wheezes Cardiovascular exam: PRESENT: RRR. ABSENT: diastolic murmur, rubs, systolic murmur GI/Abdominal exam: PRESENT: normal bowel sounds, soft. ABSENT: distended, guarding, mass, organolmegaly, rebound, tenderness Neurological exam: PRESENT: alert, awake, oriented to person, oriented to place , oriented to time, oriented to situation, other - Intermittent myoclonic jerks Psychiatric exam: PRESENT: appropriate affect, normal mood. ABSENT: homicidal ideation, suicidal ideation Results Laboratory Results: 06/15/17 09:59 06/15/17 10:50 06/15/17 06/15/17 06/15/17 09:59 09:59 10:50 WBC 6.9 RBC 4.41 Hgb 11.1 L Hct 34.4 L MCV 78 L MCH 25.1 L MCHC 32.2 RDW 24.0 H Plt Count 172 Seg Neutrophils % 71.8 Lymphocytes % 10.6 L Monocytes % 12.2 Eosinophils % 4.4 Basophils % 1.0 Absolute Neutrophils 4.9 Absolute Lymphocytes 0.7 Absolute Monocytes 0.8 Absolute Eosinophils 0.3 Absolute Basophils 0.1 Potassium Cancelled 6.7 H* Impressions: Chest X-Ray 06/15/17 05:41 IMPRESSION: Mild mixed interstitial and airspace opacity appears less severe compared with prior available radiographs from 10/26/2016. Differential diagnosis includes mild CHF, mild pulmonary edema, and/or chronic interstitial lung disease. Plan Discharge Plan: She is traveling back to [facility] tomorrow, where she will resume hemodialysis June 17. Time Spent: Less than 30 Minutes
[2017-06-15] MEDS ORDERED: HYDRALAZINE HCL 50 MG TABLET PO ONE (16:30)
[2017-06-15] MEDS ORDERED: LABETALOL HCL 200 MG TABLET PO ONE (16:30)
[2017-06-15 17:04] VITALS: BP 159/86
[2017-06-15] MEDS ORDERED: CALCITRIOL 0.25 MCG CAPSULE PO SCH (18:00)
[2017-06-15] MEDS ORDERED: CALCIUM CARBONATE 500 MG TAB.CHEW PO SCH (18:00)
[2017-06-15] MEDS ORDERED: [UNRECOGNIZED DRUG - OTHER] PO SCH (22:00)
[2017-06-15] MEDS ORDERED: LABETALOL HCL 200 MG TABLET PO SCH (22:00)
[2017-06-15] MEDS ORDERED: LEVETIRACETAM 500 MG TABLET PO SCH (22:00)
[2017-06-15] MEDS ORDERED: HYDRALAZINE HCL 50 MG TABLET PO SCH (22:00)
== END 2017-06-15 17:29 | disposition home or self-care (01) ==
LOC: ER 04:41 → UNDOADMOB 08:03 → EH 08:03 → 3S 11:15
PROVIDERS: ADMIT Internal Medicine; ATTEND Internal Medicine
PROC: 5A1D00Z (ICD-10-PCS; principal; 2017-06-15)
DX: E87.5 Hyperkalemia (principal); I12.0 Hypertensive chronic kidney disease with stage 5 chronic kidney disease or end stage renal disease; N18.6 End stage renal disease; D63.1 Anemia in chronic kidney disease; B20 Human immunodeficiency virus [HIV] disease; R56.9 Unspecified convulsions; Z79.899 Other long term (current) drug therapy; I25.10 Atherosclerotic heart disease of native coronary artery without angina pectoris; I25.2 Old myocardial infarction; K21.9 Gastro-esophageal reflux disease without esophagitis; Z95.5 Presence of coronary angioplasty implant and graft; Z95.2 Presence of prosthetic heart valve; Z99.2 Dependence on renal dialysis; Z87.891 Personal history of nicotine dependence
CPT/HCPCS: 93005; 94640; 99291; 96374; 96375; 36415; 82553; 82550; 84132; 85025; 85610; 85730; 80053; 84484; 71010; 93010; A9270 ×9; J0610; J3490 ×2; J1644; G0257; J1815

== ENCOUNTER 2017-07-23 16:45 | Emergency (ER) | payer MEDICARE, OTHER ==
--- NOTE | 2017-07-23 17:41 | ER Document Report ---
ED Medical Screen (RME) - General Chief Complaint: Back Pain Stated Complaint: BACK PAIN Time Seen by Provider: 07/23/17 17:30 Notes: This 51-year-old female patient comes emergency room complaining of left lumbar back pain. She states she fell against a fireplace last night at her father-in- law's house. She reports holding onto her walker and losing her balance and falling. She states last time she lost her balance like that she had tubes put in her ears, that was 8 months ago and she still has the tubes in her ears. When I asked her if she went to dialysis yesterday, she stated she did not go because she was hurting too much. When I pointed out that the fall was yesterday evening, then she stated the fall yesterday evening was the second time she fell. The story seems to be fluid. She does come here frequently for dialysis related problems, mostly because she does not coordinate with the dialysis center here in [place], she lives in [place], she seems to come here several weekends throughout the year to visit and frequently ends up in the emergency room. I have greeted and performed a rapid initial assessment of this patient. A comprehensive ED assessment and evaluation of the patient, analysis of test results and completion of the medical decision making process will be conducted by additional ED providers. TRAVEL OUTSIDE OF THE [place] IN LAST 30 DAYS: No - Related Data Allergies/Adverse Reactions: acetaminophen [From Percocet] Allergy (Verified 07/23/17 16:53) rash oxycodone HCl [From Percocet] Allergy (Verified 07/23/17 16:53) sulfamethoxazole [From Bactrim] Allergy (Verified 07/23/17 16:53) trimethoprim [From Bactrim] Allergy (Verified 07/23/17 16:53) alprazolam [From Xanax] Adverse Reaction (Verified 07/23/17 16:53) Hallucinations Past Medical History - Social History Chew tobacco use (# tins/day): No Frequency of alcohol use: None Drug Abuse: None - Past Medical History Cardiac Medical History: Reports: Hx Coronary Artery Disease, Hx Heart Attack, Hx Hypertension Denies: Hx DVT, Hx Hypercholesterolemia, Hx Pulmonary Embolism Pulmonary Medical History: Reports: Hx Asthma Neurological Medical History: Reports: Hx Cerebrovascular Accident, Hx Seizures - Last episode in 2014. Endocrine Medical History: Denies: Hx Diabetes Mellitus Type 1, Hx Diabetes Mellitus Type 2, Hx Hyperthyroidism, Hx Hypothyroidism Renal/ Medical History: Reports: Hx End Stage Renal Disease. Denies: Hx Peritoneal Dialysis GI Medical History: Reports: Hx Gastroesophageal Reflux Disease. Denies: Hx Cirrhosis, Hx Hepatitis Musculoskeltal Medical History: Reports Hx Arthritis, Reports Hx Musculoskeletal Deformity Skin Medical History: Denies Hx Eczema, Denies Hx Psoriasis Psychiatric Medical History: Denies: Hx Depression Infectious Medical History: Reports: Hx HIV. Denies: Hx Hepatitis Past Surgical History: Reports: Hx Cardiac Catheterization, Hx Coronary Stent, Hx Hysterectomy, Hx Valve Replacement - Dialysis catheter, Other - Hemodialysis catheter insertion. - Immunizations Immunizations up to date: No Hx Diphtheria, Pertussis, Tetanus Vaccination: Yes Physical Exam - Vital signs Vitals: Temp Pulse Resp BP Pulse Ox 97.8 F 78 20 167/74 H 100 07/23/17 16:54 07/23/17 16:54 07/23/17 16:54 07/23/17 16:54 07/23/17 16:54 Course - Vital Signs Vital signs: Temp Pulse Resp BP Pulse Ox 97.8 F 78 20 167/74 H 100 07/23/17 16:54 07/23/17 16:54 07/23/17 16:54 07/23/17 16:54 07/23/17 16:54
[2017-07-23 18:07] LABS: ABSOLUTE BASOPHILS # (AUTO) 0.1 10^3/uL (0.0-0.2); ABSOLUTE EOSINOPHILS # (AUTO) 0.3 10^3/uL (0.0-0.6); ABSOLUTE LYMPHOCYTES (AUTO) 0.5 10^3/uL (0.5-4.7); ABSOLUTE MONOCYTES (AUTO) 0.4 10^3/uL (0.1-1.4); EOSINOPHILS % (AUTO) 9.1 % (0-6); HEMATOCRIT 35.9 % (36.0-47.0); HEMOGLOBIN 11.4 g/dL (12.0-15.5); HGB HCT DIFFERENCE -1.7; LYMPHOCYTES % (AUTO) 16.2 % (13-45); MEAN CORPUSCULAR HEMOGLOBIN 25.2 pg (27.0-33.4); MEAN CORPUSCULAR HGB CONC 31.8 g/dL (32.0-36.0); MEAN CORPUSCULAR VOLUME 79 fl (80-97); MONOCYTES % (AUTO) 12.3 % (3-13); RED BLOOD COUNT 4.53 10^6/uL (3.72-5.28); RED CELL DISTRIBUTION WIDTH 20.5 % (11.5-14.0); SEGMENTED NEUTROPHILS % (AUTO) 60.4 % (42-78); WHITE BLOOD COUNT 3.3 10^3/uL (4.0-10.5)
--- NOTE | 2017-07-23 18:24 | RADIOLOGY REPORT (SQ) ---
EXAM DESCRIPTION: L SPINE WHOLE COMPLETED DATE/TIME: 07/23/2017 6:08 pm REASON FOR STUDY: fell against fireplace, Left LBP COMPARISON: None. NUMBER OF VIEWS: Five views including obliques. TECHNIQUE: AP, lateral, oblique, and sacral radiographic images acquired of the lumbar spine. LIMITATIONS: None. FINDINGS: MINERALIZATION: Normal. SEGMENTATION: Normal. No transitional anatomy. ALIGNMENT: Normal. VERTEBRAE: Maintained height. No fracture or worrisome bone lesion. DISCS: Preserved height. No significant osteophytes or end plate irregularity. POSTERIOR ELEMENTS: Pedicles and facets are intact. No pars defect or posterior arch defects. HARDWARE: None in the spine. PARASPINAL SOFT TISSUES: Normal. PELVIS: Intact as visualized. No fractures or worrisome bone lesions. SI joints intact. OTHER: No other significant finding. IMPRESSION: NORMAL 5 VIEW LUMBAR SPINE. TECHNICAL DOCUMENTATION: JOB ID: [id number] [employer]- All Rights Reserved
[2017-07-23 18:29] LABS: ALANINE AMINOTRANSFERASE 21 U/L (9-52); ALKALINE PHOSPHATASE 101 U/L (38-126); ANION GAP 19 (5-19); ASPARTATE AMINO TRANSFERASE 20 U/L (14-36); BILIRUBIN,DIRECT 0.5 mg/dL (0.0-0.4); BILIRUBIN,TOTAL 0.5 mg/dL (0.2-1.3); BLOOD UREA NITROGEN 67 mg/dL (7-20); CALCIUM 9.1 mg/dL (8.4-10.2); CARBON DIOXIDE 20 mmol/L (22-30); CHLORIDE 101 mmol/L (98-107); CREATININE RESULT 10.33 mg/dL (0.52-1.25); GLUCOSE 105 mg/dL (75-110); POTASSIUM 5.6 mmol/L (3.6-5.0); TOTAL PROTEIN 7.3 g/dL (6.3-8.2)
--- NOTE | 2017-07-23 18:53 | ER Document Report ---
ED Neck/Back Problem - General Chief Complaint: Back Pain Stated Complaint: BACK PAIN Time Seen by Provider: 07/23/17 17:30 Notes: Patient is a 51-year-old female, past medical history ESRD, unsteady gait, presents after a fall onto her back. She has had several episodes of these falls in the past. She walks with a walker. She denies change in bowel or bladder, saddle anesthesia, fevers, numbness, tingling, head injury, chest pain or shortness of breath. TRAVEL OUTSIDE OF THE [place] IN LAST 30 DAYS: No - Related Data Allergies/Adverse Reactions: acetaminophen [From Percocet] Allergy (Verified 07/23/17 16:53) rash oxycodone HCl [From Percocet] Allergy (Verified 07/23/17 16:53) sulfamethoxazole [From Bactrim] Allergy (Verified 07/23/17 16:53) trimethoprim [From Bactrim] Allergy (Verified 07/23/17 16:53) alprazolam [From Xanax] Adverse Reaction (Verified 07/23/17 16:53) Hallucinations Past Medical History - General Information source: Patient - Social History Smoking Status: Never Smoker Chew tobacco use (# tins/day): No Frequency of alcohol use: None Drug Abuse: None Family History: Reviewed & Not Pertinent - Past Medical History Cardiac Medical History: Reports: Hx Coronary Artery Disease, Hx Heart Attack, Hx Hypertension Denies: Hx DVT, Hx Hypercholesterolemia, Hx Pulmonary Embolism Pulmonary Medical History: Reports: Hx Asthma Neurological Medical History: Reports: Hx Cerebrovascular Accident, Hx Seizures - Last episode in 2014. Endocrine Medical History: Denies: Hx Diabetes Mellitus Type 1, Hx Diabetes Mellitus Type 2, Hx Hyperthyroidism, Hx Hypothyroidism Renal/ Medical History: Reports: Hx End Stage Renal Disease. Denies: Hx Peritoneal Dialysis GI Medical History: Reports: Hx Gastroesophageal Reflux Disease. Denies: Hx Cirrhosis, Hx Hepatitis Musculoskeltal Medical History: Reports Hx Arthritis, Reports Hx Musculoskeletal Deformity Skin Medical History: Denies Hx Eczema, Denies Hx Psoriasis Psychiatric Medical History: Denies: Hx Depression Infectious Medical History: Reports: Hx HIV. Denies: Hx Hepatitis Past Surgical History: Reports: Hx Cardiac Catheterization, Hx Coronary Stent, Hx Hysterectomy, Hx Valve Replacement - Dialysis catheter, Other - Hemodialysis catheter insertion. - Immunizations Immunizations up to date: No Hx Diphtheria, Pertussis, Tetanus Vaccination: Yes Review of Systems - Review of Systems Notes: REVIEW OF SYSTEMS: CONSTITUTIONAL: -fevers, -chills EENT: -eye pain, -difficulty swallowing, -nasal congestion CARDIOVASCULAR:-chest pain, -syncope. RESPIRATORY: -cough, -SOB GASTROINTESTINAL: -abdominal pain, - nausea, -vomiting, -diarrhea MUSCULOSKELETAL: +back pain, -neck pain SKIN: -rash or skin lesions. HEMATOLOGIC: -easy bruising or bleeding. LYMPHATIC: -swollen, enlarged glands. NEUROLOGICAL: -altered mental status or loss of consciousness, -headache, - neurologic symptoms PSYCHIATRIC: -anxiety, -depression. ALL OTHER SYSTEMS REVIEWED AND NEGATIVE. Physical Exam - Vital signs Vitals: Temp Pulse Resp BP Pulse Ox 97.8 F 78 20 167/74 H 100 07/23/17 16:54 07/23/17 16:54 07/23/17 16:54 07/23/17 16:54 07/23/17 16:54 - Notes Notes: PHYSICAL EXAMINATION: GENERAL: Well-appearing, well-nourished and in no acute distress. HEAD: Atraumatic, normocephalic. EYES: Pupils equal round and reactive to light, extraocular movements intact, sclera anicteric, conjunctiva are normal. ENT: nares patent, oropharynx clear without exudates. Moist mucous membranes. NECK: Normal range of motion, supple without lymphadenopathy LUNGS: Breath sounds clear to auscultation bilaterally and equal. No wheezes rales or rhonchi. HEART: Regular rate and rhythm without murmurs ABDOMEN: Soft, nontender, normoactive bowel sounds. No guarding, no rebound. No masses appreciated. EXTREMITIES: Normal range of motion, no pitting or edema. No cyanosis. BACK: No midline tenderness. Mild tenderness over left mower back. No signs of trauma. NEUROLOGICAL: Cranial nerves grossly intact. Normal speech, normal gait. Normal sensory and motor exams. PSYCH: Normal mood, normal affect. SKIN: Warm, Dry, normal turgor, no rashes or lesions noted. Course - Re-evaluation Re-evalutation: Patient with fall from standing and left lower back pain. No midline tenderness. No red flag signs for low back pain. X-ray ordered from triage does not show any acute abnormalities. Her potassium is 5.6 and she has dialysis in the morning. Will send patient home with lidocaine patch and heat pads due to back contusion follow-up at her primary care physician. - Vital Signs Vital signs: Temp Pulse Resp BP Pulse Ox 97.8 F 75 16 196/90 H 95 07/23/17 16:54 07/23/17 19:38 07/23/17 19:38 07/23/17 19:38 07/23/17 19:38 - Laboratory Result Diagrams: 07/23/17 17:40 07/23/17 17:40 Laboratory results interpreted by me: 07/23/17 07/23/17 17:40 17:40 WBC 3.3 L Hgb 11.4 L Hct 35.9 L MCV 79 L MCH 25.2 L MCHC 31.8 L RDW 20.5 H Plt Count 108 L Eosinophils % 9.1 H Potassium 5.6 H Carbon Dioxide 20 L BUN 67 H Creatinine 10.33 H Est GFR ( Amer) 5 L Est GFR (Non-Af Amer) 4 L Direct Bilirubin 0.5 H - Diagnostic Test Radiology reviewed: Image reviewed, Reports reviewed Radiology results interpreted by me: Lumbar x-ray: NAD Discharge - Discharge Clinical Impression: Contusion, back Qualifiers: Encounter type: initial encounter Laterality: left Qualified Code(s): S20.222A - Contusion of left back wall of thorax, initial encounter Condition: Stable Disposition: HOME, SELF-CARE Additional Instructions: Contusion Your injury has resulted in a contusion -- a crushing of the deep tissues. No injury to important structures was detected during the physician's exam. Contusions vary in the amount of pain they cause, and in the length of time required for healing. Typically, the area will become bruised, and will remain painful to touch for two or three weeks. However, most patients are back to working and playing within a few days. After the initial period of rest and cold-packs, your symptoms (together with the doctor's recommendations) will determine how rapidly you can get back to full activity. Usually this means "do what feels okay, but don't do things that hurt." If re-examination was recommended, it's important to follow up as instructed. Call the doctor or return any time if pain increases, if swelling becomes severe, if you develop numbness or weakness in an injured extremity, or if any other alarming symptoms occur. LOW BACK PAIN: Three out of every four people will have an episode of disabling back pain during their lifetime. Most commonly the pain is due to straining of the muscles and ligaments in the low back. Usual treatment includes: (1) Rest on a firm surface. Avoid lying on your stomach. (2) Ice pack the painful area. After a few days, gentle heat may be used intermittently to relax the area, or ice packs can be continued. (3) Medication may be needed -- muscle relaxers and antiinflammatory medicines are commonly used. (4) As the back improves, exercises are prescribed to strengthen the back and abdominal muscles. Your doctor will advise you on the proper care for your back at each stage in your recovery. You may be better in a few days -- or healing may take several weeks. If new symptoms of a "herniated disc" (radiation of pain, numbness, or tingling down the back of the leg or weakness in the leg) occur, you should be re-examined. Further testing may be necessary. ICE PACKS: Apply ice packs frequently against the painful area. Many different schedules are recommended, such as "20 minutes on, 20 minutes off" or "one hour ice, two hours rest." If you need to work, you may need to go longer between ice treatments. You should plan to have the area ice packed AT LEAST one fourth of the time. The ice should be applied over the wrap, tape, or splint, or over a layer of cloth -- not directly against the skin. Some ice bags have a built-in cloth and can be put directly on the skin. WARM PACKS: After approximately two days, apply gentle heat (such as a heating pad or hot water bottle) for about 20 to 30 minutes about every two hours -- at least four times daily. Warmth and elevation will help you make a more rapid recovery , and will ease the pain considerably. Do not use HOT heat, and never apply heat for longer than 30 minutes. The continuous heat can invisibly damage skin and muscles -- even when no burn is seen on the surface. Damaged muscles can make you MORE sore. FOLLOW-UP CARE: If you have been referred to a physician for follow-up care, call the physician s office for an appointment as you were instructed or within the next two days. If you experience worsening or a significant change in your symptoms, notify the physician immediately or return to the Emergency Department at any time for re-evaluation. Prescriptions: Lidocaine [Lidoderm 5% (700 mg) Transdermal Patch] 1 patch TP DAILY #10 adh..patch
[2017-07-23] MEDS ORDERED: LIDOCAINE 5% (700 MG) TRANSDERMAL ADH..PATCH TP ONE (19:02)
[2017-07-23 19:38] VITALS: BP 196/90
--- NOTE | 2017-07-23 20:33 | EKG REPORT ---
SEVERITY:- BORDERLINE ECG - SINUS RHYTHM BORDERLINE R WAVE PROGRESSION, ANTERIOR LEADS : Confirmed by: Lizzy Santana MD 23-Jul-2017 20:32:04
== END 2017-07-23 19:38 | disposition home or self-care (01) ==
LOC: ER 16:45
DX: S20.222A Contusion of left back wall of thorax, initial encounter (principal); M54.9 Dorsalgia, unspecified; N18.6 End stage renal disease; W19.XXXA Unspecified fall, initial encounter; Z91.81 History of falling
CPT/HCPCS: 36415; 72110; 80053; 85025; 93005; 93010; 99284

== ENCOUNTER 2018-09-07 20:58 | Emergency (ER) | payer MEDICARE, OTHER ==
[2018-09-07 22:26] LABS: HEMATOCRIT 28.6 % (36.0-47.0); HEMOGLOBIN 9.2 g/dL (12.0-15.5); MEAN CORPUSCULAR HEMOGLOBIN 23.7 pg (27.0-33.4); MEAN CORPUSCULAR HGB CONC 32.2 g/dL (32.0-36.0); MEAN CORPUSCULAR VOLUME 73 fl (80-97); PLATELET COUNT 146 10^3/uL (150-450); RED BLOOD COUNT 3.89 10^6/uL (3.72-5.28); RED CELL DISTRIBUTION WIDTH 21.6 % (11.5-14.0)
[2018-09-07 22:39] LABS: BLOOD UREA NITROGEN 87 mg/dL (7-20); CALCIUM 10.6 mg/dL (8.4-10.2); GLUCOSE 125 mg/dL (75-110); POTASSIUM 5.2 mmol/L (3.6-5.0)
[2018-09-07 22:45] LABS: CARBON DIOXIDE 21 mmol/L (22-30); CHLORIDE 97 mmol/L (98-107); SODIUM 140.2 mmol/L (137-145)
[2018-09-07 22:46] LABS: ANION GAP 22 (5-19)
--- NOTE | 2018-09-07 22:46 | RADIOLOGY REPORT (SQ) ---
XR CHEST 1 VIEW HISTORY: sob. COMPARISON: 06/15/2017 FINDINGS: Right hemodialysis catheter is stable. Heart size is normal. Interval resolution of the bilateral interstitial and airspace opacities. No pleural effusion or pneumothorax is identified. IMPRESSION: No acute cardiopulmonary abnormality.
--- NOTE | 2018-09-07 23:05 | ER Document Report ---
ED General - General Chief Complaint: Chest Tightness Stated Complaint: CHEST PAIN, COUGH Time Seen by Provider: 09/07/18 21:51 Notes: Patient is a 52-year-old female with a past medical history of end-stage renal disease with dialysis dependence who presents complaining of diffuse musculoskeletal discomfort, cough, and feeling like she needs dialysis. The patient does receive dialysis in [place] on Monday, and Monday. She missed her dialysis session, stating that she is here helping to take care of her [id number]. She does admit to a long-standing history of dialysis noncompliance. She states that her muscle aches are described as an aching, diffuse body pain. Nothing improves or worsens that pain. She states that she often has these symptoms when she misses dialysis. She did not make any arrangements to receive dialysis while here in [place]. She denies any focal weakness, numbness, syncope or confusion. States that she has had intermittent chest discomfort. Denies any ongoing chest pain or shortness of breath at this time. Nothing improves or worsens her symptoms. TRAVEL OUTSIDE OF THE [place] IN LAST 30 DAYS: No - Related Data Allergies/Adverse Reactions: acetaminophen [From Percocet] Allergy (Verified 07/23/17 16:53) rash oxycodone HCl [From Percocet] Allergy (Verified 07/23/17 16:53) sulfamethoxazole [From Bactrim] Allergy (Verified 07/23/17 16:53) trimethoprim [From Bactrim] Allergy (Verified 07/23/17 16:53) alprazolam [From Xanax] Adverse Reaction (Verified 07/23/17 16:53) Hallucinations Past Medical History - General Information source: Patient - Social History Smoking Status: Never Smoker Frequency of alcohol use: None Drug Abuse: None Lives with: Family Family History: Reviewed & Not Pertinent Patient has suicidal ideation: No Patient has homicidal ideation: No - Past Medical History Cardiac Medical History: Reports: Hx Coronary Artery Disease, Hx Heart Attack, Hx Hypertension Denies: Hx DVT, Hx Hypercholesterolemia, Hx Pulmonary Embolism Pulmonary Medical History: Reports: Hx Asthma Neurological Medical History: Reports: Hx Cerebrovascular Accident, Hx Seizures - Last episode in 2014. Endocrine Medical History: Denies: Hx Diabetes Mellitus Type 1, Hx Diabetes Mellitus Type 2, Hx Hyperthyroidism, Hx Hypothyroidism Renal/ Medical History: Reports: Hx End Stage Renal Disease. Denies: Hx Peritoneal Dialysis GI Medical History: Reports: Hx Gastroesophageal Reflux Disease. Denies: Hx Cirrhosis, Hx Hepatitis Musculoskeletal Medical History: Reports Hx Arthritis, Reports Hx Musculoskeletal Deformity Skin Medical History: Denies Hx Eczema, Denies Hx Psoriasis Psychiatric Medical History: Denies: Hx Depression Infectious Medical History: Reports: Hx HIV. Denies: Hx Hepatitis Past Surgical History: Reports: Hx Cardiac Catheterization, Hx Coronary Stent, Hx Hysterectomy, Hx Valve Replacement - Dialysis catheter, Other - Hemodialysis catheter insertion. - Immunizations Immunizations up to date: No Hx Diphtheria, Pertussis, Tetanus Vaccination: Yes Review of Systems - Review of Systems Notes: Constitutional: Negative for fever. HENT: Negative for sore throat. Eyes: Negative for visual changes. Cardiovascular: Positive for chest pain. Respiratory: Positive for intermittent cough Gastrointestinal: Negative for abdominal pain, vomiting or diarrhea. Genitourinary: Negative for dysuria. Musculoskeletal: Positive for diffuse musculoskeletal pain Skin: Negative for rash. Neurological: Negative for headaches, weakness or numbness. 10 point ROS negative except as marked above and in HPI. Physical Exam - Vital signs Vitals: Temp Pulse Resp BP Pulse Ox 97.7 F 79 16 144/72 H 97 09/07/18 21:03 09/07/18 21:03 09/07/18 21:03 09/07/18 21:03 09/07/18 21:03 Interpretation: Hypertensive Notes: PHYSICAL EXAMINATION: GENERAL: Well-appearing, well-nourished and in no acute distress. HEAD: Atraumatic, normocephalic. EYES: Pupils equal round and reactive to light, extraocular movements intact, sclera anicteric, conjunctiva are normal. ENT: nares patent, oropharynx clear without exudates. Moist mucous membranes. NECK: Normal range of motion, supple without lymphadenopathy LUNGS: Breath sounds clear to auscultation bilaterally and equal. No wheezes rales or rhonchi. HEART: Regular rate and rhythm without murmurs ABDOMEN: Soft, nontender, normoactive bowel sounds. No guarding, no rebound. No masses appreciated. EXTREMITIES: Normal range of motion, no pitting or edema. No cyanosis. NEUROLOGICAL: No focal neurological deficits. Moves all extremities spontaneously and on command. PSYCH: Normal mood, normal affect. SKIN: Warm, Dry, normal turgor, no rashes or lesions noted. Course - Re-evaluation Re-evalutation: 09/07/18 23:05 Patient presents with complaints of musculoskeletal discomfort and feeling like she needs dialysis. She did miss her dialysis as she is visiting from out of town. Patient has very mild hyperkalemia at 5.2, chest x-ray without evidence of pulmonary edema, pulse ox 99-100% on room air. She is awake, alert , oriented, does not meet any criteria for emergency dialysis at this time. I have explained this to the patient, advised that she get dialysis as an outpatient tomorrow as scheduled at her normal clinic in [place] or alternatively try to see if [facility] can dialyze her locally. At this time will discharge with return precautions and follow-up recommendations. Verbal discharge instructions given a the bedside and opportunity for questions given. Patient is in agreement with this plan and has verbalized understanding of return precautions and the need for dialysis tomorrow. - Vital Signs Vital signs: Temp Pulse Resp BP Pulse Ox 97.7 F 79 14 156/78 H 98 09/07/18 21:03 09/07/18 21:03 09/07/18 23:00 09/07/18 21:44 09/07/18 23:00 - Laboratory Result Diagrams: 09/07/18 22:10 09/07/18 22:10 Laboratory results interpreted by me: 09/07/18 09/07/18 22:10 22:10 Hgb 9.2 L Hct 28.6 L MCV 73 L MCH 23.7 L RDW 21.6 H Plt Count 146 L Potassium 5.2 H Chloride 97 L Carbon Dioxide 21 L Anion Gap 22 H BUN 87 H Creatinine 11.96 H Est GFR ( Amer) 4 L Est GFR (Non-Af Amer) 3 L Glucose 125 H Calcium 10.6 H - Diagnostic Test Radiology reviewed: Image reviewed, Reports reviewed Radiology results interpreted by me: 09/07/18 23:06 Chest x-ray: No acute infiltrate or pulmonary edema - EKG Interpretation by Me Additional EKG results interpreted by me: 09/07/18 23:06 Sinus rhythm, rate 78. No ST elevations or depressions. LVH. QTC 465. Discharge - Discharge Clinical Impression: End stage renal disease on dialysis, Dialysis patient, noncompliant Condition: Good Disposition: HOME, SELF-CARE Additional Instructions: You do not meet criteria for emergency dialysis today. As we discussed, it is very important in your responsibility to ensure that you set up dialysis when you are traveling. I encourage you to contact [facility] in the morning first thing to see if they are able to schedule in for dialysis tomorrow. If they are unable to do so I would advise that she return to [place] where you normally have dialysis. If alternatively you cannot do this I would advise that you return to get this emergency department or a different emergency department for recheck of your labs to see if you then meet emergency criteria.
[2018-09-07 23:34] VITALS: BP 156/78
--- NOTE | 2018-09-08 09:26 | EKG REPORT ---
SEVERITY:- ABNORMAL ECG - SINUS RHYTHM LEFT ATRIAL ABNORMALITY LEFT VENTRICULAR HYPERTROPHY : Confirmed by: Alejandra Yang 08-Sep-2018 09:25:27
== END 2018-09-07 23:47 | disposition home or self-care (01) ==
LOC: ER 20:58
DX: I12.0 Hypertensive chronic kidney disease with stage 5 chronic kidney disease or end stage renal disease (principal); N18.6 End stage renal disease; Z99.2 Dependence on renal dialysis; Z91.15 Patient's noncompliance with renal dialysis; R07.9 Chest pain, unspecified; R05 Cough; I25.10 Atherosclerotic heart disease of native coronary artery without angina pectoris; J45.909 Unspecified asthma, uncomplicated
CPT/HCPCS: 36415; 71045; 80048; 84484; 85027; 93005; 93010; 99285

== ENCOUNTER 2018-09-08 11:19 | Emergency (ER) | payer MEDICARE, OTHER ==
[2018-09-08] MEDS ORDERED: FENTANYL CITRATE INJ/PF 100 MCG/2 ML AMPUL IV ONE (12:43)
--- NOTE | 2018-09-08 12:44 | ER Document Report ---
ED General - General Chief Complaint: Abnormal Lab Results Stated Complaint: ABNORMAL LABS Time Seen by Provider: 09/08/18 11:52 Notes: This is a 52-year-old female. History of dialysis. Here visiting from out of town. Has not had dialysis since September 04 here for evaluation of potassium. Asymptomatic with the exception of cough which she has had for about 2 months. No other issues. Now complaining of pain all over. Patient states that she gets this way whenever she has not had dialysis. States that she needs some Dilaudid. Makes urine about twice a day. TRAVEL OUTSIDE OF THE [place] IN LAST 30 DAYS: No - HPI Onset/Duration: Gradual Quality of pain: Achy Severity: Moderate - Related Data Allergies/Adverse Reactions: acetaminophen [From Percocet] Allergy (Verified 09/08/18 11:21) rash oxycodone HCl [From Percocet] Allergy (Verified 09/08/18 11:21) sulfamethoxazole [From Bactrim] Allergy (Verified 09/08/18 11:21) trimethoprim [From Bactrim] Allergy (Verified 09/08/18 11:21) alprazolam [From Xanax] Adverse Reaction (Verified 09/08/18 11:21) Hallucinations Past Medical History - General Information source: Patient, Relative - Social History Smoking Status: Never Smoker Frequency of alcohol use: None Drug Abuse: None Lives with: Spouse/Significant other Family History: Reviewed & Not Pertinent Patient has suicidal ideation: No Patient has homicidal ideation: No - Past Medical History Cardiac Medical History: Reports: Hx Coronary Artery Disease, Hx Heart Attack, Hx Hypertension Denies: Hx DVT, Hx Hypercholesterolemia, Hx Pulmonary Embolism Pulmonary Medical History: Reports: Hx Asthma Neurological Medical History: Reports: Hx Cerebrovascular Accident, Hx Seizures - Last episode in 2014. Endocrine Medical History: Denies: Hx Diabetes Mellitus Type 1, Hx Diabetes Mellitus Type 2, Hx Hyperthyroidism, Hx Hypothyroidism Renal/ Medical History: Reports: Hx End Stage Renal Disease - Hemodialysis. Denies: Hx Peritoneal Dialysis - Hemodialysis GI Medical History: Reports: Hx Gastroesophageal Reflux Disease. Denies: Hx Cirrhosis, Hx Hepatitis Musculoskeletal Medical History: Reports Hx Arthritis, Reports Hx Musculoskeletal Deformity Skin Medical History: Denies Hx Eczema, Denies Hx Psoriasis Psychiatric Medical History: Denies: Hx Depression Infectious Medical History: Reports: Hx HIV. Denies: Hx Hepatitis Past Surgical History: Reports: Hx Cardiac Catheterization, Hx Coronary Stent, Hx Hysterectomy, Hx Valve Replacement - Dialysis catheter, Other - Hemodialysis catheter insertion. - Immunizations Immunizations up to date: No Hx Diphtheria, Pertussis, Tetanus Vaccination: Yes Review of Systems - Review of Systems Notes: Constitutional: denies: Chills, Diaphoresis, Fever, Malaise, Weakness EENT: denies: Eye discharge, Blurred vision, Tearing, Double vision, Nose congestion, Nose discharge, Throat swelling, Mouth pain Cardiovascular: denies: Palpitations, Heart racing, Orthopnea, Dyspnea, Chest pain Respiratory: denies: Hurts to breathe, Wheezing, Shortness of breath. complaining of cough Gastrointestinal: denies: Abdominal pain, Diarrhea, Nausea, Vomiting, Black stools, bright red blood in stool Genitourinary: denies: Burning, Dysuria, Discharge, Frequency, Flank pain, Hematuria Musculoskeletal: denies: Joint pain, Joint swelling, Muscle pain, Muscle stiffness, back pain does complain of diffuse myalgias Hematologic/Lymphatic: denies: Anemia, Easy bleeding, Easy bruising, Blood clots Neurological/Psychological: denies: Confusion, Dementia, Depression, Loss of consciousness Skin: No lesions, no masses, no skin breakdown, no abscesses Physical Exam - Vital signs Vitals: Temp Pulse Resp BP Pulse Ox 97.4 F 90 18 171/87 H 96 09/08/18 11:23 09/08/18 11:23 09/08/18 11:23 09/08/18 11:23 09/08/18 11:23 Interpretation: Normal - General General appearance: Appears well, Alert - HEENT Head: Normocephalic, Atraumatic Eyes: Normal Pupils: PERRL - Respiratory Respiratory status: No respiratory distress Chest status: Nontender Breath sounds: Normal Chest palpation: Normal - Cardiovascular Rhythm: Regular Heart sounds: Normal auscultation Murmur: No - Abdominal Inspection: Normal Distension: No distension Bowel sounds: Normal Tenderness: Nontender Organomegaly: No organomegaly - Back Back: Normal, Nontender - Extremities General upper extremity: Normal inspection, Nontender, Normal color, Normal ROM , Normal temperature, Other General lower extremity: Normal inspection, Nontender, Normal color, Normal ROM , Normal temperature, Normal weight bearing. No: Philomena's sign - Neurological Neuro grossly intact: Yes Cognition: Normal Orientation: AAOx4 [place] Coma Scale Eye Opening: Spontaneous [place] Coma Scale Verbal: Oriented [place] Coma Scale Motor: Obeys Commands [place] Coma Scale Total: 15 Speech: Normal Motor strength normal: LUE, RUE, LLE, RLE Sensory: Normal - Psychological Associated symptoms: Normal affect, Normal mood - Skin Skin Temperature: Warm Skin Moisture: Dry Skin Color: Normal Course - Re-evaluation Re-evalutation: 09/08/18 15:07 Laboratory 09/08/18 09/08/18 11:40 11:40 WBC 7.8 RBC 3.92 Hgb 9.4 L Hct 29.1 L MCV 74 L MCH 23.9 L MCHC 32.2 RDW 22.0 H Plt Count 143 L Seg Neutrophils % 69.4 Lymphocytes % 15.6 Monocytes % 8.7 Eosinophils % 5.1 Basophils % 1.2 Absolute Neutrophils 5.4 Absolute Lymphocytes 1.2 Absolute Monocytes 0.7 Absolute Eosinophils 0.4 Absolute Basophils 0.1 Sodium 140.5 Potassium 5.5 H Chloride 97 L Carbon Dioxide 22 Anion Gap 21 H BUN 100 H Creatinine 13.00 H Est GFR ( Amer) 4 L Est GFR (Non-Af Amer) 3 L Glucose 118 H Calcium 10.4 H Total Bilirubin 1.0 Direct Bilirubin 1.0 H Neonat Total Bilirubin Not Reportable Neonat Direct Bilirubin Not Reportable Neonat Indirect Bili Not Reportable AST 25 ALT 15 Alkaline Phosphatase 121 Total Protein 7.7 Albumin 3.9 09/08/18 15:07 Patient has potassium level 5.5. I am going to start her on Kayexalate. I did go ahead and give a 7.5 mg albuterol treatment as well as some calcium gluconate however patient does not have any peak T waves or acute findings on EKG that are of great concern. Patient has been advised to return tomorrow if she is still in town to have her potassium rechecked. I have advised her to go back to [place] where her doctors are as we do not have nephrology on today. 09/08/18 15:58 Chest x-ray reviewed: No significant change from prior. - Vital Signs Vital signs: Temp Pulse Resp BP Pulse Ox 97.4 F 90 10 L 155/77 H 100 09/08/18 11:23 09/08/18 11:23 09/08/18 13:07 09/08/18 13:07 09/08/18 13:00 - Laboratory Result Diagrams: 09/08/18 11:40 09/08/18 11:40 Laboratory results interpreted by me: 09/08/18 09/08/18 11:40 11:40 Hgb 9.4 L Hct 29.1 L MCV 74 L MCH 23.9 L RDW 22.0 H Plt Count 143 L Potassium 5.5 H Chloride 97 L Anion Gap 21 H BUN 100 H Creatinine 13.00 H Est GFR ( Amer) 4 L Est GFR (Non-Af Amer) 3 L Glucose 118 H Calcium 10.4 H Direct Bilirubin 1.0 H - EKG Interpretation by Me EKG shows normal: Sinus rhythm, Intervals, QRS Complexes, ST-T Waves Voltage: Consistant with LVH Discharge - Discharge Clinical Impression: Acute renal failure on dialysis, Chronic hyperkalemia Condition: Good Disposition: HOME, SELF-CARE Instructions: Kidney Failure ([facility]) Additional Instructions: I am starting you on Kayexalate. You will need to take this twice a day without fail. Avoid high potassium foods. If you are still in town it would be important to have your potassium level rechecked tomorrow. Please make arrangements to get back to where your talent analyst is as soon as possible so that you can have dialysis. It does not appear that you need immediate dialysis at this time however more than likely will need it in the next 1-2 days if not sooner. Prescriptions: Albuterol Sulfate [Proventil 0.5% Neb 2.5 mg/0.5 ml Vial.neb] 2.5 mg NEB Q4H 5 Days #25 vial.neb Nebulizer [Nebulizer Machine] 1 each ASDIR PRN #1 kit PRN Reason: Sodium Polystyrene Sulfonate [Kayexalate 15 Gm/60 Ml Susp 60 Ml] 15 gm PO BID 5 Days #480 ml
[2018-09-08] MEDS ORDERED: ONDANSETRON HCL INJ/PF 4 MG/2 ML SDV IV ONE (12:46)
[2018-09-08 13:00] LABS: ABSOLUTE BASOPHILS # (AUTO) 0.1 10^3/uL (0.0-0.2); ABSOLUTE EOSINOPHILS # (AUTO) 0.4 10^3/uL (0.0-0.6); ABSOLUTE LYMPHOCYTES (AUTO) 1.2 10^3/uL (0.5-4.7); ABSOLUTE MONOCYTES (AUTO) 0.7 10^3/uL (0.1-1.4); ABSOLUTE NEUT (AUTO) 5.4 10^3/uL (1.7-8.2); BASOPHILS % (AUTO) 1.2 % (0-2); EOSINOPHILS % (AUTO) 5.1 % (0-6); HEMATOCRIT 29.1 % (36.0-47.0); HEMOGLOBIN 9.4 g/dL (12.0-15.5); LYMPHOCYTES % (AUTO) 15.6 % (13-45); MEAN CORPUSCULAR HEMOGLOBIN 23.9 pg (27.0-33.4); MEAN CORPUSCULAR HGB CONC 32.2 g/dL (32.0-36.0); MEAN CORPUSCULAR VOLUME 74 fl (80-97); MONOCYTES % (AUTO) 8.7 % (3-13); PLATELET COUNT 143 10^3/uL (150-450); RED BLOOD COUNT 3.92 10^6/uL (3.72-5.28); SEGMENTED NEUTROPHILS % (AUTO) 69.4 % (42-78); TOTAL CELLS COUNTED % (AUTO) 100 %; WHITE BLOOD COUNT 7.8 10^3/uL (4.0-10.5)
[2018-09-08] MEDS ORDERED: SODIUM POLYSTYRENE SULFONATE 15 GM/60 ML PO ONE (13:04)
[2018-09-08 13:06] LABS: ALANINE AMINOTRANSFERASE 15 U/L (9-52); ALBUMIN 3.9 g/dL (3.5-5.0); ALKALINE PHOSPHATASE 121 U/L (38-126); ASPARTATE AMINO TRANSFERASE 25 U/L (14-36); BLOOD UREA NITROGEN 100 mg/dL (7-20); CALCIUM 10.4 mg/dL (8.4-10.2); GLUCOSE 118 mg/dL (75-110); POTASSIUM 5.5 mmol/L (3.6-5.0); TOTAL PROTEIN 7.7 g/dL (6.3-8.2)
[2018-09-08 13:11] LABS: CARBON DIOXIDE 22 mmol/L (22-30); CHLORIDE 97 mmol/L (98-107); SODIUM 140.5 mmol/L (137-145)
[2018-09-08 13:15] LABS: ANION GAP 21 (5-19)
[2018-09-08] MEDS ORDERED: CALCIUM GLUCONATE 1000 MG/10 ML INJ IV ONE (14:29)
[2018-09-08] MEDS ORDERED: ALBUTEROL SULFATE 0.083% NEB 2.5 MG/3 ML AMPUL NEB ONE (14:29)
[2018-09-08] MEDS ORDERED: HYDROMORPHONE HCL 2 MG TABLET PO ONE (15:23)
--- NOTE | 2018-09-08 16:01 | RADIOLOGY REPORT (SQ) ---
EXAM DESCRIPTION: CHEST SINGLE VIEW COMPLETED DATE/TIME: 09/08/2018 3:28 pm REASON FOR STUDY: cough COMPARISON: 09/07/2018 EXAM PARAMETERS: NUMBER OF VIEWS: One view. TECHNIQUE: Single frontal radiographic view of the chest acquired. RADIATION DOSE: NA LIMITATIONS: None. FINDINGS: LUNGS AND PLEURA: No opacities, masses or pneumothorax. No pleural effusion. MEDIASTINUM AND HILAR STRUCTURES: No masses. Contour normal. HEART AND VASCULAR STRUCTURES: Cardiomegaly. BONES: No acute findings. HARDWARE: None in the chest. OTHER: Right neck tunneled vascular catheter. IMPRESSION: Cardiomegaly without acute abnormality of the lungs. Stable AP examination. TECHNICAL DOCUMENTATION: JOB ID: [id number] [employer]- All Rights Reserved Reading location - IP/workstation name: [email or web address]
[2018-09-08 16:04] VITALS: BP 151/74
--- NOTE | 2018-09-09 10:36 | EKG REPORT ---
SEVERITY:- ABNORMAL ECG - SINUS RHYTHM PROBABLE LEFT VENTRICULAR HYPERTROPHY ANTERIOR Q WAVES, POSSIBLY DUE TO LVH : Confirmed by: Alejandra Yang 09-Sep-2018 10:34:49
== END 2018-09-08 16:12 | disposition home or self-care (01) ==
LOC: ER 11:19
DX: N17.9 Acute kidney failure, unspecified (principal); I12.0 Hypertensive chronic kidney disease with stage 5 chronic kidney disease or end stage renal disease; N18.6 End stage renal disease; Z99.2 Dependence on renal dialysis; E87.5 Hyperkalemia; R05 Cough; R52 Pain, unspecified; I25.10 Atherosclerotic heart disease of native coronary artery without angina pectoris; Z88.5 Allergy status to narcotic agent; Z88.1 Allergy status to other antibiotic agents
CPT/HCPCS: 93005; 94640; 99284; 96374; 96375; 36415; 85025; 80053; 71045; 93010; J0610; J3010; A9270 ×2; J2405

== ENCOUNTER 2019-07-20 08:14 | Emergency (ER) | payer MEDICARE, OTHER ==
[2019-07-20] MEDS ORDERED: HYDROMORPHONE HCL INJ/PF 2 MG/ML AMPULE IV ONE (10:01)
[2019-07-20 10:09] LABS: ALKALINE PHOSPHATASE 109 U/L (38-126); ANION GAP 15 (5-19); ASPARTATE AMINO TRANSFERASE 21 U/L (14-36); BILIRUBIN,DIRECT 0.8 mg/dL (0.0-0.4); BILIRUBIN,TOTAL 0.8 mg/dL (0.2-1.3); BLOOD UREA NITROGEN 36 mg/dL (7-20); CALCIUM 9.7 mg/dL (8.4-10.2); CARBON DIOXIDE 25 mmol/L (22-30); CHLORIDE 96 mmol/L (98-107); GLUCOSE 90 mg/dL (75-110); TOTAL PROTEIN 7.4 g/dL (6.3-8.2)
[2019-07-20 10:14] LABS: ABSOLUTE EOSINOPHILS # (AUTO) 0.3 10^3/uL (0.0-0.6); ABSOLUTE LYMPHOCYTES (AUTO) 0.7 10^3/uL (0.5-4.7); ABSOLUTE MONOCYTES (AUTO) 0.5 10^3/uL (0.1-1.4); ABSOLUTE NEUT (AUTO) 3.2 10^3/uL (1.7-8.2); EOSINOPHILS % (AUTO) 5.8 % (0-6); HEMATOCRIT 34.7 % (36.0-47.0); HEMOGLOBIN 11.1 g/dL (12.0-15.5); LYMPHOCYTES % (AUTO) 14.9 % (13-45); MEAN CORPUSCULAR HEMOGLOBIN 25.6 pg (27.0-33.4); MEAN CORPUSCULAR HGB CONC 31.9 g/dL (32.0-36.0); MEAN CORPUSCULAR VOLUME 80 fl (80-97); MONOCYTES % (AUTO) 10.8 % (3-13); PLATELET COUNT 151 10^3/uL (150-450); RED BLOOD COUNT 4.32 10^6/uL (3.72-5.28); RED CELL DISTRIBUTION WIDTH 19.2 % (11.5-14.0); SEGMENTED NEUTROPHILS % (AUTO) 67.5 % (42-78); TOTAL CELLS COUNTED % (AUTO) 100 %; WHITE BLOOD COUNT 4.7 10^3/uL (4.0-10.5)
--- NOTE | 2019-07-20 10:32 | RADIOLOGY REPORT (SQ) ---
EXAM DESCRIPTION: CHEST 2 VIEWS COMPLETED DATE/TIME: 07/20/2019 10:17 am REASON FOR STUDY: dyspnea COMPARISON: Chest films 09/08/2018, 09/07/2018, 10/26/2016, 02/24/2016 EXAM PARAMETERS: NUMBER OF VIEWS: two views TECHNIQUE: Digital Frontal and Lateral radiographic views of the chest acquired. RADIATION DOSE: NA LIMITATIONS: none FINDINGS: LUNGS AND PLEURA: There is pulmonary vascular congestion with mild interstitial pulmonary edema. No pleural effusions or pneumothorax. MEDIASTINUM AND HILAR STRUCTURES: No masses or contour abnormalities. HEART AND VASCULAR STRUCTURES: Mild cardiomegaly BONES: No acute findings. HARDWARE: Right central venous dialysis catheter tip in the superior vena cava OTHER: No other significant finding. IMPRESSION: Pulmonary vascular congestion with mild interstitial edema. TECHNICAL DOCUMENTATION: JOB ID: [id number] [employer]- All Rights Reserved Reading location - IP/workstation name: [email or web address]
[2019-07-20] MEDS ORDERED: VANCOMYCIN HCL INJ 1000 MG VIAL IV ONE (10:37)
[2019-07-20] MEDS ORDERED: ONDANSETRON HCL INJ/PF 4 MG/2 ML SDV IV ONE (10:37)
[2019-07-20] MEDS ORDERED: CEFTAZIDIME INJ 1 GM VIAL IV ONE ×2 (10:37→13:45)
--- NOTE | 2019-07-20 10:37 | ER Document Report ---
Entered by JOE BARBER SCRIBE 07/20/19 0956 Acting as scribe for:LORRAINE STALEY MD ED General - General Chief Complaint: Flu Symptoms Stated Complaint: EAR PAIN, BODY PAIN Time Seen by Provider: 07/20/19 09:23 Mode of Arrival: Ambulatory Information source: Patient Notes: Patient is a 53-year-old female on a hemodialysis schedule of //Mon. who presents today (Monday) for evaluation to see if she "really needs dialysis today or if she can wait and have it Monday". Patient states that she is here visiting for the weekend, as she resides in [place], [place]. Patient states she was "supposed to have dialysis across the street today but they did not have my paperwork so they told me to come here". Patient states that she has had body aches, fevers, and bilateral ear pain (right > left) since yesterday as well. The patient states that she does not make urine. She has had a PermCath for dialysis since 2011. She had tubes placed in her ears 2 years ago. Relative at bedside states that the patient had a 4-day admission last week for pneumonia. Relative states that the patient has been getting IV antibiotic dosages at dialysis and she is due for that today too. He thinks that she is getting vancomycin but is not sure. He does not know what dosage she is getting but states he will call and try to obtain this information. The patient's relative was able to obtain the medication she was supposed received today. It was vancomycin 1 g IV, and Fortaz 1 g IV. I later learned that the patient is on oxygen 2 L nasal cannula at home when she is active due to desaturation. She also has a nebulizer for her wheezing. TRAVEL OUTSIDE OF THE [place] IN LAST 30 DAYS: No - Related Data Allergies/Adverse Reactions: acetaminophen [From Percocet] Allergy (Verified 09/08/18 11:21) rash oxycodone HCl [From Percocet] Allergy (Verified 09/08/18 11:21) sulfamethoxazole [From Bactrim] Allergy (Verified 09/08/18 11:21) trimethoprim [From Bactrim] Allergy (Verified 09/08/18 11:21) alprazolam [From Xanax] Adverse Reaction (Verified 09/08/18 11:21) Hallucinations Home Medications: hyrdalizine 100mg. labetalol 100mg qid. nefetipine 60mg bid. monoxidil 2.5mg bid. keppra 500mg bid. gabapentin 100mg qid. clazopam 2mg bid. calcitrol 0.5. protonix 40mg. epivir 2.5mg. tivicay Past Medical History - General Information source: Patient - Social History Smoking Status: Never Smoker Cigarette use (# per day): No Chew tobacco use (# tins/day): No Frequency of alcohol use: None Drug Abuse: None Lives with: Family Family History: Reviewed & Not Pertinent Patient has suicidal ideation: No Patient has homicidal ideation: No - Past Medical History Cardiac Medical History: Reports: Hx Congestive Heart Failure - diastolic heart failure, Hx Coronary Artery Disease, Hx Heart Attack, Hx Hypertension Pulmonary Medical History: Reports: Hx Asthma Neurological Medical History: Reports: Hx Cerebrovascular Accident, Hx Seizures - Last episode in 2014 Renal/ Medical History: Reports: Hx End Stage Renal Disease, Hx Hemodialysis GI Medical History: Reports: Hx Gastroesophageal Reflux Disease Musculoskeletal Medical History: Reports Hx Arthritis, Reports Hx Musculoskeleta l Deformity Infectious Medical History: Reports: Hx Hepatitis - Hepatitis B, Hx HIV Past Surgical History: Reports: Hx Cardiac Catheterization - In July 2019 and was negative, Hx Hysterectomy, Hx Myringotomy - 2016, Other - Perm cath insertion - Immunizations Immunizations up to date: No Hx Diphtheria, Pertussis, Tetanus Vaccination: Yes Review of Systems - Review of Systems Constitutional: See HPI EENT: See HPI Cardiovascular: No symptoms reported Respiratory: See HPI, Short of breath, Wheezing Gastrointestinal: No symptoms reported Genitourinary: No symptoms reported Female Genitourinary: Other - Does not make urine Musculoskeletal: See HPI Skin: No symptoms reported Hematologic/Lymphatic: No symptoms reported Neurological/Psychological: No symptoms reported -: Yes All other systems reviewed and negative Physical Exam - Vital signs Vitals: Pulse Ox 98 07/20/19 08:33 - Notes Notes: Physical Exam: General: Alert, appears well. HEENT: Normocephalic. Atraumatic. PERRL. Extraocular movements intact. Or opharynx clear. TMs are clear bilaterally, there is copious amounts of cerumen bilaterally R > L. Neck: Supple. Non-tender. Respiratory: No respiratory distress. Clear and equal breath sounds bilaterally. Cardiovascular: Regular rate and rhythm. Abdominal: Normal Inspection. Non-tender. No distension. Normal Bowel Sounds. Back: No gross abnormalities. Extremities: Moves all four extremities. Upper extremities: Normal inspection. Normal ROM. Lower extremities: Normal inspection. No edema. Normal ROM. Neurological: Normal cognition. AAOx4. Normal speech. Psychological: Normal affect. Normal Mood. Skin: Warm. Dry. Normal color. Course - Re-evaluation Re-evalutation: 07/20/19 15:34 The patient has received her antibiotics. She states her breathing feels better after the breathing treatments. She is asking about what she can take for cough, I did discuss Delsym DM which is a concentrated long-acting form of the eczema for them, she has never taken this before so we will give it a try. She is going to institute the hurricane disaster type diet for dialysis patients so that she does not get any further fluid overloaded or because her potassium to rise. She does have Kayexalate at home if necessary. She has got a time scheduled on Monday at her dialysis center in [place]. She does have oxygen with her and a nebulizer. We do not have dialysis capability at this facility, and if we were to try to manage her as inpatient, it would require transfer to another facility. Several facilities around [facility] are close to adult medical admissions due to overcrowding. The patient and her spouse feels that she will be all right following the hurricane disaster renal diet, and using her oxygen and breathing treatments. - Vital Signs Vital signs: Temp Pulse Resp BP Pulse Ox 77 28 H 112/56 L 94 07/20/19 08:48 07/20/19 11:06 07/20/19 11:06 07/20/19 11:06 - Laboratory Result Diagrams: 07/20/19 09:04 07/20/19 09:04 Laboratory results interpreted by me: 07/20/19 07/20/19 09:04 09:04 Hgb 11.1 L Hct 34.7 L MCH 25.6 L MCHC 31.9 L RDW 19.2 H Sodium 136.0 L Chloride 96 L BUN 36 H Creatinine 8.80 H Est GFR ( Amer) 6 L Est GFR (MDRD) Non-Af 5 L Direct Bilirubin 0.8 H - Diagnostic Test Radiology reviewed: Image reviewed, Reports reviewed - 2 view chest x-ray shows mild cardiomegaly and pulmonary vascular congestion with mild interstitial edema Discharge - Discharge Clinical Impression: Myalgia, Chronic renal failure, stage 5, Pulmonary vascular congestion, Bronchitis Fever Qualifiers: Fever type: unspecified Qualified Code(s): R50.9 - Fever, unspecified HIV (human immunodeficiency virus infection) Qualifiers: HIV symptom status: asymptomatic Qualified Code(s): Z21 - Asymptomatic human immunodeficiency virus [HIV] infection status Condition: Stable Disposition: HOME, SELF-CARE Additional Instructions: Bronchitis with Bronchospasm (Wheezing) You have bronchitis with bronchospasm (wheezing). Sometimes people develop wheezing with a chest cold. This occurs either because of an underlying tendency toward asthma or because the virus itself irritates the bronchial tubes. This irritation causes cough, shortness of breath, and wheezing. Emergency treatment of bronchospasm may include bronchodilator aerosol. You may feel lightheaded and have a rapid pulse for an hour or two. Rest. At home, we'll treat you with a bronchodilator inhaler. Until you recover, avoid chemical fumes, dusts, pollens, and exercising in very cold or dry air. If you smoke, stop now! Most cases of bronchitis get better without antibiotics. We prescribe antibiotics when we believe bacteria are damaging your airways, or if there's h igh risk the bronchitis will worsen into pneumonia. Increase your fluid intake. A cool mist humidifier may make your lungs more comfortable. An expectorant (cough medicine that loosens phlegm) can help. Continue your regular medications. Use your oxygen as needed. Do your albuterol nebulizer treatments as needed. Try to follow the "hurricane disaster dialysis diet" for when you may not be able to dialyze for several days. Try taking Delsym DM or the [employer] generic version of this medication to help control your cough and congestion. Take a dose of your Kayexalate if you concerned that your potassium may be rising. Follow-up with your doctors at dialysis on Monday as scheduled. Take the copies of your lab work and chest x-ray report with you. RETURN TO THE EMERGENCY ROOM IF ANY NEW OR WORSENING SYMPTOMS. [place] Attestation: 07/20/19 11:45 I personally performed the services described in the documentation, reviewed and edited the documentation which was dictated to the scribe in my presence, and it accurately records my words and actions. I personally performed the services described in the documentation, reviewed and edited the documentation which was dictated to the scribe in my presence, and it accurately records my words and actions.
[2019-07-20 10:47] LABS: HYPOCHROMASIA SLIGHT
[2019-07-20 10:48] LABS: ANISOCYTOSIS 1+; PLATELET COMMENT ADEQUATE; TEAR DROP CELLS 1+
[2019-07-20] MEDS ORDERED: IPRATROPIUM/ALBUTEROL 0.5-2.5 MG/3 ML AMPUL NEB ONE (13:36)
[2019-07-20] MEDS ORDERED: CEFTAZIDIME INJ 1 GM VIAL IV SCH (13:45)
[2019-07-20] MEDS ORDERED: ALBUTEROL SULFATE 0.083% NEB 2.5 MG/3 ML AMPUL NEB ONE (14:27)
[2019-07-20 15:48] VITALS: BP 112/68
== END 2019-07-20 15:57 | disposition home or self-care (01) ==
LOC: ER 08:14
DX: I12.0 Hypertensive chronic kidney disease with stage 5 chronic kidney disease or end stage renal disease (principal); N18.5 Chronic kidney disease, stage 5; I50.9 Heart failure, unspecified; J40 Bronchitis, not specified as acute or chronic; R50.9 Fever, unspecified; R09.89 Other specified symptoms and signs involving the circulatory and respiratory systems; Z21 Asymptomatic human immunodeficiency virus [HIV] infection status; M79.10 Myalgia, unspecified site; H92.03 Otalgia, bilateral; Z99.81 Dependence on supplemental oxygen; Z79.899 Other long term (current) drug therapy; I25.10 Atherosclerotic heart disease of native coronary artery without angina pectoris
CPT/HCPCS: 36415; 85025; 80053; 71046; J0713; J1170; J2405; J3370; A9270 ×2; J7620

== ENCOUNTER 2019-12-15 | Emergency (ER) | payer OTHER, MEDICARE ==
[2019-12-15 00:27] VITALS: BP 138/62
--- NOTE | 2019-12-15 01:37 | RADIOLOGY REPORT (SQ) ---
EXAM DESCRIPTION: XR CHEST 2 VIEWS COMPLETED DATE/TME: 12/15/2019 01:01 CLINICAL INDICATION: 54-year-old female with shortness of breath. TECHNIQUE: Two-view, PA and lateral projections of the chest were obtained. COMPARISON: 07/20/2019. FINDINGS: Stable enlarged cardiac and mediastinal silhouette. Heart size is enlarged. Diffuse interstitial and central pulmonary vascular prominence raising the concern for pulmonary vascular congestion, edema. Superimposed infectious process may be considered in the correct clinical setting. No pneumothorax. Trace bilateral pleural effusions. RIGHT internal jugular approach central venous catheter tip terminates at the SVC RIGHT atrial junction. Elevation of the RIGHT hemidiaphragm. The visualized bones are within normal limits. IMPRESSION: 1. Cardiomegaly with diffuse interstitial and central pulmonary vascular prominence concerning for cardiac decompensation. 2. Trace pleural effusion.
[2019-12-15] MEDS ORDERED: LEVALBUTEROL HCL NEB 1.25 MG/3 ML AMPUL NEB ONE (01:46)
[2019-12-15] MEDS ORDERED: MORPHINE SULFATE 10 MG/ML INJ IV ONE (01:47)
[2019-12-15] MEDS ORDERED: ONDANSETRON HCL INJ/PF 4 MG/2 ML SDV IV ONE (01:47)
--- NOTE | 2019-12-15 02:16 | ER Document Report ---
Entered by TK FLORES SCRIBE 12/15/19 0127 Acting as scribe for:HARIKA QUESADA IV, MD ED General - General Chief Complaint: Shortness Of Breath Stated Complaint: ABDOMINAL PAIN/VOMITING/BODYACHES Time Seen by Provider: 12/15/19 01:23 Mode of Arrival: Ambulatory Information source: Patient, Relative - Notes: This 54 year old female patient with a history of ESRD presents to the ED today with complaints of shortness of breath, nausea, vomiting, abdominal pain and body aches for the past x2 days. at bedside reports that the patient was diagnosed with pneumonia last week and was admitted for x3 days at [facility] and then sent home with a x3 days supply of antibiotics that has since been finished. Patient also reports left hip pain post fall that occurred last night after losing her balance while chasing her dog. Patient states that she usually has hemodialysis Monday, , and Monday, but went "[id number]" on (12/11) and Monday (12/12) due to fluid overload. Patient also states that she uses 2L O2 via [place] as needed. states that the patient usually receives Morphine for her pain when she is here and that she can't take Percocet or Tylenol. TRAVEL OUTSIDE OF THE [place] IN LAST 30 DAYS: No - Related Data Allergies/Adverse Reactions: acetaminophen [From Percocet] Allergy (Verified 09/08/18 11:21) rash oxycodone HCl [From Percocet] Allergy (Verified 09/08/18 11:21) sulfamethoxazole [From Bactrim] Allergy (Verified 09/08/18 11:21) trimethoprim [From Bactrim] Allergy (Verified 09/08/18 11:21) alprazolam [From Xanax] Adverse Reaction (Verified 09/08/18 11:21) Hallucinations Home Medications: keppra 500 mg bid. gabapentin 300 mg per day. clonazepam 2 mg bid. calcitrol 0.5 qday. protonix 40 mg qday. vitamin. hydrazaline 100 mg bid. procardia 60 mg bid. labatelol 300 mg bid. monixile 2.5 bid Past Medical History - General Information source: Patient, Relative - , [facility] Records - Social History Smoking Status: Never Smoker Cigarette use (# per day): No Chew tobacco use (# tins/day): No Smoking Education Provided: No Family History: Reviewed & Not Pertinent Patient has suicidal ideation: No Patient has homicidal ideation: No - Past Medical History Cardiac Medical History: Reports: Hx Congestive Heart Failure - diastolic heart failure, Hx Coronary Artery Disease, Hx Heart Attack, Hx Hypertension Pulmonary Medical History: Reports: Hx Asthma Neurological Medical History: Reports: Hx Cerebrovascular Accident, Hx Seizures - Last episode in 2014 Renal/ Medical History: Reports: Hx End Stage Renal Disease, Hx Hemodialysis GI Medical History: Reports: Hx Gastroesophageal Reflux Disease, Hx Hepatitis - Hepatitis B Musculoskeletal Medical History: Reports Hx Arthritis, Reports Hx Musculoskeletal Deformity Infectious Medical History: Reports: Hx Hepatitis - Hepatitis B, Hx HIV Past Surgical History: Reports: Hx Cardiac Catheterization - In July 2019 and was negative, Hx Coronary Stent, Hx Hysterectomy, Hx Myringotomy - 2016, Hx Valve Replacement - Dialysis catheter, Other - Perm cath insertion - Immunizations Immunizations up to date: No Hx Diphtheria, Pertussis, Tetanus Vaccination: Yes Review of Systems - Review of Systems Constitutional: No symptoms reported EENT: No symptoms reported Cardiovascular: No symptoms reported Respiratory: See HPI, Short of breath Gastrointestinal: See HPI, Abdominal pain, Nausea, Vomiting Genitourinary: No symptoms reported Female Genitourinary: No symptoms reported Musculoskeletal: See HPI, Joint pain - Left hip, Other - Body aches Skin: No symptoms reported Hematologic/Lymphatic: No symptoms reported Neurological/Psychological: No symptoms reported -: Yes All other systems reviewed and negative Physical Exam - Vital signs Vitals: Temp Pulse Resp BP Pulse Ox 98.1 F 75 22 H 138/62 H 88 L 12/15/19 00:19 12/15/19 00:19 12/15/19 00:19 12/15/19 00:12/15/19 00:19 - General General appearance: Alert - and awake x3 - HEENT Head: Normocephalic, Atraumatic Eyes: Normal Pupils: PERRL - Respiratory Respiratory status: No respiratory distress Chest status: Nontender Breath sounds: Rhonchi - Scant rhonchi appreaciated at base of lungs bilaterally Chest palpation: Normal - Cardiovascular Rhythm: Regular Heart sounds: Normal auscultation Murmur: No Friction rub: No Gallop: None auscultated - Abdominal Inspection: Normal Distension: No distension Bowel sounds: Normal Tenderness: Nontender - Abdomen soft Organomegaly: No organomegaly - Back Back: Normal, Nontender - Extremities General upper extremity: Normal inspection General lower extremity: Normal inspection, Other - No foreshortening of the LLE compared to the right. - Neurological Neuro grossly intact: Yes - Psychological Associated symptoms: Normal affect, Normal mood - Skin Skin Temperature: Warm Skin Moisture: Dry Skin Color: Normal Course - Re-evaluation Re-evalutation: 12/15/19 03:23 Results of ED MSE discussed with patient. All questions were answered prior to discharge. Emergency signs and symptoms, reasons to return to the emergency department discussed with patient. 12/15/19 03:24 Patient is requesting a prescription refill for Zyrtec. - Vital Signs Vital signs: Temp Pulse Resp BP Pulse Ox 98.1 F 75 24 H 138/62 H 100 12/15/19 00:19 12/15/19 00:19 12/15/19 02:00 12/15/19 00:19 12/15/19 02:00 - Laboratory Result Diagrams: 12/15/19 01:35 12/15/19 01:35 Laboratory results interpreted by me: 12/15/19 12/15/19 01:35 01:35 WBC 3.7 L RBC 3.17 L Hgb 7.4 L Hct 23.6 L MCV 75 L MCH 23.4 L MCHC 31.5 L RDW 20.0 H Plt Count 125 L Sodium 134.9 L Potassium 5.1 H Creatinine 5.25 H Est GFR ( Amer) 10 L Est GFR (MDRD) Non-Af 8 L - Diagnostic Test Radiology reviewed: Reports reviewed - EKG Interpretation by Me Additional EKG results interpreted by me: 12/15/19 03:23 EKG obtained 12/15/2019 at 0131 hrs. was interpreted by this MD. Findings sinus rhythm with first-degree AV block, rate 70, P waves proceed QRS complexes, QRS complexes appear narrow, there are no obviously visible patterns of ST segment elevation or depression present to suggest acute myocardial ischemia or infarction. Impression sinus rhythm with first-degree AV block and nonspecific ST segments. Discharge - Discharge Clinical Impression: Encounter for medication refill, Anemia in chronic kidney disease Nausea and vomiting Qualifiers: Vomiting type: unspecified Vomiting Intractability: non-intractable Qualified Code(s): R11.2 - Nausea with vomiting, unspecified Contusion of left hip Qualifiers: Encounter type: initial encounter Qualified Code(s): S70.02XA - Contusion of left hip, initial encounter Condition: Good Disposition: HOME, SELF-CARE Instructions: Antinausea Medication ([facility]) Additional Instructions: Be certain to follow-up with your gluing machine operator automatic on 12/16/2019. Return to the Emergency Department without delay if any worse. Contusion Your injury has resulted in a contusion -- a crushing of the deep tissues. No injury to important structures was detected during the physician's exam. Contusions vary in the amount of pain they cause, and in the length of time required for healing. Typically, the area will become bruised, and will remain painful to touch for two or three weeks. However, most patients are back to working and playing within a few days. After the initial period of rest and cold-packs, your symptoms (together with the doctor's recommendations) will determine how rapidly you can get back to full activity. Usually this means "do what feels okay, but don't do things that hurt." If re-examination was recommended, it's important to follow up as instructed. Call the doctor or return any time if pain increases, if swelling becomes severe, if you develop numbness or weakness in an injured extremity, or if any other alarming symptoms occur. HOME CARE INSTRUCTIONS & INFORMATION: Thank you for choosing us for your medical needs. We hope you're satisfied with the care you received. After you leave, you must properly care for your problem and, at the same time, observe its progress. Any condition can change. Some illnesses can change rapidly over hours or days. If your condition worsens, return to the Emergency Department or see your physician promptly. ABOUT YOUR X-RAYS AND EKG'S: If you had an EKG or X-rays taken, they have been read by the Emergency Physician. The X-rays and EKG's will also be read by a Radiologist or Small Engine Trainer within 24 hours. If discrepancies are noted, you will be notified by telephone. Please be certain the ED has a correct telephone number & address where you can be reached. Also, realize that some fractures or abnormalities do not show up on initial X-rays. If your symptoms continue, see your physician. ABOUT YOUR LABORATORY TEST: If you had laboratory tests, the results have been reviewed by the Emergency Physician. Some test results (for example cultures) may not be available for several days. You will be contacted if any test result shows you need additional treatment. Please be certain the ED has a correct telephone number and address where you can be reached. ABOUT YOUR MEDICATIONS: You will receive instructions on how to take your medicine on the prescription label you receive. Additional information may be provided by the Pharmacy. If you have questions afterwards, call the ED for clarification or further instructions. Some prescribed medications may cause drowsiness. Do not perform tasks such as driving a car or operating machinery without consulting your Pharmacist. If you feel you need a refill of pain medication, your condition will need re-evaluation. Please do not call for a refill of any medication. ABOUT YOUR SIGNATURE: Signature of this document acknowledges to followin. Understanding that you received emergency treatment and that you may be released before al medical problems are known or treated. Please be certain the ED has a correct phone number & address where you can be reached. 2. Acknowledgement that you will arrange for follow-up care as recommended. 3. Authorization for the Emergency Physician to provide information to your follow-up Physician in order to maximize your care. AT ANY TIME, IF YOUR SYMPTOMS CHANGE SIGNIFICANTLY OR WORSEN OR YOU DEVELOP NEW SYMPTOMS, RETURN TO THE EMERGENCY DEPARTMENT IMMEDIATELY FOR RE-EVALUATION. OUR GOAL IS TO PROVIDE EXCELLENT MEDICAL CARE! WE HOPE THAT WE HAVE MET YOUR EXPECTATIONS DURING YOUR EMERGENCY DEPARTMENT VISIT AND THAT YOU FEEL YOU HAVE RECEIVED EXCELLENT CARE! Prescriptions: Ondansetron [Zofran Odt 4 mg Tablet] 1 tab PO Q8HP PRN #15 tab.rapdis PRN Reason: For Nausea/Vomiting Cetirizine HCl [Zyrtec 10 mg Tablet] 10 mg PO DAILY #14 tablet I personally performed the services described in the documentation, reviewed and edited the documentation which was dictated to the scribe in my presence, and it accurately records my words and actions.
[2019-12-15 02:18] LABS: ALKALINE PHOSPHATASE 124 U/L (38-126); ANION GAP 11 (5-19); ASPARTATE AMINO TRANSFERASE 25 U/L (14-36); BILIRUBIN,DIRECT 0.3 mg/dL (0.0-0.4); BILIRUBIN,TOTAL 0.4 mg/dL (0.2-1.3); BLOOD UREA NITROGEN 20 mg/dL (7-20); CALCIUM 9.2 mg/dL (8.4-10.2); CARBON DIOXIDE 25 mmol/L (22-30); CHLORIDE 99 mmol/L (98-107); GLUCOSE 92 mg/dL (75-110); POTASSIUM 5.1 mmol/L (3.6-5.0); TOTAL PROTEIN 7.5 g/dL (6.3-8.2)
[2019-12-15 02:41] LABS: HEMATOCRIT 23.6 % (36.0-47.0); MEAN CORPUSCULAR HEMOGLOBIN 23.4 pg (27.0-33.4); MEAN CORPUSCULAR HGB CONC 31.5 g/dL (32.0-36.0); MEAN CORPUSCULAR VOLUME 75 fl (80-97); PLATELET COUNT 125 10^3/uL (150-450); RED BLOOD COUNT 3.17 10^6/uL (3.72-5.28); WHITE BLOOD COUNT 3.7 10^3/uL (4.0-10.5)
[2019-12-15 02:42] LABS: HEMOGLOBIN 7.4 g/dL (12.0-15.5)
[2019-12-15 02:44] LABS: ABSOLUTE LYMPHOCYTES# (MANUAL) 0.7 10^3/uL (0.5-4.7); ABSOLUTE MONOCYTES # (MANUAL) 0.3 10^3/uL (0.1-1.4); BASOPHILS % (MANUAL) 0 % (0-2); EOSINOPHILS % (MANUAL) 4 % (0-6); LYMPHOCYTES % (MANUAL) 18 % (13-45); METAMYELOCYTES % (MANUAL) 1 % (0-1); MONOCYTES % (MANUAL) 8 % (3-13); SEGMENTED NEUTROPHILS % (MAN) 69 % (42-78); TOTAL CELLS COUNTED 100
[2019-12-15 02:45] LABS: ANISOCYTOSIS 3+; HYPOCHROMASIA 1+; PLATELET COMMENT ADEQUATE; POLYCHROMASIA 1+
--- NOTE | 2019-12-15 03:09 | RADIOLOGY REPORT (SQ) ---
EXAM DESCRIPTION: XR HIP 2 OR MORE VIEWS COMPLETED DATE/TME: 12/15/2019 01:46 CLINICAL HISTORY: 54 years, Female, hip pain after fall COMPARISON: None. NUMBER OF VIEWS: Two TECHNIQUE: Two views of the left hip. LIMITATIONS: None. FINDINGS: There is no acute fracture or dislocation. The hip and sacroiliac joints appear intact. No large soft tissue swelling. IMPRESSION: No acute fracture or dislocation copyright 2010 [employer]- All Rights Reserved
--- NOTE | 2019-12-16 00:29 | EKG REPORT ---
SEVERITY:- ABNORMAL ECG - SINUS RHYTHM FIRST DEGREE AV BLOCK : Confirmed by: Alejandra Yang 16-Dec-2019 00:28:31
== END 2019-12-15 03:47 | disposition home or self-care (01) ==
LOC: ER
DX: S70.02XA Contusion of left hip, initial encounter (principal); W01.0XXA Fall on same level from slipping, tripping and stumbling without subsequent striking against object, initial encounter; R06.02 Shortness of breath; R11.2 Nausea with vomiting, unspecified; R10.9 Unspecified abdominal pain; M79.10 Myalgia, unspecified site; I13.2 Hypertensive heart and chronic kidney disease with heart failure and with stage 5 chronic kidney disease, or end stage renal disease; N18.6 End stage renal disease; I50.30 Unspecified diastolic (congestive) heart failure; Z76.0 Encounter for issue of repeat prescription; Z99.2 Dependence on renal dialysis; Z88.6 Allergy status to analgesic agent; Z88.3 Allergy status to other anti-infective agents; Z86.73 Personal history of transient ischemic attack (TIA), and cerebral infarction without residual deficits; Z90.710 Acquired absence of both cervix and uterus; Z95.2 Presence of prosthetic heart valve; I25.2 Old myocardial infarction
CPT/HCPCS: 93005; 99284; 96374; 96375; 36415; 85025; 80053; 71046; 73502; 93010; J2270; J2405; J3490

== ENCOUNTER → 2020-09-23 | Outpatient (CLI) | payer MEDICARE, OTHER ==
[2020-09-23 13:52] VITALS: BP 164/74
--- NOTE | 2020-09-23 13:52 | ER RDC ASSESSMENT REPORT ---
Intake - In the Last 14 days Have you traveled outside [place]?: No Have you been in close contact with someone CONFIRMED: No Worked in Healthcare?: No - Symptoms Subjective Fever([place] feverish): No Chills: No Muscule Aches: No Runny Nose: No Sore Throat: No Cough (New or worsening chronic cough): No Shortness of breath: No Nausea or Vomiting: No Headache: No Abdominal Pain: No Diarrhea(3 or more loose stools in last 24 hours): No - Do you have any of the following Chronic lung disease: Asthma or emphysema or COPD: No Cystic Fibrosis: No Diabetes: No High Blood Pressure: Yes Cardiovascular Disease: No Chronic Kidney Disease: Yes Chronic Liver Disease: No Chronic blood disorder like Sickle Cell Disease: No Weak immune system due to disease or medication: No Neurologic condition that limits movement: No Developmental delay - Moderate to Severe: No Morbid Obesity (>100 pounds over ideal weight): No - Objective Temperature: 98.5 F Pulse Rate: 71 Respiratory Rate: 16 Blood Pressure: 164/74 O2 Sat by Pulse Oximetry: 92 Objective: Given above, testing performed: covid Disposition: Home; Selfcare General - General Stated Complaint: asymptomatic, covid test Time Seen by Provider: 09/23/20 13:30 Mode of Arrival: Ambulatory Information source: Patient - HPI Notes: Patient presents to clinic for COVID-19 testing prior to initiating dialysis. Patient is asymptomatic. They deny any cough, shortness of breath, fever, chills, muscle aches, rhinorrhea, sore throat, nausea or vomiting, headache, abdominal pain or diarrhea. Patient has no acute medical concerns. - Related Data Allergies/Adverse Reactions: acetaminophen [From Percocet] Allergy (Verified 09/08/18 11:21) rash oxycodone HCl [From Percocet] Allergy (Verified 09/08/18 11:21) sulfamethoxazole [From Bactrim] Allergy (Verified 09/08/18 11:21) trimethoprim [From Bactrim] Allergy (Verified 09/08/18 11:21) alprazolam [From Xanax] Adverse Reaction (Verified 09/08/18 11:21) Hallucinations Past Medical History - General Information source: Patient - Social History Smoking Status: Never Smoker Family History: Reviewed & Not Pertinent - Past Medical History Cardiac Medical History: Reports: Hx Congestive Heart Failure - diastolic heart failure, Hx Coronary Artery Disease, Hx Heart Attack, Hx Hypertension Denies: Hx DVT, Hx Hypercholesterolemia, Hx Pulmonary Embolism Pulmonary Medical History: Reports: Hx Asthma Neurological Medical History: Reports: Hx Cerebrovascular Accident, Hx Seizures - Last episode in 2014 Endocrine Medical History: Reports: None. Denies: Hx Diabetes Mellitus Type 1, Hx Diabetes Mellitus Type 2, Hx Hyperthyroidism, Hx Hypothyroidism Renal/ Medical History: Reports: Hx End Stage Renal Disease, Hx Hemodialysis. Denies: Hx Peritoneal Dialysis - Hemodialysis Malignancy Medical History: Reports: None GI Medical History: Reports: Hx Gastroesophageal Reflux Disease, Hx Hepatitis - Hepatitis B. Denies: Hx Cirrhosis Musculoskeletal Medical History: Reports Hx Arthritis, Reports Hx Musculoskeletal Deformity Skin Medical History: Reports None, Denies Hx Eczema, Denies Hx Psoriasis Psychiatric Medical History: Reports: None Denies: Hx Depression Traumatic Medical History: Reports: None Infectious Medical History: Reports: Hx Hepatitis - Hepatitis B, Hx HIV Past Surgical History: Reports: Hx Cardiac Catheterization - In July 2019 and was negative, Hx Coronary Stent, Hx Hysterectomy, Hx Myringotomy - 2017, Hx Valve Replacement - Dialysis catheter, Other - Perm cath insertion Physical Exam - General General appearance: Appears well, Alert In distress: None Notes: PHYSICAL EXAMINATION: GENERAL: Well-appearing and in no acute distress. HEAD: Atraumatic, normocephalic. EYES: sclera anicteric, conjunctiva are normal. ENT: nares patent. Moist mucous membranes. NECK: Normal range of motion, supple without lymphadenopathy. LUNGS: No increased work of breathing. Lung sounds CTAB and equal. No wheezes rales or rhonchi. HEART: Regular rate and rhythm without murmurs. ABDOMEN: Soft, nontender, normal bowel sounds, no guarding. EXTREMITIES: Normal range of motion, no pitting edema. No cyanosis. NEUROLOGICAL: A&O x 3. Normal speech. PSYCH: Normal mood, normal affect. SKIN: Warm, Dry, normal turgor, no rashes or lesions noted Patient Education/Counseling Counseling/Education: Patient presents for COVID 19 testing prior to initiating dialysis. Patient is asymptomatic at this time. Patient does not have emergency worrying symptoms such as difficulty breathing, shortness of breath, chest pain, pressure, confusion or cyanosis. Patient appears suitable for discharge as vital signs are stable and patient is nontoxic in appearance. Good return precautions have been discussed with patient, patient verbalized understanding and is agreeable with discharge plan of care at this time. Guidance for worsening S/SX: As a person under investigation for Covid 19, the [place] department of Health and Human Services, division of public health advises you to adhere to the following guidance until your test results are reported to you. If your test result is positive, you will receive additional information from your provider and your local health department at that time. Remain at home until you are cleared by the health provider or public health authorities. Keep a log of visitors to your home, notify any visitors to your home of your isolation status. If you plan to move to a new address or leave the [facility], notify the local health department in your County. Call your doctor or seek care if you have an urgent medical need. Before seeking medical care, call ahead to get instructions from the provider before arriving at the medical office clinic or hospital. Notify them that you are being tested for the virus that causes Covid 19 so that arrangements can be made, as necessary, to prevent transmission to others in the healthcare setting. Next, notify the local health department in your county. If a medical emergency arises and you need to call 911, inform the first responders that you are being tested for the virus that causes Covid 19. Next, notify the local health department in your county. RDC Discharge - Discharge Clinical Impression: Encounter for screening laboratory testing for COVID-19 virus in asymptomatic patient Condition: Good Disposition: Home; Selfcare
== END ==
LOC: RDC 12:51
PROVIDERS: ATTEND Registered Nurse
DX: Z01.812 Encounter for preprocedural laboratory examination (principal); Z20.828 Contact with and (suspected) exposure to other viral communicable diseases; I13.2 Hypertensive heart and chronic kidney disease with heart failure and with stage 5 chronic kidney disease, or end stage renal disease; I50.30 Unspecified diastolic (congestive) heart failure; N18.6 End stage renal disease; I25.10 Atherosclerotic heart disease of native coronary artery without angina pectoris; K21.9 Gastro-esophageal reflux disease without esophagitis; Z99.2 Dependence on renal dialysis; Z21 Asymptomatic human immunodeficiency virus [HIV] infection status; Z88.1 Allergy status to other antibiotic agents; Z88.6 Allergy status to analgesic agent; Z88.8 Allergy status to other drugs, medicaments and biological substances; Z86.73 Personal history of transient ischemic attack (TIA), and cerebral infarction without residual deficits; Z86.19 Personal history of other infectious and parasitic diseases
CPT/HCPCS: U0003; C9803; 87635

== ENCOUNTER 2020-09-24 10:50 | Observation (INO) | payer OTHER, MEDICARE ==
--- NOTE | 2020-09-24 12:26 | ER Document Report ---
ED Medical Screen (RME) - General Chief Complaint: Abnormal Lab Results Stated Complaint: ABNORMAL LAS RESULTS Time Seen by Provider: 09/24/20 12:17 TRAVEL OUTSIDE OF THE U.S. IN LAST 30 DAYS: No - HPI Notes: 09/24/20 12:18 54 year old female with a history of hypertension and on dialysis presents to the emergency room today because she is having chest pain, body aches, headaches, nausea and was unable to receive dialysis from [facility] today. Patient states he was unable to get dialysis done today because the paperwork was not fully completed from transferring from [place]. Denies any fevers or chills. Patient denies any radiation of chest pain. Denies any shortness of breath. pt is anuria. I have greeted and performed a rapid initial assessment of this patient. A comprehensive ED assessment and evaluation of the patient, analysis of test results and completion of the medical decision making process will be conducted by additional ED providers. PHYSICAL EXAMINATION: GENERAL: Chronically ill well-nourished and in no acute distress. HEAD: Atraumatic, normocephalic. CV: s1, s2 regular LUNGS: No respiratory distress The patient was evaluated during a global COVID-19 pandemic and that diagnosis was suspected/considered upon their initial presentation. Their evaluation, treatment and testing was consistent with current guidelines for patients who present with complaints or symptoms and may be related to COVID-19. - Related Data Allergies/Adverse Reactions: acetaminophen [From Percocet] Allergy (Verified 09/08/18 11:21) rash oxycodone HCl [From Percocet] Allergy (Verified 09/08/18 11:21) sulfamethoxazole [From Bactrim] Allergy (Verified 09/08/18 11:21) trimethoprim [From Bactrim] Allergy (Verified 09/08/18 11:21) alprazolam [From Xanax] Adverse Reaction (Verified 09/08/18 11:21) Hallucinations Past Medical History - Past Medical History Cardiac Medical History: Reports: Hx Congestive Heart Failure - diastolic heart failure, Hx Coronary Artery Disease, Hx Heart Attack, Hx Hypertension Denies: Hx DVT, Hx Hypercholesterolemia, Hx Pulmonary Embolism Pulmonary Medical History: Reports: Hx Asthma Neurological Medical History: Reports: Hx Cerebrovascular Accident, Hx Seizures - Last episode in 2014 Endocrine Medical History: Denies: Hx Diabetes Mellitus Type 1, Hx Diabetes Mellitus Type 2, Hx Hyperthyroidism, Hx Hypothyroidism Renal/ Medical History: Reports: Hx End Stage Renal Disease, Hx Hemodialysis. Denies: Hx Peritoneal Dialysis - Hemodialysis GI Medical History: Reports: Hx Gastroesophageal Reflux Disease, Hx Hepatitis - Hepatitis B. Denies: Hx Cirrhosis Musculoskeltal Medical History: Reports Hx Arthritis, Reports Hx Musculoskeletal Deformity Skin Medical History: Denies Hx Eczema, Denies Hx Psoriasis Psychiatric Medical History: Denies: Hx Depression Infectious Medical History: Reports: Hx Hepatitis - Hepatitis B, Hx HIV Past Surgical History: Reports: Hx Cardiac Catheterization - In July 2019 and was negative, Hx Coronary Stent, Hx Hysterectomy, Hx Myringotomy - 2016, Hx Valve Replacement - Dialysis catheter, Other - Perm cath insertion - Immunizations Immunizations up to date: No Hx Diphtheria, Pertussis, Tetanus Vaccination: Yes Physical Exam - Vital signs Vitals: Temp Pulse Resp BP Pulse Ox 98.0 F 65 16 123/75 99 09/24/20 10:52 09/24/20 10:52 09/24/20 10:52 09/24/20 10:52 09/24/20 10:52 Course - Vital Signs Vital signs: Temp Pulse Resp BP Pulse Ox 98.0 F 65 16 123/75 99 09/24/20 10:52 09/24/20 10:52 09/24/20 10:52 09/24/20 10:52 09/24/20 10:52
--- NOTE | 2020-09-24 14:05 | EKG REPORT ---
SEVERITY:- ABNORMAL ECG - SINUS RHYTHM FIRST DEGREE AV BLOCK PROBABLE LEFT ATRIAL ABNORMALITY CONSIDER ANTEROSEPTAL INFARCT : Confirmed by: Ney Mireles MD 24-Sep-2020 14:05:12
--- NOTE | 2020-09-24 14:07 | RADIOLOGY REPORT (SQ) ---
EXAM DESCRIPTION: CHEST SINGLE VIEW IMAGES COMPLETED DATE/TIME: 09/24/2020 1:53 pm REASON FOR STUDY: chest pain COMPARISON: 12/15/2019 EXAM PARAMETERS: NUMBER OF VIEWS: One view. TECHNIQUE: Single frontal radiographic view of the chest acquired. RADIATION DOSE: NA LIMITATIONS: None. FINDINGS: LUNGS AND PLEURA: Low lung volumes with resultant bronchovascular crowding. No focal cons olidation, pleural effusion, or pneumothorax evident. MEDIASTINUM AND HILAR STRUCTURES: No masses. Contour normal. HEART AND VASCULAR STRUCTURES: Cardiomegaly without central vascular congestion. BONES: No acute findings. HARDWARE: Dual-lumen catheter terminates in the region of the superior vena cava. OTHER: No other significant finding. IMPRESSION: Low lung volumes. No discrete radiographic evidence of acute cardiopulmonary abnormalit y. TECHNICAL DOCUMENTATION: JOB ID: [id number] 2010 [employer]- All Rights Reserved Reading location - IP/workstation name: [email or web address]
[2020-09-24 16:25] LABS: HEMATOCRIT 31.5 % (36.0-47.0); HEMOGLOBIN 10.2 g/dL (12.0-15.5); MEAN CORPUSCULAR HEMOGLOBIN 23.9 pg (27.0-33.4); MEAN CORPUSCULAR HGB CONC 32.5 g/dL (32.0-36.0); MEAN CORPUSCULAR VOLUME 73 fl (80-97); RED BLOOD COUNT 4.29 10^6/uL (3.72-5.28); RED CELL DISTRIBUTION WIDTH 16.5 % (11.5-14.0); WHITE BLOOD COUNT 2.6 10^3/uL (4.0-10.5)
[2020-09-24 16:43] LABS: ALBUMIN 4.1 g/dL (3.5-5.0); ALKALINE PHOSPHATASE 121 U/L (38-126); ANION GAP 14 (5-19); ASPARTATE AMINO TRANSFERASE 29 U/L (14-36); BILIRUBIN,DIRECT 0.6 mg/dL (0.0-0.4); BILIRUBIN,TOTAL 0.6 mg/dL (0.2-1.3); BLOOD UREA NITROGEN 36 mg/dL (7-20); CALCIUM 9.9 mg/dL (8.4-10.2); CARBON DIOXIDE 30 mmol/L (22-30); CHLORIDE 89 mmol/L (98-107); CREATINE KINASE 82 U/L (30-135); GLUCOSE 106 mg/dL (75-110); POTASSIUM 4.6 mmol/L (3.6-5.0); TOTAL PROTEIN 7.6 g/dL (6.3-8.2)
[2020-09-24 16:50] LABS: PLATELET COUNT 63 10^3/uL (150-450)
[2020-09-24 16:54] LABS: ABSOLUTE LYMPHOCYTES# (MANUAL) 0.6 10^3/uL (0.5-4.7); ABSOLUTE MONOCYTES # (MANUAL) 0.1 10^3/uL (0.1-1.4); BAND NEUTROPHILS % (MANUAL) 1 % (3-5); BASOPHILS % (MANUAL) 0 % (0-2); CREATINE KINASE MB 1.22 ng/mL (<4.55); EOSINOPHILS % (MANUAL) 1 % (0-6); LYMPHOCYTES % (MANUAL) 23 % (13-45); MONOCYTES % (MANUAL) 4 % (3-13); SEGMENTED NEUTROPHILS % (MAN) 70 % (42-78); TOTAL CELLS COUNTED 100
[2020-09-24 16:55] LABS: ANISOCYTOSIS 1+
[2020-09-24 16:56] LABS: TROPONIN I < 0.012 ng/mL
[2020-09-24 16:57] LABS: OVALOCYTES SLIGHT; POIKILOCYTOSIS SLIGHT; TEAR DROP CELLS SLIGHT
[2020-09-24 16:58] LABS: PLATELET COMMENT DECREASED
[2020-09-24] MEDS ORDERED: FENTANYL CITRATE INJ/PF 100 MCG/2 ML AMPUL NASL ONE (18:11)
[2020-09-24] MEDS ORDERED: ONDANSETRON 4 MG TAB.RAPDIS PO ONE (18:32)
--- NOTE | 2020-09-24 18:35 | ER Document Report ---
ED General - General Chief Complaint: Nausea/Vomiting Stated Complaint: ABNORMAL LAS RESULTS Time Seen by Provider: 09/24/20 12:17 Mode of Arrival: Wheelchair Information source: Patient TRAVEL OUTSIDE OF THE U.S. IN LAST 30 DAYS: No - HPI Notes: This patient is a 54-year-old female with end-stage renal disease on hemodialysis who is moving to our area from the [facility] to be closer to family. She was supposed to dialyze at [facility] today but that was not accomplished. The story is a little unclear as to why that is the case. The patient indicates that she went to the ER but was told she could not be dialyzed because her outpatient Covid test, which was taken yesterday, had not yet been resulted. However, it appears that she was hospitalized at [place] within the last few days. The patient states that she was there "just to get checked out" and that it was a week or 2 ago. In any case [facility] sent her here to the emergency department saying they could not help her tonight. The patient reports some pain in her legs and some nausea. She says the symptoms are pretty typical when she starts to retain fluid. She denies any fever or chills. She denies any shortness of breath. She is otherwise in her usual state of health. - Related Data Allergies/Adverse Reactions: acetaminophen [From Percocet] Allergy (Verified 09/08/18 11:21) rash oxycodone HCl [From Percocet] Allergy (Verified 09/08/18 11:21) sulfamethoxazole [From Bactrim] Allergy (Verified 09/08/18 11:21) trimethoprim [From Bactrim] Allergy (Verified 09/08/18 11:21) alprazolam [From Xanax] Adverse Reaction (Verified 09/08/18 11:21) Hallucinations Past Medical History - General Information source: Patient - Social History Smoking Status: Never Smoker Chew tobacco use (# tins/day): No Frequency of alcohol use: None Drug Abuse: None Family History: Reviewed & Not Pertinent Patient has homicidal ideation: No - Medical History Medical History: Other Notes: Past medical history as recorded in the electronic health record is reviewed. - Past Medical History Cardiac Medical History: Reports: Hx Congestive Heart Failure - diastolic heart failure, Hx Coronary Artery Disease, Hx Heart Attack, Hx Hypertension Denies: Hx DVT, Hx Hypercholesterolemia, Hx Pulmonary Embolism Pulmonary Medical History: Reports: Hx Asthma Neurological Medical History: Reports: Hx Cerebrovascular Accident, Hx Seizures - Last episode in 2014 Endocrine Medical History: Denies: Hx Diabetes Mellitus Type 1, Hx Diabetes Mellitus Type 2, Hx Hyperthyroidism, Hx Hypothyroidism Renal/ Medical History: Reports: Hx End Stage Renal Disease, Hx Hemodialysis. Denies: Hx Peritoneal Dialysis - Hemodialysis GI Medical History: Reports: Hx Gastroesophageal Reflux Disease, Hx Hepatitis - Hepatitis B. Denies: Hx Cirrhosis Musculoskeletal Medical History: Reports Hx Arthritis, Reports Hx Musculoskeletal Deformity Skin Medical History: Denies Hx Eczema, Denies Hx Psoriasis Psychiatric Medical History: Denies: Hx Depression Infectious Medical History: Reports: Hx Hepatitis - Hepatitis B, Hx HIV Past Surgical History: Reports: Hx Cardiac Catheterization - In July 2019 and was negative, Hx Coronary Stent, Hx Hysterectomy, Hx Myringotomy - 2017, Hx Valve Replacement - Dialysis catheter, Other - Perm cath insertion - Immunizations Immunizations up to date: No Hx Diphtheria, Pertussis, Tetanus Vaccination: Yes Review of Systems - Review of Systems Notes: All other systems reviewed are negative or noncontributory except as noted in the present illness. Physical Exam - Vital signs Vitals: Temp Pulse Resp BP Pulse Ox 98.0 F 65 16 123/75 99 09/24/20 10:52 09/24/20 10:52 09/24/20 10:52 09/24/20 10:52 09/24/20 10:52 - Notes Notes: General: This is a well-developed well-nourished female no acute distress. Vital signs and nursing documentation are reviewed. HEENT: Normocephalic atraumatic. EOMI. Mucous membranes are moist. ENT exam otherwise unremarkable. Neck: Supple, no JVD. Chest: Normal configuration no respiratory distress lungs clear auscultation all charles. Heart: Regular rate and rhythm without murmur. Abdomen: Soft nontender no masses guarding rigidity or guarding. Extremities: Trace to 1+ edema to the mid tibia bilaterally. This is somewhat tender to palpation but there is no evidence of cellulitis or secondary infection. Peripheral capillary refill is normal. Skin: Warm, moist, good turgor, no rashes. Neuro: Alert and oriented x3. Cranial nerves are intact. Strength and sensation are grossly within normal limits. Course - Re-evaluation Re-evalutation: 09/24/20 18:42 Patient rested fairly comfortably throughout her stay. IV access was a problem so I ordered intranasal fentanyl and orally dissolving ondansetron for her. I discussed the case with Dr. Hendricks, the lead hospitalist today, and with Dr. Davis, the banking services advisor on-call. Dr. Davis is familiar with the patient's history. Ultimately we decided that the only way we could dialyze this patient would be to put her in observation tonight and get her done first thing in the morning. The hospitalist service accepted her for observation. The patient was in stable condition at this time. - Vital Signs Vital signs: Temp Pulse Resp BP Pulse Ox 98.0 F 65 12 139/71 H 97 09/24/20 10:52 09/24/20 10:52 09/24/20 17:01 09/24/20 17:00 09/24/20 17:01 - Laboratory Results Result Diagrams: 09/24/20 16:05 09/24/20 16:05 Laboratory Results Interpreted: 09/24/20 09/24/20 16:05 16:05 WBC 2.6 L Hgb 10.2 L Hct 31.5 L MCV 73 L MCH 23.9 L RDW 16.5 H Plt Count 63 L Band Neutrophils % 1 L Sodium 132.5 L Chloride 89 L BUN 36 H Creatinine 7.69 H Est GFR ( Amer) 7 L Est GFR (MDRD) Non-Af 5 L Direct Bilirubin 0.6 H Critical Laboratory Results Reviewed: No Critical Results - Radiology Results Critical Radiology Results Reviewed: No Critical Results Discharge - Discharge Clinical Impression: End stage renal disease Condition: Stable Disposition: ADMITTED OBSERVATION Admitting Provider: TRISH Macdonald Unit Admitted: Medical Floor
[2020-09-24] MEDS ORDERED: ONDANSETRON 4 MG TAB.RAPDIS PO PRN (19:13)
--- NOTE | 2020-09-24 20:01 | PDOC H&P ---
History of Present Illness Admission Date/PCP: Date: 09/24/2020 Unestablished with local PCP. Patient complains of: Fatigue, nausea, need for dialysis History of Present Illness: HARVINDER LUZ is a 54 year old female with history of end-stage renal disease on dialysis who presented to [facility] today from dialysis center [facility]. Per patient she was supposed to get dialysis at [facility] yesterday but was told she could not because her Covid test was pending thus they told her to come to the emergency department for dialysis. Last received dialysis on Monday09/22/2020. Today complains of fatigue, nausea, body aches, lower extremity swelling, all of which she states are consistent with her retaining fluid. She tells me that she is producing minimal amounts of urine on a daily basis, typically in the morning, typically only once a day. She denies fever, chills, cough, chest pain, palpitations, shortness of breath, or diarrhea. Patient new to the area recently moved to be closer to family, recently established care at [facility] and is and tells me that she is familiar with Dr. Davis, nephrology, though it is unclear if she has established full care there or just plans to establish care with her. Was initially diagnosed with end- stage renal disease in 2016. Current dialysis schedule Monday, , Monday with tells me that the plan is to change her dialysis schedule to , Monday, Monday. She is unable to tell me what her baseline BUN or creatinine. Previous labs reviewed BUN today is 36 and it appears that it has been as high as 100 in the past. Creatinine today 7.69 has been as high as 13 in the past. eGFR 5. Evaluation in the emergency department patient is hemodynamically stable. Her O2 sats are 100% on 2 L nasal cannula. Patient has supplemental O2 at home. Labs notable for pancytopenia. She is hyponatremic sodium 132.5 with BUN 36 and creatinine 7.69. Negative cardiac enzymes. Chest x-ray notable for low lung volumes without evidence of acute cardiopulmonary abnormality. Emergency department physician consulted Dr. Davis regarding patient. Plan is to admit the patient to our services for observation with plan for dialysis tomorrow morning. Past Medical History Cardiac Medical History: Reports: Congestive Heart Failure - diastolic heart failure, Coronary Artery Disease, Myocardial Infarction, Hypertension Denies: DVT, Hyperlipidema, Pulmonary Embolism Pulmonary Medical History: Reports: Asthma Neurological Medical History: Reports: Ischemic CVA, Seizures - Last episode in 2014 Endocrine Medical History: Denies: Diabetes Mellitus Type 1, Diabetes Mellitus Type 2, Hyperthyroidism, Hypothyroidism Renal/ Medical History: Reports: End Stage Renal Disease Malignancy Medical History: Reports: None GI Medical History: Reports: Gastroesophageal Reflux Disease, Hepatitis - Hepatitis B Denies: Cirrhosis Musculoskeltal Medical History: Reports: Arthritis Skin Medical History: Denies: Eczema, Psoriasis Psychiatric Medical History: Denies: Depression Hematology: Reports: Anemia Infectious Medical History: Reports: HIV Past Surgical History Past Surgical History: Reports: Cardiac Catheterization - In July 2019 and was negative, Coronary Stent, Hysterectomy, Valve Replacement - Dialysis catheter, Other - Perm cath insertion Social History Information Source: Patient Lives with: Spouse/Significant other Smoking Status: Never Smoker Electronic Cigarette use?: No Frequency of Alcohol Use: None Hx Recreational Drug Use: No Drugs: None Hx Prescription Drug Abuse: No - Advance Directive Resuscitation Status: Full Code Family History Family History: Hypertension, Malignancy, Other - CKD Parental Family History Reviewed: Yes Children Family History Reviewed: Yes Sibling(s) Family History Reviewed.: Yes Medication/Allergy Home Medications: Clonazepam [Klonopin 2 mg Tablet] 2 mg PO BID 06/15/17 Hydralazine HCl 100 mg PO Q12 06/15/17 Labetalol HCl [Trandate] 300 mg PO Q12 06/15/17 Levetiracetam [Keppra 500 mg Tablet] 500 mg PO Q12 06/15/17 Minoxidil [Loniten 2.5 mg Tablet] 2.5 mg PO PDIA 06/15/17 Gabapentin [Neurontin 100 mg Capsule] 100 mg PO Q12 09/24/20 Atovaquone 750 mg PO Q12 09/25/20 Dolutegravir Sodium [Tivicay] 50 mg PO DAILY 09/25/20 Pantoprazole Sodium [Protonix [address] Tablet] 40 mg PO QAM 09/25/20 Tenofovir Alafenamide [Vemlidy] 25 mg PO DAILY 09/25/20 Allergies/Adverse Reactions: acetaminophen [From Percocet] Allergy (Verified 09/08/18 11:21) rash oxycodone HCl [From Percocet] Allergy (Verified 09/08/18 11:21) sulfamethoxazole [From Bactrim] Allergy (Verified 09/08/18 11:21) trimethoprim [From Bactrim] Allergy (Verified 09/08/18 11:21) alprazolam [From Xanax] Adverse Reaction (Verified 09/08/18 11:21) Hallucinations Review of Systems Constitutional: PRESENT: fatigue, headache(s), weakness. ABSENT: anorexia, chills, fever(s) Eyes: ABSENT: visual disturbances Ears: ABSENT: hearing changes Cardiovascular: PRESENT: edema. ABSENT: chest pain, dyspnea on exertion, orthropnea, palpitations Respiratory: PRESENT: dyspnea. ABSENT: cough Gastrointestinal: PRESENT: abdominal pain, nausea. ABSENT: constipation, diarrhea, vomiting Genitourinary: PRESENT: other - Produces minial urine, as per baseline. ABSENT: dysuria, hematuria Musculoskeletal: ABSENT: back pain Integumentary: ABSENT: diaphoresis, pruritus, rash Neurological: ABSENT: confusion, dizziness, syncope, weakness Psychiatric: ABSENT: anxiety, depression Endocrine: ABSENT: cold intolerance, heat intolerance, polydipsia, polyphagia, polyuria Hematologic/Lymphatic: ABSENT: easy bleeding, lymphadenopathy Physical Exam Vital Signs: Temp Pulse Resp BP Pulse Ox 98.0 F 65 12 139/71 H 97 09/24/20 10:52 09/24/20 10:52 09/24/20 17:01 09/24/20 17:00 09/24/20 17:01 Intake & Output 09/23/20 09/24/20 09/25/20 06:59 06:59 06:59 Weight 69.5 kg General appearance: PRESENT: no acute distress, cooperative, well-developed, well-nourished Head exam: PRESENT: atraumatic, normocephalic Eye exam: PRESENT: EOMI, PERRLA Mouth exam: PRESENT: moist, neck supple Neck exam: PRESENT: full ROM. ABSENT: JVD, lymphadenopathy Respiratory exam: PRESENT: clear to auscultation dee, symmetrical, unlabored Cardiovascular exam: PRESENT: RRR. ABSENT: diastolic murmur, systolic murmur Pulses: PRESENT: normal radial pulses GI/Abdominal exam: PRESENT: soft. ABSENT: guarding, mass, tenderness Extremities exam: PRESENT: full ROM, +1 edema - trace, extends to mid tibia bilaterally. ABSENT: tenderness Musculoskeletal exam: PRESENT: ambulatory, full ROM. ABSENT: deformity, dislocation Neurological exam: PRESENT: alert, awake, oriented to person, oriented to place, oriented to time, oriented to situation, CN II-XII grossly intact. ABSENT: altered, motor sensory deficit Psychiatric exam: PRESENT: appropriate affect, normal mood Skin exam: PRESENT: dry, intact, warm, other - Portacath in place right chest wall, without bruit, without TTP, without surrounding edema, erythema or warmth. Results Laboratory Results: 09/24/20 16:05 09/24/20 16:05 09/24/20 09/24/20 16:05 16:05 WBC 2.6 L RBC 4.29 Hgb 10.2 L Hct 31.5 L MCV 73 L MCH 23.9 L MCHC 32.5 RDW 16.5 H Plt Count 63 L Seg Neutrophils % Not Reportable Sodium 132.5 L Potassium 4.6 Chloride 89 L Carbon Dioxide 30 Anion Gap 14 BUN 36 H Creatinine 7.69 H Est GFR ( Amer) 7 L Glucose 106 Calcium 9.9 Total Bilirubin 0.6 AST 29 Alkaline Phosphatase 121 Total Protein 7.6 Albumin 4.1 09/24/20 09/24/20 16:05 16:05 Creatine Kinase 82 CK-MB (CK-2) 1.22 Troponin I < 0.012 Impressions: Chest X-Ray 09/24/20 12:26 IMPRESSION: Low lung volumes. No discrete radiographic evidence of acute cardiopulmonary abnormality. Assessment and Plan - Diagnosis (1) End stage renal disease due to hypertension Is this a current diagnosis for this admission?: Yes Plan: End-stage renal disease on hemodialysis. BUN 36, Creatinine 7.69 Pt appears to be retaining fluid. Established with Dr. Davis at [facility], unable to dialysis due to pending Covid test, referred to [facility] for dialysis. Last dialysis Saturday 09/22. Dr. Davis, nephrology, consulted, agrees to see patient. Renally dose medications. Avoid nephrotoxic medications. BMP in morning for kidney function. Plan: admit as obs with dialysis tomorrow morning. (2) Nausea Is this a current diagnosis for this admission?: Yes Plan: Per pt consistent when she misses dialysis. Zofran prn. (3) Hyponatremia Is this a current diagnosis for this admission?: Yes Plan: Na 132.5. Likely secondary to volume overload. Plan for hemodialysis tomorrow morning. (4) Anemia in chronic kidney disease Qualifiers: Chronic kidney disease stage: on chronic dialysis Qualified Code(s): N18.6 - End stage renal disease; D63.1 - Anemia in chronic kidney disease; Z99.2 - Dependence on renal dialysis Is this a current diagnosis for this admission?: Yes Plan: Hgb 10.2 / Hct 31.5 Hemodialysis tomorrow morning. Interestingly patient tells me she is followed by [employer] and receives injection q two weeks for anemia, unable to tell me what the injection is at this time. (5) Hypertension Qualifiers: Hypertension type: essential hypertension Qualified Code(s): I10 - Essential (primary) hypertension Is this a current diagnosis for this admission?: Yes Plan: BP 130/90s on exam. Patient unable to recall names or doses of home medications states her is on the way with her medication and will confirm current medications and doses. She has taken all BP medications today. Resume home medication once confirmed. Monitor BP. (6) Seizure disorder Is this a current diagnosis for this admission?: Yes Plan: Able to tell me she takes Keppra 500mg BID. Notes two additional seizure medications but unable to confirm names or doses. Has taken all seizure doses today. Resume home medications once confirmed by . (7) Encounter for screening laboratory testing for COVID-19 virus in asymptomatic patient Is this a current diagnosis for this admission?: Yes Plan: Per pt she was unable to get dialysis in outpatient setting due to pending Covid test results referred to [facility] for dialysis. Covid test 09/24/2020 negative. (8) HIV (human immunodeficiency virus infection) Qualifiers: HIV symptom status: asymptomatic Qualified Code(s): Z21 - Asymptomatic human immunodeficiency virus [HIV] infection status Is this a current diagnosis for this admission?: Yes Plan: With history of HIV. Resume home medications. - Plan Summary Summary: Admit patient as obs with plan to dialysis tomorrow morning with [facility] following. - Time Time Spent with patient: 35 or more minutes Medications reviewed and adjusted accordingly: Yes Anticipated Discharge Disposition: Home, Self Care Anticipated Discharge Timeframe: within 24 hours
[2020-09-25] MEDS: CLONAZEPAM 1 MG TABLET PO SCH ×2 (00:19→09:04)
[2020-09-25] MEDS: HYDROMORPHONE HCL 2 MG TABLET PO PRN ×3 (00:19→14:33)
[2020-09-25] MEDS ORDERED: HEPARIN SOD (PORCINE) 1,000 UNIT/ML 10 ML VIAL IV PRN (05:00)
[2020-09-25] MEDS ORDERED: NORMAL SALINE 1000 ML 1,000 ML IV PRN (05:00)
[2020-09-25 07:47] LABS: ABSOLUTE EOSINOPHILS # (AUTO) 0.2 10^3/uL (0.0-0.6); ABSOLUTE LYMPHOCYTES (AUTO) 0.6 10^3/uL (0.5-4.7); ABSOLUTE MONOCYTES (AUTO) 0.3 10^3/uL (0.1-1.4); ABSOLUTE NEUT (AUTO) 1.9 10^3/uL (1.7-8.2); BASOPHILS % (AUTO) 1.5 % (0-2); EOSINOPHILS % (AUTO) 5.4 % (0-6); HEMATOCRIT 31.3 % (36.0-47.0); HEMOGLOBIN 10.2 g/dL (12.0-15.5); LYMPHOCYTES % (AUTO) 19.9 % (13-45); MEAN CORPUSCULAR HEMOGLOBIN 24.2 pg (27.0-33.4); MEAN CORPUSCULAR HGB CONC 32.6 g/dL (32.0-36.0); MEAN CORPUSCULAR VOLUME 74 fl (80-97); MONOCYTES % (AUTO) 10.1 % (3-13); RED BLOOD COUNT 4.22 10^6/uL (3.72-5.28); RED CELL DISTRIBUTION WIDTH 16.5 % (11.5-14.0); SEGMENTED NEUTROPHILS % (AUTO) 63.1 % (42-78); TOTAL CELLS COUNTED % (AUTO) 100 %
[2020-09-25 08:03] LABS: ANION GAP 12 (5-19); BLOOD UREA NITROGEN 44 mg/dL (7-20); CALCIUM 9.9 mg/dL (8.4-10.2); CARBON DIOXIDE 32 mmol/L (22-30); CHLORIDE 89 mmol/L (98-107); GLUCOSE 94 mg/dL (75-110); POTASSIUM 5.1 mmol/L (3.6-5.0)
[2020-09-25 09:17] LABS: PLATELET COUNT 71 10^3/uL (150-450)
[2020-09-25] MEDS ORDERED: LABETALOL HCL 300 MG PO SCH (10:00)
[2020-09-25] MEDS ORDERED: LEVETIRACETAM 500 MG TABLET PO SCH (10:00)
[2020-09-25] MEDS ORDERED: (PENDING PHARMACY ID) (Hydralazine Hcl [Hydralazine Hcl] 100 MG Tablet) PO SCH (10:00)
[2020-09-25] MEDS ORDERED: DOLUTEGRAVIR SODIUM 50 MG PO SCH (10:00)
[2020-09-25] MEDS ORDERED: TENOFOVIR ALAFENAMIDE 25 MG PO SCH (10:00)
[2020-09-25] MEDS ORDERED: PANTOPRAZOLE SODIUM 40 MG PACKET.DR PO SCH (10:00)
[2020-09-25] MEDS ORDERED: LABETALOL HCL 200 MG TABLET PO SCH (11:00)
[2020-09-25] MEDS ORDERED: HYDRALAZINE HCL 50 MG TABLET PO SCH (11:00)
--- NOTE | 2020-09-25 12:15 | PDOC CONSULTATION ---
Consultation Consult Date: 09/25/20 Provider Consulted: GILDA BLANCA Consult reason:: ESRD History of Present Illness Admission Date/PCP: 09/24/20 18:58 History of Present Illness: HARVINDER LUZ is a 54 year old -F[place] female with history of ESRD hypertensive nephrosclerosis hemodialysis 3 times a week tension, coronary artery disease with cardiac stent, history of diastolic CHF, history of HIV who was admitted yesterday for observation because she missed dialysis treatment. Patient has moved down here in [place] from [place] 2 days ago. Her last hemodialysis was last Monday of this week. Arrangements are being made for her to do dialysis as an outpatient at [facility] here in [place] and I have actually accepted her as a patient that we required her to have Covid testing which did not become available on time prior to her moving here. So yesterday she called [facility] but they could not accept her as a patient because of pending Covid testing so she went to the emergency room instead. She had a Covid test, SARS-CoV-2 RT-PCR which came out to be negative from yesterday. She told me she has had 3 previous testing for Covid a while back which turned out to be all negative. So in the ED yesterday she complained of having generalized body malaise and body aches, feeling tired, nauseated with slight leg swelling. She denies any chest pains, shortness of breath, vomiting, diarrhea, fever nor cough. She states that she is eating fine. She has been on hemodialysis since 2016. She has never had a AV fistula because she said she was not ready for placement and she is always had her CVC for dialysis. I am seeing her currently during dialysis treatment. He is doing fine and appears well. She is tolerating dialysis without any problems. Her b lood pressure is slightly elevated at the start of dialysis but it was fine prior to dialysis. Past Medical History Cardiac Medical History: Reports: CHF-Diastolic, Coronary Artery Disease, Hypertension-primary, Myocardial Infarction Pulmonary Medical History: Reports: Asthma Neurological Medical History: Reports: Ischemic CVA, Seizures - Last episode in 2014 Renal/ Medical History: Reports: End Stage Renal Disease GI Medical History: Reports: Gastroesophageal Reflux Disease, Hepatitis - Hepatitis B Musculoskeltal Medical History: Reports: Arthritis Infectious Medical History: Reports: HIV Hematology Medical History: Reports Anemia of Chronic Kidney Disease Past Surgical History Past Surgical History: Reports: Cardiac Catheterization - In July 2019 and was negative, Coronary Stent, Hysterectomy, Other - Perm cath insertion Social History Information Source: Patient Lives with: Family - [id number], Spouse/Significant other Smoking Status: Never Smoker Electronic Cigarette use?: No Frequency of Alcohol Use: None Hx Recreational Drug Use: No Drugs: None Hx Prescription Drug Abuse: No - Advance Directive Resuscitation Status: Full Code Family History Family History: CAD - Older brother had an LA, Chronic Kidney Disease - Brother on dialysis, DM - Father, Hypertension - Mother and everybody else on her maternal side, Malignancy - Mother and her maternal aunt, Other - Crohn's disease in her daughter Parental Family History Reviewed: Yes Children Family History Reviewed: Yes Sibling(s) Family History Reviewed.: Yes Medication/Allergy Home Medications: Clonazepam [Klonopin 2 mg Tablet] 2 mg PO BID 06/15/17 Hydralazine HCl 100 mg PO Q12 06/15/17 Labetalol HCl [Trandate] 300 mg PO Q12 06/15/17 Levetiracetam [Keppra 500 mg Tablet] 500 mg PO Q12 06/15/17 Minoxidil [Loniten 2.5 mg Tablet] 2.5 mg PO PDIA 06/15/17 Gabapentin [Neurontin 100 mg Capsule] 100 mg PO Q12 09/24/20 Atovaquone 750 mg PO Q12 09/25/20 Dolutegravir Sodium [Tivicay] 50 mg PO DAILY 09/25/20 Pantoprazole Sodium [Protonix [address] Tablet] 40 mg PO QAM 09/25/20 Tenofovir Alafenamide [Vemlidy] 25 mg PO DAILY 09/25/20 Allergies/Adverse Reactions: acetaminophen [From Percocet] Allergy (Verified 09/08/18 11:21) rash oxycodone HCl [From Percocet] Allergy (Verified 09/08/18 11:21) sulfamethoxazole [From Bactrim] Allergy (Verified 09/08/18 11:21) trimethoprim [From Bactrim] Allergy (Verified 09/08/18 11:21) alprazolam [From Xanax] Adverse Reaction (Verified 09/08/18 11:21) Hallucinations Review of Systems All systems: reviewed and no additional remarkable complaints except as stated Review of Systems: Constitutional: ABSENT: chills, fever(s), headache(s), weight gain, weight loss; generalized body aches and body malaise, weakness, and fatigue Eyes: ABSENT: visual disturbances Ears: ABSENT: hearing changes Cardiovascular: ABSENT: chest pain, dyspnea on exertion, orthropnea, palpitations; reports slight leg swelling Respiratory: ABSENT: cough, dyspnea, hemoptysis Gastrointestinal: ABSENT: abdominal pain, constipation, diarrhea, hematemesis, hematochezia, vomiting; admits nausea Genitourinary: ABSENT: dysuria, hematuria Musculoskeletal: ABSENT: joint swelling Integumentary: ABSENT: rash, wounds Neurological: ABSENT: abnormal gait, abnormal speech, confusion, dizziness, focal weakness, numbness, syncope Psychiatric: ABSENT: anxiety, depression Endocrine: ABSENT: cold intolerance, heat intolerance, polydipsia, polyuria Hematologic/Lymphatic: ABSENT: easy bleeding, easy bruising, lymphadenopathy Physical Exam Vital Signs: Temp Pulse Resp BP Pulse Ox 97.7 F 77 16 117/61 97 09/25/20 09:12 09/25/20 08:25 09/25/20 08:25 09/25/20 08:25 09/25/20 08:25 Intake & Output 09/24/20 09/25/20 09/26/20 06:59 06:59 06:59 Intake Total 260 Balance 260 Weight 69.9 kg Vitals during dialysis: Blood pressure 174/98, heart rate of 69, blood flow rate of 400 mL/min and dialysate flow rate of 800 mL/min. Exam: General appearance: No acute distress, cooperative, well-developed, well- nourished Head exam: PRESENT: atraumatic, normocephalic Eye exam: PRESENT: Conjunctiva [place], EOMI, PERRLA. ABSENT: conjunctival injection, scleral icterus Mouth exam: PRESENT: moist, neck supple, tongue midline Neck exam: PRESENT: full ROM. ABSENT: carotid bruit, JVD, lymphadenopathy, thyromegaly Respiratory exam: PRESENT: clear to auscultation bilaterally. ABSENT: rales, rhonchi, stridor, wheezes Cardiovascular exam: PRESENT: RRR, +S1, +S2. ABSENT: systolic murmur Pulses: PRESENT: normal radial pulses, normal dorsalis pedis pulses GI/Abdominal exam: PRESENT: normal bowel sounds, soft. ABSENT: guarding, mass, tenderness Rectal exam: Deferred Extremities exam: PRESENT: full ROM. ABSENT: calf tenderness, pedal edema Musculoskeletal: PRESENT: full ROM. ABSENT: deformity Neurological exam: PRESENT: alert, Awake, Oriented to person, Oriented to place, Oriented to time, reflexes normal, CN II-XII grossly intact. ABSENT: motor sensory deficit Psychiatric exam: PRESENT: appropriate affect, normal mood. ABSENT: homicidal ideation, suicidal ideation Skin exam: PRESENT: intact, dry, warm. ABSENT: rash Results Laboratory Results: 09/25/20 07:07 09/25/20 07:07 09/24/20 09/24/20 09/25/20 16:05 16:05 07:07 WBC 2.6 L 3.0 L RBC 4.29 4.22 Hgb 10.2 L 10.2 L Hct 31.5 L 31.3 L MCV 73 L 74 L MCH 23.9 L 24.2 L MCHC 32.5 32.6 RDW 16.5 H 16.5 H Plt Count 63 L 71 L Seg Neutrophils % Not Reportable 63.1 Sodium 132.5 L Potassium 4.6 Chloride 89 L Carbon Dioxide 30 Anion Gap 14 BUN 36 H Creatinine 7.69 H Est GFR ( Amer) 7 L Glucose 106 Calcium 9.9 Total Bilirubin 0.6 AST 29 Alkaline Phosphatase 121 Total Protein 7.6 Albumin 4.1 09/25/20 07:07 WBC RBC Hgb Hct MCV MCH MCHC RDW Plt Count Seg Neutrophils % Sodium 133.3 L Potassium 5.1 H Chloride 89 L Carbon Dioxide 32 H Anion Gap 12 BUN 44 H Creatinine 8.97 H Est GFR ( Amer) 6 L Glucose 94 Calcium 9.9 Total Bilirubin AST Alkaline Phosphatase Total Protein Albumin 09/24/20 09/24/20 09/24/20 16:05 16:05 21:31 Creatine Kinase 82 CK-MB (CK-2) 1.22 Troponin I < 0.012 Cancelled 09/24/20 23:35 Creatine Kinase CK-MB (CK-2) Troponin I < 0.012 Impressions: Chest X-Ray 09/24/20 12:26 IMPRESSION: Low lung volumes. No discrete radiographic evidence of acute cardiopulmonary abnormality. Assessment & Plan - Diagnosis (1) End stage renal disease due to hypertension Is this a current diagnosis for this admission?: Yes Plan: We will do dialysis today for 3 hours, using the patient's PermCath, with 2 potassium bath, blood flow rate of 400 mL per minute, dialysate flow rate of 800 mL per minute, ultrafiltration 1 L as tolerated, no heparin and no Procrit durin g dialysis. Patient is being monitored throughout dialysis treatment. From nephrology standpoint, patient is stable enough to be discharged after dialysis today. I instructed the patient to call [facility] tomorrow once they open to know her dialysis schedule for next week. Discussed with physician case management assistant , Renae today. (2) Hyponatremia Is this a current diagnosis for this admission?: Yes Plan: Mild. (3) Anemia in chronic kidney disease Qualifiers: Chronic kidney disease stage: on chronic dialysis Qualified Code(s): N18.6 - End stage renal disease; D63.1 - Anemia in chronic kidney disease; Z99.2 - Dependence on renal dialysis Is this a current diagnosis for this admission?: Yes Plan: No need of Retacrit for now. (4) Hyperkalemia Is this a current diagnosis for this admission?: Yes Plan: Mild. Dialysis today. (5) Hypertension Qualifiers: Hypertension type: essential hypertension Qualified Code(s): I10 - Essential (primary) hypertension Is this a current diagnosis for this admission?: Yes - Notes Notes: Thank you very much for this consultation.
[2020-09-25] MEDS: GABAPENTIN 100 MG CAPSULE PO SCH ×2 (14:02→14:33)
[2020-09-25 14:39] VITALS: BP 106/59
--- NOTE | 2020-09-25 15:56 | PDOC DISCHARGE SUMMARY ---
Impression - Admit/DC Date/PCP Admission Date/Primary Care Provider: 09/24/20 18:58 Discharge Date: 09/25/20 - Discharge Diagnosis (1) End stage renal disease due to hypertension Is this a current diagnosis for this admission?: Yes (2) Nausea Is this a current diagnosis for this admission?: Yes (3) Hyponatremia Is this a current diagnosis for this admission?: Yes (4) Anemia in chronic kidney disease Is this a current diagnosis for this admission?: Yes (5) Hypertension Is this a current diagnosis for this admission?: Yes (6) Seizure disorder Is this a current diagnosis for this admission?: Yes (7) Encounter for screening laboratory testing for COVID-19 virus in asymptomatic patient Is this a current diagnosis for this admission?: Yes (8) HIV (human immunodeficiency virus infection) Is this a current diagnosis for this admission?: Yes - Additional Information Resuscitation Status: Full Code Discharge Diet: As Tolerated Discharge Activity: Activity As Tolerated, Balance Activity w/Rest Referrals: [facility] [Outside] (pt to follow up with dialysis ) Home Medications: Clonazepam [Klonopin 2 mg Tablet] 2 mg PO BID 06/15/17 Hydralazine HCl 100 mg PO Q12 06/15/17 Labetalol HCl [Trandate] 300 mg PO Q12 06/15/17 Levetiracetam [Keppra 500 mg Tablet] 500 mg PO Q12 06/15/17 Minoxidil [Loniten 2.5 mg Tablet] 2.5 mg PO PDIA 06/15/17 Gabapentin [Neurontin 100 mg Capsule] 100 mg PO Q12 09/24/20 Atovaquone 750 mg PO Q12 09/25/20 Dolutegravir Sodium [Tivicay] 50 mg PO DAILY 09/25/20 Pantoprazole Sodium [Protonix [address] Tablet] 40 mg PO QAM 09/25/20 Tenofovir Alafenamide [Vemlidy] 25 mg PO DAILY 09/25/20 History of Present Illiness History of Present Illness: HARVINDER LUZ is a 54 year old female with history of end-stage renal disease on dialysis who presented to [facility] today from dialysis center [facility]. Per patient she was supposed to get dialysis at [facility] yesterday but was told she could not because her Covid test was pending thus they told her to come to the emergency department for dialysis. Last received dialysis on Monday09/22/2020. Today complains of fatigue, nausea, body aches, lower extremity swelling, all of which she states are consistent with her retaining fluid. She tells me that she is producing minimal amounts of urine on a daily basis, typically in the morning, typically only once a day. She denies fever, chills, cough, chest pain, palpitations, shortness of breath, or diarrhea. Patient new to the area recently moved to be closer to family, recently e stablished care at [facility] and is and tells me that she is familiar with Dr. Davis, nephrology, though it is unclear if she has established full care there or just plans to establish care with her. Was initially diagnosed with end- stage renal disease in 2016. Current dialysis schedule Monday, , Monday with tells me that the plan is to change her dialysis schedule to Monday, Monday, Monday. She is unable to tell me what her baseline BUN or creatinine. Previous labs reviewed BUN today is 36 and it appears that it has been as high as 100 in the past. Creatinine today 7.69 has been as high as 13 in the past. eGFR 5. Evaluation in the emergency department patient is hemodynamically stable. Her O2 sats are 100% on 2 L nasal cannula. Patient has supplemental O2 at home. Labs notable for pancytopenia. She is hyponatremic sodium 132.5 with BUN 36 and creatinine 7.69. Negative cardiac enzymes. Chest x-ray notable for low lung volumes without evidence of acute cardiopulmonary abnormality. Emergency department physician consulted Dr. Davis regarding patient. Plan is to admit the patient to our services for observation with plan for dialysis tomorrow morning. Hospital Course Hospital Course: End stage renal disease due to hypertension End-stage renal disease on hemodialysis. BUN 36/ Creatineine 7.69 at time of admission. Established with Dr. Davis at [facility], unable to dialysis due to pending Covid test, referred to [facility] for dialysis. Last dialysis Saturday 09/22. Renally dose medications. Avoid nephrotoxic medications. Dr. Davis, nephrology consulted and on board. Discussed case with Dr. Martin. Note was reviewed in detail. Patient received dialysis today with 2 potassium bath, ultrafiltration 1 L as tolerated. Patient sat found to be stable for discharge following dialysis. Patient given instructions to call [facility] at tomorrow to organize her dialysis schedule moving forward. Encounter for screening laboratory testing for COVID-19 virus in asymptomatic patient Per pt she was unable to get dialysis in outpatient setting due to pending Covid test results referred to [facility] for dialysis. Covid test 09/24/2020 negative. Electrolyte abnormalities Including hyponatremia and hyperkalemia prior to dialysis. These were both mild. Anemia in chronic kidney disease Hgb 10.2 / Hct 31.5 on admission remained stable. Patient did not require Retacrit today. Hypertension BP 130/90s on exam. Resume home medication once confirmed. Monitor BP. Seizure disorder Home medications resumed. HIV (human immunodeficiency virus infection) With history of HIV. Resume home medications. Physical Exam Vital Signs: Temp Pulse Resp BP Pulse Ox 97.2 F 74 16 106/59 L 97 09/25/20 14:37 09/25/20 14:37 09/25/20 14:37 09/25/20 14:37 09/25/20 14:37 Intake & Output 09/24/20 09/25/20 09/26/20 06:59 06:59 06:59 Intake Total 260 1020 Output Total 2000 Balance 260 -980 Weight 69.9 kg Additional comments: General appearance: PRESENT: no acute distress, cooperative, well-developed, well-nourished Head exam: PRESENT: atraumatic, normocephalic Neck exam: PRESENT: full ROM. ABSENT: JVD, Respiratory exam: PRESENT: clear to auscultation dee, symmetrical, unlabored Cardiovascular exam: PRESENT: RRR. Pulses: PRESENT: normal radial pulses GI/Abdominal exam: PRESENT: soft. Musculoskeletal exam: PRESENT: ambulatory, full ROM. Neurological exam: PRESENT: alert, awake, oriented to person, oriented to place, oriented to time, oriented to situation, CN II-XII grossly intact. ABSENT: altered, motor sensory deficit Skin exam: PRESENT: dry, intact, warm Results Laboratory Results: WBC 3.0 10^3/uL (4.0-10.5) L 09/25/20 07:07 RBC 4.22 10^6/uL (3.72-5.28) 09/25/20 07:07 Hgb 10.2 g/dL (12.0-15.5) L 09/25/20 07:07 Hct 31.3 % (36.0-47.0) L 09/25/20 07:07 MCV 74 fl (80-97) L 09/25/20 07:07 MCH 24.2 pg (27.0-33.4) L 09/25/20 07:07 MCHC 32.6 g/dL (32.0-36.0) 09/25/20 07:07 RDW 16.5 % (11.5-14.0) H 09/25/20 07:07 Plt Count 71 10^3/uL (150-450) L 09/25/20 07:07 Lymph % (Auto) 19.9 % (13-45) 09/25/20 07:07 Bay % (Auto) 10.1 % (3-13) 09/25/20 07:07 Eos % (Auto) 5.4 % (0-6) 09/25/20 07:07 Baso % (Auto) 1.5 % (0-2) 09/25/20 07:07 Absolute Neuts (auto) 1.9 10^3/uL (1.7-8.2) 09/25/20 07:07 Absolute Lymphs (auto) 0.6 10^3/uL (0.5-4.7) 09/25/20 07:07 Absolute Monos (auto) 0.3 10^3/uL (0.1-1.4) 09/25/20 07:07 Absolute Eos (auto) 0.2 10^3/uL (0.0-0.6) 09/25/20 07:07 Absolute Basos (auto) 0.0 10^3/uL (0.0-0.2) 09/25/20 07:07 Total Counted 100 09/24/20 16:05 Seg Neutrophils % 63.1 % (42-78) 09/25/20 07:07 Seg Neuts % (Manual) 70 % (42-78) 09/24/20 16:05 Band Neutrophils % 1 % (3-5) L 09/24/20 16:05 Lymphocytes % (Manual) 23 % (13-45) 09/24/20 16:05 Atypical Lymphs % 1 % (0) 09/24/20 16:05 Monocytes % (Manual) 4 % (3-13) 09/24/20 16:05 Eosinophils % (Manual) 1 % (0-6) 09/24/20 16:05 Basophils % (Manual) 0 % (0-2) 09/24/20 16:05 Abs Neuts (Manual) 1.8 10^3/uL (1.7-8.2) 09/24/20 16:05 Abs Lymphs (Manual) 0.6 10^3/uL (0.5-4.7) 09/24/20 16:05 Abs Monocytes (Manual) 0.1 10^3/uL (0.1-1.4) 09/24/20 16:05 Absolute Eos (Manual) 0.0 10^3/uL (0.0-0.6) 09/24/20 16:05 Abs Basophils (Manual) 0.0 10^3/uL (0.0-0.2) 09/24/20 16:05 Platelet Comment DECREASED 09/24/20 16:05 Poikilocytosis SLIGHT 09/24/20 16:05 Anisocytosis 1+ 09/24/20 16:05 Microcytosis 1+ 09/24/20 16:05 Tear Drop Cells SLIGHT 09/24/20 16:05 Ovalocytes SLIGHT 09/24/20 16:05 Sodium 133.3 mmol/L (137-145) L 09/25/20 07:07 Potassium 5.1 mmol/L (3.6-5.0) H 09/25/20 07:07 Chloride 89 mmol/L (98-107) L 09/25/20 07:07 Carbon Dioxide 32 mmol/L (22-30) H 09/25/20 07:07 Anion Gap 12 (5-19) 09/25/20 07:07 BUN 44 mg/dL (7-20) H 09/25/20 07:07 Creatinine 8.97 mg/dL (0.52-1.25) H 09/25/20 07:07 Est GFR ( Amer) 6 (>60) L 09/25/20 07:07 Est GFR (MDRD) Non-Af 5 (>60) L 09/25/20 07:07 Glucose 94 mg/dL (75-110) 09/25/20 07:07 Calcium 9.9 mg/dL (8.4-10.2) 09/25/20 07:07 Total Bilirubin 0.6 mg/dL (0.2-1.3) 09/24/20 16:05 Direct Bilirubin 0.6 mg/dL (0.0-0.4) H 09/24/20 16:05 Neonat Total Bilirubin Not Reportable 09/24/20 16:05 Neonat Direct Bilirubin Not Reportable 09/24/20 16:05 Neonat Indirect Bili Not Reportable 09/24/20 16:05 AST 29 U/L (14-36) 09/24/20 16:05 ALT 14 U/L (<35) 09/24/20 16:05 Alkaline Phosphatase 121 U/L (38-126) 09/24/20 16:05 Creatine Kinase 82 U/L (30-135) 09/24/20 16:05 CK-MB (CK-2) 1.22 ng/mL (<4.55) 09/24/20 16:05 Troponin I < 0.012 ng/mL 09/24/20 23:35 Total Protein 7.6 g/dL (6.3-8.2) 09/24/20 16:05 Albumin 4.1 g/dL (3.5-5.0) 09/24/20 16:05 Influenza A (RT-PCR) NEGATIVE (NEGATIVE) 09/24/20 19:13 Influenza B (RT-PCR) NEGATIVE (NEGATIVE) 09/24/20 19:13 RSV (RT-PCR) NEGATIVE (NEGATIVE) 09/24/20 19:13 SARS-CoV-2 Rap RNA(RT-PCR) NEGATIVE (NEGATIVE) 09/24/20 19:13 09/24/20 09/24/20 09/24/20 16:05 21:31 23:35 CK-MB (CK-2) 1.22 Troponin I < 0.012 Cancelled < 0.012 Impressions: Chest X-Ray 09/24/20 12:26 IMPRESSION: Low lung volumes. No discrete radiographic evidence of acute cardiopulmonary abnormality. Plan Plan of Treatment: continue to follow-up with Dr. Davis in outpatient dialysis. Contact [facility] tomorrow to arrange further outpatient dialysis. Time Spent: Greater than 30 Minutes Stroke Is this a Stroke Patient?: No Acute Heart Failure Is this a Heart Failure Patient?: No
== END 2020-09-25 15:55 | disposition home or self-care (01) ==
LOC: ER 10:50 → EH 18:58 → 4S 22:38
PROVIDERS: ADMIT Internal Medicine; ATTEND Physician Assistant
DX: I13.2 Hypertensive heart and chronic kidney disease with heart failure and with stage 5 chronic kidney disease, or end stage renal disease (principal); N18.6 End stage renal disease; I50.30 Unspecified diastolic (congestive) heart failure; D63.1 Anemia in chronic kidney disease; Z99.2 Dependence on renal dialysis; R11.0 Nausea; E87.1 Hypo-osmolality and hyponatremia; E87.5 Hyperkalemia; R60.0 Localized edema; G40.909 Epilepsy, unspecified, not intractable, without status epilepticus; Z20.828 Contact with and (suspected) exposure to other viral communicable diseases; Z21 Asymptomatic human immunodeficiency virus [HIV] infection status; J45.909 Unspecified asthma, uncomplicated; Z79.899 Other long term (current) drug therapy; Z88.8 Allergy status to other drugs, medicaments and biological substances; Z88.0 Allergy status to penicillin
CPT/HCPCS: 93005; 99285; 36415 ×2; 82553; 82550; 85025 ×2; 0241U ×4; 80048; 80053; 84484; 71045; 93010; G0378 ×3; S0119; J3010; C9803